=== PATIENT | male | born 1975 | race Caucasian/White ===

== ENCOUNTER 2016-04-29 07:44 | Outpatient (CLI) | payer MEDICAID | END 2016-04-29 07:45 | disposition home or self-care (01) | DX: E78.5 Hyperlipidemia, unspecified (principal); R63.5 Abnormal weight gain; R73.9 Hyperglycemia, unspecified ==

== ENCOUNTER 2018-01-05 21:04 | Inpatient (IN) | payer SELFPAY ==
--- NOTE | 2018-01-05 21:16 | ED Physician Documentation ---
PD HPI ABD PAIN - Stated complaint Stated Complaint: ABD PX/VOMITING/MALE - Chief complaint Chief Complaint: Abd Pain - History obtained from History obtained from: Patient - History of Present Illness Timing - onset: How many days ago (2-3) Timing - duration: Days (2-3 days of initially lower abd pain midline then to both sides. Today has had increased pain with generalized area to now whole abd, radiating to back and down to testicles area. Nausea with vomiting. Had some loose stools/diarrhea twice yesterday and today. No noted blood in stool.) Timing - details: Gradual onset, Still present Quality: Cramping, Aching, Pain (severe) Location: All over / everywhere (today), Suprapubic (initially lower abd) Radiation: Lower back, Other (testicles) Improved by: Eating. No: Vomiting Worsened by: Moving, Position, Palpation. No: Breathing Associated symptoms: Nausea, Vomiting, Diarrhea, Loss of appetite. No: Fever, Hematemesis, Hematochezia, Dysuria, Hematuria Similar symptoms before: Has not had sx before Recently seen: Not recently seen Review of Systems Constitutional: reports: Chills, Myalgias. denies: Fever Nose: denies: Rhinorrhea / runny nose, Congestion Throat: denies: Sore throat Respiratory: denies: Cough GI: reports: Abdominal Pain, Abdominal Swelling (moderately today), Nausea, Vomiting, Diarrhea. denies: Constipation, Hematemesis, Bloody / black stool : denies: Dysuria, Frequency Skin: denies: Rash Musculoskeletal: denies: Neck pain, Back pain Neurologic: reports: Generalized weakness. denies: Focal weakness, Numbness, Near syncope, Altered mental status, Headache PD PAST MEDICAL HISTORY - Past Medical History Cardiovascular: None Respiratory: Asthma GI: None : None, Kidney stones HEENT: None Psych: ADD/ADHD Musculoskeletal: None - Past Surgical History Past Surgical History: No - Present Medications Home Medications: Ambulatory Orders Medication Instructions Recorded Confirmed traMADol [Ultram] 50 mg PO Q4-6H PRN #30 tablet 04/02/14 Dextroamphetamine/Amphetamine 30 mg PO BID 07/29/15 07/29/15 [Adderall 30 mg Tablet] Lamotrigine [Lamotrigine ER] 100 mg PO BID 06/04/16 06/04/16 - Allergies Allergies/Adverse Reactions: Allergies Allergy/AdvReac Type Severity Reaction Status Date / Time hydrocodone bitartrate * Allergy Intermediate Hallucinati Verified 10/02/14 16:07 [From Vicodin] ons - Social History Does the pt smoke?: No Smoking Status: Former smoker Does the pt drink ETOH?: No Does the pt have substance abuse?: No - Immunizations Immunizations are current?: Yes - POLST Patient has POLST: No PD ED PE NORMAL - Vitals Vital signs reviewed: Yes - General General: Alert and oriented X 3, Well developed/nourished, Other (appears in significant pain. Pain with movements, and is hunched over. ) - Cardiac Cardiac: RRR, No murmur - Respiratory Respiratory: Clear bilaterally - Abdomen Abdomen: No organomegaly, Other (diffuse tender, most in lower abd, with guarding to light touch, involuntary guarding, percussion and rebound tenderness. No inguinal hernias. No swelling nor tenderness of scrotum. ). No: Normal bowel sounds (decreased), Soft - Male Male : Other (normal exam without swelling. ) - Rectal Rectal: Deferred - Back Back: No CVA TTP - Derm Derm: Normal color, Warm and dry - Extremities Extremities: No deformity - Neuro Neuro: Alert and oriented X 3, No motor deficit, Normal speech Results - Vitals Vitals: Vital Signs - 24 hr 01/05/18 21:10 Temperature 37.5 C Heart Rate 103 H Respiratory 17 Rate Blood Pressure 140/73 H O2 Saturation 96 Oxygen O2 Source Room air - Labs Labs: Laboratory Tests 01/05/18 01/05/18 01/05/18 21:46 21:46 21:46 WBC 8.7 RBC 5.23 Hgb 14.3 Hct 42.3 MCV 80.9 MCH 27.4 MCHC 33.9 RDW 15.1 H Plt Count 171 MPV 8.1 Neut # (Auto) 7.1 H Lymph # (Auto) 1.0 L Woodruff # (Auto) 0.5 Eos # (Auto) 0.0 Baso # (Auto) 0.1 Absolute Nucleated RBC 0.00 Nucleated RBC % 0.0 Sodium 133 L Potassium 4.0 Chloride 98 L Carbon Dioxide 27 Anion Gap 8.0 BUN 12 Creatinine 1.1 Estimated GFR (MDRD) 73 L Glucose 121 H Lactic Acid 1.4 Calcium 8.8 Total Bilirubin 0.7 AST 29 ALT 27 Alkaline Phosphatase 68 Total Protein 7.5 Albumin 3.8 Globulin 3.7 Albumin/Globulin Ratio 1.0 Lipase 26 - Rads (name of study) abd/pelvic CT Radiology: Prelim report reviewed, Discussed with rads (sigmoid diverticulitis with small dots of free air, no abscess nor drainable fluid collection, no significant free fluid.), EMP read contemporaneously (area of inflammation around sigmoid colon and spots of free air throughout abd cavity c/w small perforation, likely diverticular. ) PD MEDICAL DECISION MAKING - ED course Complexity details: reviewed results, re-evaluated patient (Lessened pain and no vomiting. Abd still diffusely tender with peritoneal signs. Still no fever. Will give repeat pain meds. ), considered differential (exam concerning for acute peritonitis. No history of diverticulitis. Will get CT. Give IV fluids and meds. Keep NPO. ), d/w patient, d/w home energy consultant supervisor (Dr. Ordonez, Surgery, who said it would not be surgical at this point. Defers to Hospitalist. S/W Hospitalist who will see and admit the patient. ) Departure - Departure Disposition: 66 [facility] DC/Xfer Clinical Impression: Acute diverticulitis, Perforated diverticulum of large intestine Abdominal pain Qualifiers: Abdominal location: generalized Qualified Code(s): R10.84 - Generalized abdominal pain Condition: Stable Record reviewed to determine appropriate education?: Yes
[2018-01-05] MEDS ORDERED: SODIUM CHLORIDE 0.9% 1,000 ML IV ONE ×2 (21:28→23:01)
[2018-01-05] MEDS ORDERED: HYDROmorphone 1 MG/ML CARPUJECT IVP STA ×2 (21:28→22:39)
[2018-01-05] MEDS ORDERED: ONDANSETRON 4 MG/2 ML VIAL IVP STA (21:28)
[2018-01-05 21:55] LABS: BASOPHILS # (AUTO) 0.1 10^3/uL (0.0-0.1); BASOPHILS % (AUTO) 1.2 %; EOSINOPHILS % (AUTO) 0.1 %; HGB - HEMOGLOBIN 14.3 g/dL (14.0-18.0); LYMPHOCYTES % (AUTO) 11.5 %; MEAN CORPUSCULAR HEMOGLOBIN 27.4 pg (27.0-31.0); MEAN CORPUSCULAR HGB CONC 33.9 g/dL (32.0-36.0); MEAN CORPUSCULAR VOLUME 80.9 fL (80.0-94.0); MEAN PLATELET VOLUME 8.1 fL (7.4-11.4); MONOCYTES # (AUTO) 0.5 10^3/uL (0.0-1.0); MONOCYTES % (AUTO) 5.9 %; NEUTROPHILS # (AUTO) 7.1 10^3/uL (1.5-6.6); NEUTROPHILS % (AUTO) 81.3 %; PLT - PLATELET COUNT 171 10^3/uL (130-450); RED BLOOD COUNT 5.23 10^6/uL (4.70-6.10); RED CELL DISTRIBUTION WIDTH 15.1 % (12.0-15.0); WHITE BLOOD COUNT 8.7 x10^3/uL (4.8-10.8)
[2018-01-05] MEDS ORDERED: IOPAMIDOL-300 100 ML VIAL ONE (21:59)
[2018-01-05 22:08] LABS: ALBUMIN 3.8 g/dL (3.2-5.5); BILIRUBIN,TOTAL 0.7 mg/dL (0.2-1.0); CALCIUM 8.8 mg/dL (8.5-10.3); CREATININE 1.1 mg/dL (0.6-1.2); TOTAL PROTEIN 7.5 g/dL (6.7-8.2)
[2018-01-05] MEDS ORDERED: metroNIDAZOLE 500 MG/100 ML 500 MG/100 ML BAG IV ONE (22:27)
[2018-01-05] MEDS ORDERED: AMPICILLIN/SULBACTAM 3 GM in SODIUM CHLORIDE 0.9% MINIBAG 100 ML IV STA (22:27)
[2018-01-05] MEDS ORDERED: IOPAMIDOL-300 100 ML VIAL IVP ONE (22:33)
--- NOTE | 2018-01-05 22:50 | CT Report ---
Reason: lower abd pain, now diffuse pain 2 days Procedure Date: 01/05/2018 Accession Number: [id number] / [id number] Procedure: CT - Abdomen/Pelvis W/ CPT Code: FULL RESULT: EXAM: CT ABDOMEN AND PELVIS EXAM DATE: 01/05/2018 10:16 PM. CLINICAL HISTORY: Lower abd pain, now diffuse pain 2 days. COMPARISONS: 07/20/2013. TECHNIQUE: Routine helical CT imaging was performed through the abdomen and pelvis. IV contrast: 100 ML ISOVUE 300. Enteric contrast: No. Reconstructions: Coronal and sagittal. In accordance with CT protocol optimization, one or more of the following dose reduction techniques were utilized for this exam: automated exposure control, adjustment of mA and/or KV based on patient size, or use of iterative reconstructive technique. FINDINGS: Lung Bases: Unremarkable. Liver: Normal. No masses. Gallbladder/Bile Ducts: Unremarkable. Spleen: Normal. Pancreas: Normal. Adrenal Glands: Normal. Kidneys: Small left renal cyst. Otherwise unremarkable. No hydronephrosis. Peritoneal Cavity/Bowel: Mild colonic diverticulosis with prominent wall thickening in the sigmoid colon and infiltration of adjacent fat. Trace amounts of free air can be seen tracking into the mesentery and anteriorly in the mid abdomen. No drainable fluid collection, significant free fluid, bowel dilation, or lymphadenopathy. The appendix is well visualized and normal. Pelvic Organs: Normal. The bladder and visualized pelvic organs are within normal limits. Vasculature: No aneurysms or other significant abnormality. Bones: No significant abnormality. Other: None. IMPRESSION: Mild diverticulosis with marked acute sigmoid diverticulitis and trace amounts of free air compatible with perforation. RADIA The above findings were discussed with Ricco Pinon by Dr. Donny Bean at 22:48 hrs on 01/05/18.
[2018-01-05] MEDS ORDERED: SODIUM CHLORIDE FLUSH 0.9% 10 ML SYRINGE IVP PRN (23:04)
[2018-01-05] MEDS ORDERED: ZOLPIDEM 5 MG TABLET PO PRN (23:04)
[2018-01-05 23:06] LABS: BILIRUBIN,URINE NEGATIVE (NEGATIVE); GLUCOSE, URINE (UA) NEGATIVE (NEGATIVE); KETONES,URINE (UA) TRACE mg/dL (NEGATIVE); LEUKOCYTE ESTERASE, URINE NEGATIVE (NEGATIVE); NITRITE,URINE NEGATIVE (NEGATIVE); OCCULT BLOOD,URINE NEGATIVE (NEGATIVE); PROTEIN,URINE NEGATIVE (NEGATIVE); UROBILINOGEN,URINE 0.2 (NORMAL) E.U./dL (NORMAL)
[2018-01-05 23:07] LABS: CLARITY,URINE CLEAR (CLEAR)
[2018-01-05] MEDS ORDERED: ONDANSETRON 4 MG/2 ML VIAL IVP PRN (23:09)
[2018-01-05] MEDS ORDERED: METOPROLOL 5 MG/5 ML VIAL IVP PRN (23:15)
[2018-01-05] MEDS ORDERED: LORazepam 2 MG/ML VIAL IVP PRN (23:51)
--- NOTE | 2018-01-05 23:56 | HISTORY & PHYSICAL EXAMINATION ---
History of Present Illness - Admitted From Admitted From:: ED - History Obtained From Records Reviewed: ED Notes History obtained from: Patient and Dr Pinon (ED physician) Exam Limitations: None - History of Present Illness HPI Comment/Other: Patient is a 42-year-old obese male who has a past medical history of untreated hypertension, anxiety, PTSD, depression, who presents with a 2-day history of progressively worsening generalized abdominal pain associated with nausea, vomiting, and subjective fevers and chills that developed last night. Patient also notes that he had 2 episodes of diarrhea last night and noted some dark red coloring to the stool. He presented to the emergency room for further evaluation at the suggestion of his significant other, whereupon in the ER a CT scan of the abdomen was performed and this showed acute diverticulitis with microperforations demonstrated by free air without any abscess, or large perforations. Lab work did not demonstrate any evidence of lactic acidosis or sepsis. His blood work was relatively unremarkable and he has generally no other significant comorbidities. Dr. Mcdermott, general surgery was consulted, and he felt that he did not need any surgical intervention at this time and was unlikely to require any as long as appropriate IV antibiotics were initiated.Due to his pain he did require 2 doses of IV Dilaudid.He was given a single dose of Unasyn and Flagyl and I was called to admit the patient to the medical service. History - Past Medical History Cardiovascular: reports: None, Hypertension (Patient has been told he should take blood pressure medications but has not) GI: reports: None : reports: None, Kidney stones HEENT: reports: None Psych: reports: Depression, Anxiety, ADD/ADHD, Post traumatic stress disorder Musculoskeletal: reports: Chronic back pain MRSA Hx?: No - Past Surgical History Other past surgical history: Orchiectomy as a child - Family & Social History Family History: Mother: , CAD, Diabetes, Type 2, Mental Illness Living arrangement: At home Social History Notes: Patient lives in [place], works in [employer] - Substance History Use: Uses substance without health or social issues: NONE (Patient is a previous smoker quit 4 years ago with a greater than [id number] history) Abuse: Recurrent use of substance despite neg consequences: NONE - POLST Patient has POLST: No Meds/Allgy - Home Medications Home Medications: Ambulatory Orders Medication Instructions Recorded Confirmed traMADol [Ultram] 50 mg PO Q4-6H PRN #30 tablet 04/02/14 Lamotrigine [Lamotrigine ER] 100 mg PO BID 07/29/15 07/29/15 - Allergies Allergies/Adverse Reactions: Allergies Allergy/AdvReac Type Severity Reaction Status Date / Time hydrocodone bitartrate * Allergy Intermediate Hallucinati Verified 10/02/14 16:07 [From Vicodin] ons Review of Systems - Constitutional Constitutional: reports: Fatigue, Fever, Chills, Malaise, Night sweats - Cardiovascular Cariovascular: denies: Chest pain - Respiratory Respiratory: denies: SOB at rest - Gastrointestinal Gastrointestinal: reports: Abdominal pain, Abdominal distention, Diarrhea, Change in bowel habits, Bloody stools, Vomiting, Bile emesis. denies: Rectal bleeding, Black stools, Micheal blood emesis - Genitourinary Genitourinary: denies: Frequency - Musculoskeletal Musculoskeletal: reports: Back pain - Neurological Neurological: reports: Headache - Psychiatric Psychiatric: reports: Depression, Anxiety Prior Level of Functionality: Fully independent and employed Exam - Vital Signs Reviewed Vital Signs: Yes Vital Signs: Vital Signs x48h Temp Pulse Resp BP Pulse Ox 01/05/18 21:10 37.5 C 103 H 17 140/73 H 96 - Physical Exam General Appearance: positive: No acute distress Eyes Bilateral: positive: Normal inspection ENT: positive: ENT inspection nml Neck: positive: Nml inspection Respiratory: positive: Chest non-tender, No respiratory distress, Breath sounds nml Cardiovascular: positive: Regular rate & rhythm, No murmur, No gallop Peripheral Pulses: positive: 2+ Abdomen: positive: Tenderness, Guarding, Rebound Skin: positive: Color nml, No rash, Warm Extremities: positive: Nml appearance, No pedal edema Neurologic/Psychiatric: positive: Oriented x3, CN's nml (2-12), Motor nml, Sensation nml Conclusion/Plan - Problem List (1) Acute diverticulitis Conclusion/Plan: Based on CT scan results, microperforation with acute diverticulitis, patient will be treated with medical management. We will start with IV Zosyn as monotherapy given that this is uncomplicated otherwise. Surgery is aware but at this point no need for surgical intervention. We will follow closely with serial abdominal exams and should things worsen we can reconsider surgical consult. Will repeat labs in the morning but at this point no leukocytosis or evidence of sepsis. Will provide pain control with IV morphine. (2) Perforated diverticulum of large intestine Conclusion/Plan: As discussed above, microperforation which can be treated medically. Will be monitored closely and consider surgical consult should IV Zosyn or other appropriate antibiotics failed to improve symptoms. (3) Hypertension Conclusion/Plan: Patient has apparently been told he has underlying hypertension. His blood pressure is currently elevated. I will start him on lisinopril 20 mg once daily and provide as needed metoprolol. (4) Depression Conclusion/Plan: We will resume the patient's home citalopram and lamotrigine. Qualifiers: Depression Type: major depressive disorder Major depression recurrence: sin gle episode Active/Remission status: currently active Psychotic features: without psychotic features (5) Anxiety Conclusion/Plan: Patient has underlying anxiety. We will provide as needed Ativan at night - Lab Results Lab results reviewed: Yes Fish Bones: 01/05/18 21:46 01/05/18 21:46 - Diagnostic Imaging Results Diagnostic Imaging Results: positive: Final report reviewed Core Measures - Anticipated LOS I expect patient to be DC'd or transferred within 96 hours.: Yes - DVT/VTE - Prophylaxis VTE/DVT Device ordered at admit?: Yes VTE/DVT Prophylaxis med ordered at admit?: Yes
[2018-01-06] MEDS: MORPHINE 2 MG/ML CARPUJECT IVP PRN ×3 (01:26→06:12)
[2018-01-06] MEDS: SODIUM CHLORIDE FLUSH 0.9% 10 ML SYRINGE IVP SCH ×4 (01:27→15:56)
[2018-01-06] MEDS: DEXTROSE 5%-0.9% NACL 1,000 ML IV SCH ×3 (01:28→23:49)
[2018-01-06] MEDS: PIPERACILLIN/TAZOBACTAM 3.375 GM in SODIUM CHLORIDE 0.9% MINIBAG 100 ML IV SCH ×5 (01:31→23:49)
[2018-01-06 05:46] LABS: HGB - HEMOGLOBIN 13.1 g/dL (14.0-18.0); MEAN CORPUSCULAR HEMOGLOBIN 26.9 pg (27.0-31.0); MEAN CORPUSCULAR HGB CONC 32.9 g/dL (32.0-36.0); MEAN CORPUSCULAR VOLUME 81.9 fL (80.0-94.0); MEAN PLATELET VOLUME 8.3 fL (7.4-11.4); RED BLOOD COUNT 4.88 10^6/uL (4.70-6.10); RED CELL DISTRIBUTION WIDTH 15.1 % (12.0-15.0); WHITE BLOOD COUNT 12.3 x10^3/uL (4.8-10.8)
[2018-01-06 05:53] LABS: CALCIUM 7.7 mg/dL (8.5-10.3)
[2018-01-06] MEDS: PANTOPRAZOLE 40 MG VIAL IVP SCH (06:12)
[2018-01-06] MEDS ORDERED: ACETAMINOPHEN 325 MG TABLET PO PRN (06:59)
[2018-01-06] MEDS: HYDROmorphone 2 MG/ML VIAL IVP PRN ×5 (07:42→23:47)
--- NOTE | 2018-01-06 08:07 | CONSULTATION NOTE ---
Referring Provider Consult Date: 01/06/18 Chief Complaint - Chief Complaint Chief Complaint: abdominal pain History of Present Illness - History of Present Illness HPI Comment/Other: 42 yo man who presented to the ER c/o lower abdominal pain since Friday. A CT showed sigmoid inflammation with a few tiny bubbles of free air around the sigmoid. He otherwise had unremarkable labs and normal vitals. He was admitted on antibiotics and close monitoring for non-surgical resolution. This morning, his pain is unchanged. His WBC is slightly elevated and he has had a fever, although he is afebrile now. History - Past Medical History Cardiovascular: reports: None, Hypertension Respiratory: reports: Asthma Endocrine/Autoimmune: reports: None GI: reports: None : reports: Kidney stones HEENT: reports: None Psych: reports: Depression, Anxiety, ADD/ADHD, Post traumatic stress disorder Musculoskeletal: reports: Chronic back pain Derm: reports: None MRSA Hx?: No - Past Surgical History Other past surgical history: Orchiectomy as a child - Family & Social History Family History: Mother: , CAD, Diabetes, Type 2, Mental Illness Living arrangement: At home Social History Notes: Patient lives in [place], works in [employer] - Substance History Use: Uses substance without health or social issues: NONE (Patient is a previous smoker quit 4 years ago with a greater than [id number] history) Abuse: Recurrent use of substance despite neg consequences: NONE - POLST Patient has POLST: No Meds/Allgy - Home Medications Home Medications: Ambulatory Orders Medication Instructions Recorded Confirmed traMADol [Ultram] 50 mg PO Q4-6H PRN #30 tablet 04/02/14 Lamotrigine [Lamotrigine ER] 100 mg PO BID 07/29/15 07/29/15 - Allergies Allergies/Adverse Reactions: Allergies Allergy/AdvReac Type Severity Reaction Status Date / Time hydrocodone bitartrate * Allergy Intermediate Hallucinati Verified 10/02/14 16:07 [From Vicodin] ons Review of Systems - Ears, Nose & Throat Ears, Nose & Throat: reports: Hearing loss - Gastrointestinal Gastrointestinal: reports: Abdominal pain Exam - Vital Signs Vital Signs: Vital Signs x48h Temp Pulse Resp BP Pulse Ox 01/06/18 07:52 36.7 C 94 18 125/71 01/06/18 06:42 93 01/06/18 02:49 37.7 C H 01/06/18 00:50 38.8 C H 108 H 20 137/82 H 93 - Physical Exam General Appearance: positive: Mild distress Eyes Bilateral: positive: Normal inspection ENT: positive: ENT inspection nml Neck: positive: Nml inspection Respiratory: positive: Chest non-tender Abdomen: positive: Tenderness, Guarding Back: positive: Nml inspection Skin: positive: Color nml Extremities: positive: Non-tender Neurologic/Psychiatric: positive: Oriented x3 Conclusion/Plan - Diagnosis Diagnosis: Diverticulitis - Plan Plan: His presentation is most consistent with a microperforated diverticulitis. He is complaining of severe pain in the lower abdomen, but otherwise his presentation is c/w an episode that should respond to medical management. Surgical options were discussed and the pt expressed his desire to avoid surgery. He does not need surgery at this time. - Lab Results Lab results reviewed: Yes Fish Bones: 01/06/18 05:21 01/06/18 05:21
[2018-01-06] MEDS ORDERED: lamoTRIgine 100 MG TABLET PO SCH ×2 (09:00→19:54)
[2018-01-06] MEDS: CITALOPRAM 10 MG TABLET PO SCH (09:06)
[2018-01-06] MEDS: POLYETHYLENE GLYCOL 3350 17 GM PACKET PO SCH (09:06)
[2018-01-06] MEDS: LISINOPRIL 20 MG TABLET PO SCH (09:07)
[2018-01-06] MEDS: HEPARIN 5,000 UNIT/ML VIAL SUBQ SCH ×2 (09:07→20:27)
--- NOTE | 2018-01-06 15:01 | PROVIDER PROGRESS NOTE ---
Assessment/Plan - Problem List (1) Acute diverticulitis Assessment/Plan: Based on CT scan results, microperforation with acute diverticulitis, patient will be treated with medical management. Patient started on IV Zosyn as monotherapy given that this is uncomplicated otherwise. Surgery is aware but at this point no need for surgical intervention. This morning the patient has a worsening WBC which is up to 12,000 from normal. He had a fever overnight 38.8 and continues to have worsening abdominal pain. Patient's pain medication dose was changed to Dilaudid 3 mg with which patient finally has some relief of his pain. Surgery has been consulted and will monitor the patient closely. For now surg delores recommends continuing IV antibiotics and will consider colectomy if patient becomes septic or symptoms are not resolving. Surgery does not recommend follow-up CT scan at this time. (2) Perforated diverticulum of large intestine Conclusion/Plan: As discussed above, microperforation which can be treated medically. Surgery has been consulted and we will continue IV Zosyn. (3) Hypertension Conclusion/Plan: Patient has apparently been told he has underlying hypertension. Patient's blood pressure was elevated on presentation and therefore patient was started on 20 mg of lisinopril. Patient's blood pressure is now well controlled we will continue to monitor his blood pressure and titrate medication as needed. (4) Depression Conclusion/Plan: We will resume the patient's home citalopram and lamotrigine. Stable Qualifiers: Depression Type: major depressive disorder Major depression recurrence: single episode Active/Remission status: currently active Psychotic features: without psychotic features (5) Anxiety Conclusion/Plan: Patient has underlying anxiety. We will provide as needed Ativan at night Patient does display anxiety when talking about possible surgery. - Current Meds Current Meds: Current Medications Generic Name Dose Route Start Last Admin Trade Name Freq PRN Reason Stop Dose Admin Citalopram Hydrobromide 20 mg 01/06/18 09:00 01/06/18 09:06 Celexa PO 20 mg DAILY JENNIFER Administration Heparin Sodium (Porcine) 5,000 unit 01/06/18 09:00 01/06/18 09:07 SUBQ 5,000 unit BID JENNIFER Administration Hydromorphone HCl 3 mg 01/06/18 06:57 01/06/18 11:28 Dilaudid (Vial) IVP 3 mg Q3H PRN Administration PAIN Dextrose/Sodium Chloride 1,000 mls @ 100 mls/hr 01/05/18 23:45 01/06/18 12:21 D5ns IV 100 mls/hr .Q10H JENNIFER Administration Piperacillin Sod/Tazobactam 100 mls @ 200 mls/hr 01/06/18 00:00 01/06/18 13:40 Sod 3.375 gm/ Sodium Chloride IV 01/11/18 00:00 Infused Q6HR JENNIFER Infusion Lisinopril 20 mg 01/06/18 09:00 01/06/18 09:07 Zestril PO 20 mg DAILY JENNIFER Administration Pantoprazole Sodium 40 mg 01/06/18 07:00 01/06/18 06:12 Protonix IVP 40 mg QDAC JENNIFER Administration Polyethylene Glycol 17 gm 01/06/18 09:00 01/06/18 09:06 Miralax PO 17 gm DAILY JENNIFER Administration Sodium Chloride 10 ml 01/05/18 23:04 01/06/18 06:12 Normal Saline Flush 0.9% IVP 10 ml PRN PRN Administration NEEDED PER PROVIDER ORDERS Sodium Chloride 10 ml 01/06/18 01:00 01/06/18 12:21 Normal Saline Flush 0.9% IVP 10 ml 0100,0900,1700 JENNIFER Administration - Lab Result Lab results reviewed: Yes Fish Bone Diagrams: 01/06/18 05:21 01/06/18 05:21 Other Lab Results: Laboratory Results WBC 12.3 x10^3/uL (4.8-10.8) H 01/06/18 05:21 RBC 4.88 10^6/uL (4.70-6.10) 01/06/18 05:21 Hgb 13.1 g/dL (14.0-18.0) L 01/06/18 05:21 Hct 40.0 % (42.0-52.0) L 01/06/18 05:21 MCV 81.9 fL (80.0-94.0) 01/06/18 05:21 MCH 26.9 pg (27.0-31.0) L 01/06/18 05:21 MCHC 32.9 g/dL (32.0-36.0) 01/06/18 05:21 RDW 15.1 % (12.0-15.0) H 01/06/18 05:21 Plt Count 158 10^3/uL (130-450) 01/06/18 05:21 MPV 8.3 fL (7.4-11.4) 01/06/18 05:21 Neut # (Auto) 7.1 10^3/uL (1.5-6.6) H 01/05/18 21:46 Lymph # (Auto) 1.0 10^3/uL (1.5-3.5) L 01/05/18 21:46 [place] # (Auto) 0.5 10^3/uL (0.0-1.0) 01/05/18 21:46 Eos # (Auto) 0.0 10^3/uL (0.0-0.7) 01/05/18 21:46 Baso # (Auto) 0.1 10^3/uL (0.0-0.1) 01/05/18 21:46 Absolute Nucleated RBC 0.00 x10^3/uL 01/05/18 21:46 Nucleated RBC % 0.0 /100WBC 01/05/18 21:46 Sodium 130 mmol/L (135-145) L 01/06/18 05:21 Potassium 3.6 mmol/L (3.5-5.0) 01/06/18 05:21 Chloride 100 mmol/L (101-111) L 01/06/18 05:21 Carbon Dioxide 25 mmol/L (21-32) 01/06/18 05:21 Anion Gap 5.0 (6-13) L 01/06/18 05:21 BUN 11 mg/dL (6-20) 01/06/18 05:21 Creatinine 1.0 mg/dL (0.6-1.2) 01/06/18 05:21 Estimated GFR (MDRD) 81 (>89) L 01/06/18 05:21 Glucose 135 mg/dL (70-100) H 01/06/18 05:21 Lactic Acid 0.7 mmol/L (0.5-2.2) 01/06/18 08:16 Calcium 7.7 mg/dL (8.5-10.3) L 01/06/18 05:21 Total Bilirubin 0.7 mg/dL (0.2-1.0) 01/05/18 21:46 AST 29 IU/L (10-42) 01/05/18 21:46 ALT 27 IU/L (10-60) 01/05/18 21:46 Alkaline Phosphatase 68 IU/L (42-121) 01/05/18 21:46 Total Protein 7.5 g/dL (6.7-8.2) 01/05/18 21:46 Albumin 3.8 g/dL (3.2-5.5) 01/05/18 21:46 Globulin 3.7 g/dL (2.1-4.2) 01/05/18 21:46 Albumin/Globulin Ratio 1.0 (1.0-2.2) 01/05/18 21:46 Lipase 26 U/L (22-51) 01/05/18 21:46 Urine Color YELLOW 01/05/18 23:00 Urine Clarity CLEAR (CLEAR) 01/05/18 23:00 Urine pH 7.0 PH (5.0-7.5) 01/05/18 23:00 Ur Specific [place] 1.015 (1.002-1.030) 01/05/18 23:00 Urine Protein NEGATIVE mg/dL (NEGATIVE) 01/05/18 23:00 Urine Glucose (UA) NEGATIVE mg/dL (NEGATIVE) 01/05/18 23:00 Urine Ketones TRACE mg/dL (NEGATIVE) 01/05/18 23:00 Urine Occult Blood NEGATIVE (NEGATIVE) 01/05/18 23:00 Urine Nitrite NEGATIVE (NEGATIVE) 01/05/18 23:00 Urine Bilirubin NEGATIVE (NEGATIVE) 01/05/18 23:00 Urine Urobilinogen 0.2 (NORMAL) E.U./dL (NORMAL) 01/05/18 23:00 Ur Leukocyte Esterase NEGATIVE (NEGATIVE) 01/05/18 23:00 Ur Microscopic Review NOT INDICATED 01/05/18 23:00 Urine Culture Comments NOT INDICATED 01/05/18 23:00 - Diagnostic Imaging Results Diagnostic Imaging Results: Final report reviewed Diagnostic Imaging Results Comments: CT abdomen/pelvis Impression: Mild diverticulosis with marked acute sigmoid diverticulitis and trace amount of free air compatible with perforation. - Additional Planning Condition/Complexity: Guarded My Orders: My Active Orders 01/06/18 Financial Assistance [[email or web address]] Routine Consult/Specialty: Surgery Plan Discussed with:: Patient Time Spent: 31-60 minutes Subjective - Subjective Patient Reports: Abdominal Pain (Patient continues to have diffuse abdominal pain which is better controlled with 3 mg of IV Dilaudid this morning), Fever, Nausea Nursing Reports: Pain Objective Vital Signs: Vital Signs - 24 hr 01/05/18 01/06/18 01/06/18 21:10 00:04 00:50 Temperature 37.5 C 37.8 C H 38.8 C H Heart Rate 103 H 112 H Heart Rate [ 108 H Brachial] Respiratory 17 17 20 Rate Blood Pressure 140/73 H 127/79 Blood Pressure 137/82 H [Right Brachial artery] O2 Saturation 96 93 93 01/06/18 01/06/18 01/06/18 02:49 06:42 07:52 Temperature 37.7 C H 36.7 C Heart Rate Heart Rate [ 94 Brachial] Respiratory 18 Rate Blood Pressure Blood Pressure 125/71 [Right Brachial artery] O2 Saturation 93 Oxygen O2 Source Room air I&O (Last 24 Hrs): Intake and Output Totals x24h 01/04/18 01/05/18 01/06/18 23:59 23:59 23:59 Intake Total 1100 2760 Balance 1100 2760 General: Alert, Oriented x3, Moderate distress (Pain and anxiety), Other (Diaphoretic) HEENT: Atraumatic, PERRLA, EOMI, Other (Dry mucous membranes.) Neck: Supple, No JVD, No thyromegaly, +2 carotid pulse wo bruit, No LAD Lymphatic: no adenopathy Neuro: Alert, Non Focal, CN 2-12 Grossly Intact, Oriented Times 3 Cardiovascular: Regular rate, Normal S1, Normal S2, No murmurs Respiratory: Chest non-tender, No respiratory distress, Breath sounds nml Abdomen: Normal bowel sounds, Other (Diffuse tenderness. Guarding. Soft abdomen.) Extremities: No clubbing, No cyanosis, No edema, Normal pulses Skin: No rashes, No breakdown - Results Results: Laboratory Results WBC 12.3 x10^3/uL (4.8-10.8) H 01/06/18 05:21 RBC 4.88 10^6/uL (4.70-6.10) 01/06/18 05:21 Hgb 13.1 g/dL (14.0-18.0) L 01/06/18 05:21 Hct 40.0 % (42.0-52.0) L 01/06/18 05:21 MCV 81.9 fL (80.0-94.0) 01/06/18 05:21 MCH 26.9 pg (27.0-31.0) L 01/06/18 05:21 MCHC 32.9 g/dL (32.0-36.0) 01/06/18 05:21 RDW 15.1 % (12.0-15.0) H 01/06/18 05:21 Plt Count 158 10^3/uL (130-450) 01/06/18 05:21 MPV 8.3 fL (7.4-11.4) 01/06/18 05:21 Neut # (Auto) 7.1 10^3/uL (1.5-6.6) H 01/05/18 21:46 Lymph # (Auto) 1.0 10^3/uL (1.5-3.5) L 01/05/18 21:46 [place] # (Auto) 0.5 10^3/uL (0.0-1.0) 01/05/18 21:46 Eos # (Auto) 0.0 10^3/uL (0.0-0.7) 01/05/18 21:46 Baso # (Auto) 0.1 10^3/uL (0.0-0.1) 01/05/18 21:46 Absolute Nucleated RBC 0.00 x10^3/uL 01/05/18 21:46 Nucleated RBC % 0.0 /100WBC 01/05/18 21:46 Sodium 130 mmol/L (135-145) L 01/06/18 05:21 Potassium 3.6 mmol/L (3.5-5.0) 01/06/18 05:21 Chloride 100 mmol/L (101-111) L 01/06/18 05:21 Carbon Dioxide 25 mmol/L (21-32) 01/06/18 05:21 Anion Gap 5.0 (6-13) L 01/06/18 05:21 BUN 11 mg/dL (6-20) 01/06/18 05:21 Creatinine 1.0 mg/dL (0.6-1.2) 01/06/18 05:21 Estimated GFR (MDRD) 81 (>89) L 01/06/18 05:21 Glucose 135 mg/dL (70-100) H 01/06/18 05:21 Lactic Acid 0.7 mmol/L (0.5-2.2) 01/06/18 08:16 Calcium 7.7 mg/dL (8.5-10.3) L 01/06/18 05:21 Total Bilirubin 0.7 mg/dL (0.2-1.0) 01/05/18 21:46 AST 29 IU/L (10-42) 01/05/18 21:46 ALT 27 IU/L (10-60) 01/05/18 21:46 Alkaline Phosphatase 68 IU/L (42-121) 01/05/18 21:46 Total Protein 7.5 g/dL (6.7-8.2) 01/05/18 21:46 Albumin 3.8 g/dL (3.2-5.5) 01/05/18 21:46 Globulin 3.7 g/dL (2.1-4.2) 01/05/18 21:46 Albumin/Globulin Ratio 1.0 (1.0-2.2) 01/05/18 21:46 Lipase 26 U/L (22-51) 01/05/18 21:46 Urine Color YELLOW 01/05/18 23:00 Urine Clarity CLEAR (CLEAR) 01/05/18 23:00 Urine pH 7.0 PH (5.0-7.5) 01/05/18 23:00 Ur Specific [place] 1.015 (1.002-1.030) 01/05/18 23:00 Urine Protein NEGATIVE mg/dL (NEGATIVE) 01/05/18 23:00 Urine Glucose (UA) NEGATIVE mg/dL (NEGATIVE) 01/05/18 23:00 Urine Ketones TRACE mg/dL (NEGATIVE) 01/05/18 23:00 Urine Occult Blood NEGATIVE (NEGATIVE) 01/05/18 23:00 Urine Nitrite NEGATIVE (NEGATIVE) 01/05/18 23:00 Urine Bilirubin NEGATIVE (NEGATIVE) 01/05/18 23:00 Urine Urobilinogen 0.2 (NORMAL) E.U./dL (NORMAL) 01/05/18 23:00 Ur Leukocyte Esterase NEGATIVE (NEGATIVE) 01/05/18 23:00 Ur Microscopic Review NOT INDICATED 01/05/18 23:00 Urine Culture Comments NOT INDICATED 01/05/18 23:00 ABX Reporting Has patient been on IV antibiotics over the past 48 hours?: No Current Medications - Current Medications Current Medications: Active Medications Generic Name Dose Route Start Last Admin Trade Name Freq PRN Reason Stop Dose Admin Acetaminophen 650 mg 01/06/18 06:59 Tylenol PO Q4HR PRN Pain or Fever > 38C (100.4F) Citalopram Hydrobromide 20 mg 01/06/18 09:00 01/06/18 09:06 Celexa PO 20 mg DAILY JENNIFER Administration Heparin Sodium (Porcine) 5,000 unit 01/06/18 09:00 01/06/18 09:07 SUBQ 5,000 unit BID JENNIFER Administration Hydromorphone HCl 3 mg 01/06/18 06:57 01/06/18 11:28 Dilaudid (Vial) IVP 3 mg Q3H PRN Administration PAIN Dextrose/Sodium Chloride 1,000 mls @ 100 mls/hr 01/05/18 23:45 01/06/18 12:21 D5ns IV 100 mls/hr .Q10H JENNIFER Administration Piperacillin Sod/Tazobactam 100 mls @ 200 mls/hr 01/06/18 00:00 01/06/18 13:40 Sod 3.375 gm/ Sodium Chloride IV 01/11/18 00:00 Infused Q6HR JENNIFER Infusion Lisinopril 20 mg 01/06/18 09:00 01/06/18 09:07 Zestril PO 20 mg DAILY JENNIFER Administration Lorazepam 1 mg 01/05/18 23:51 Ativan Inj (Vial) IVP QPM PRN Anxiety Metoprolol Tartrate 5 mg 01/05/18 23:15 Lopressor Inj IVP Q2HR PRN hyperten Non-Formulary Medication 30 mg 01/06/18 09:00 Dextroamphetamine/Amphetamine [Adderall 30 Mg Tablet] PO BID JENNIFER Non-Formulary Medication 100 mg 01/06/18 09:00 Lamotrigine [Lamotrigine Er] PO BID JENNIFER Ondansetron HCl 4 mg 01/05/18 23:09 Zofran Inj IVP Q4HR PRN Nausea / Vomiting Pantoprazole Sodium 40 mg 01/06/18 07:00 01/06/18 06:12 Protonix IVP 40 mg QDAC JENNIFER Administration Polyethylene Glycol 17 gm 01/06/18 09:00 01/06/18 09:06 Miralax PO 17 gm DAILY JENNIFER Administration Sodium Chloride 10 ml 01/05/18 23:04 01/06/18 06:12 Normal Saline Flush 0.9% IVP 10 ml PRN PRN Administration NEEDED PER PROVIDER ORDERS Sodium Chloride 10 ml 01/06/18 01:00 01/06/18 12:21 Normal Saline Flush 0.9% IVP 10 ml 0100,0900,1700 JENNIFER Administration Zolpidem Tartrate 5 mg 01/05/18 23:04 Ambien PO QPM PRN Insomnia Albuterol Sulf [Ventolin Hfa Inhaler] 1 - 2 puffs INH Q4HR PRN 01/06/18 Citalopram Hydrobromide [Citalopram HBr] 20 mg PO DAILY 01/06/18 lamoTRIgine [LaMICtal] 100 mg PO BID 01/06/18
[2018-01-06] MEDS ORDERED: lamoTRIgine 100 MG TABLET PO ONE (19:29)
[2018-01-06] MEDS: LAMOTRIGINE 100 MG PO SCH (20:35)
[2018-01-06] MEDS ORDERED: ALBUTEROL NEB 2.5 MG/3 ML INH PRN (22:59)
[2018-01-07] MEDS: SODIUM CHLORIDE FLUSH 0.9% 10 ML SYRINGE IVP SCH ×4 (03:02→20:01)
[2018-01-07 05:54] LABS: HGB - HEMOGLOBIN 13.1 g/dL (14.0-18.0); MEAN CORPUSCULAR VOLUME 87.3 fL (80.0-94.0); MEAN PLATELET VOLUME 7.9 fL (7.4-11.4); RED BLOOD COUNT 4.85 10^6/uL (4.70-6.10); RED CELL DISTRIBUTION WIDTH 15.8 % (12.0-15.0); WHITE BLOOD COUNT 20.5 x10^3/uL (4.8-10.8)
[2018-01-07 05:59] LABS: CALCIUM 7.5 mg/dL (8.5-10.3); CREATININE 1.9 mg/dL (0.6-1.2)
[2018-01-07] MEDS ORDERED: NALOXONE 0.4 MG/ML VIAL IVP ONE ×2 (06:04→07:25)
--- NOTE | 2018-01-07 06:09 | PROVIDER PROGRESS NOTE ---
Tax Commissioner Note - Tax Commissioner Note Tax Commissioner Note: January 07, 2018 Called to see patient at 05:38 because he was found unresponsive. He is day 3 of being in the hospital. He was admitted on January 05 for diverticulitis with free air, elevated white cell count seen on CAT. Yesterday he had increased pain, increased white cell count, fever. He received 6 mg of morphine and 9 mg of Dilaudid over 24 hours in the patient who is opiate naive. Last dose was 23:00. He did have >700 on bladder scan last night and had an in an out Ivan inserted and removed. He does not take any pain medicine in the outpatient setting. General surgery has been consulted and feels the patient is nonoperative candidate at this time. His /significant other is in the room with him. She states that he has probable obstructive sleep apnea that has been undiagnosed and untreated. He has hypertension, kidney stones, PTSD with anxiety. His chronic back pain is treated with tramadol and lamotrigine. Nursing does report that he has been snoring all night long, and he last received Dilaudid at around 2300. says he sounds like this when he sleeps and she doesn't describe anything different other than snoring was louder overnight (she has been in room in guest bed) Active Medications Acetaminophen (Tylenol) 650 mg PO Q4HR PRN PRN Reason: Pain or Fever > 38C (100.4F) Albuterol () 2.5 mg INH RTQ4H PRN PRN Reason: Wheezing Citalopram Hydrobromide (Celexa) 20 mg PO DAILY [facility] Last Admin: 01/06/18 09:06 Dose: 20 mg Heparin Sodium (Porcine) () 5,000 unit SUBQ BID [facility] Last Admin: 01/06/18 20:27 Dose: 5,000 unit Hydromorphone HCl (Dilaudid (Vial)) 3 mg IVP Q3H PRN PRN Reason: PAIN Last Admin: 01/06/18 23:47 Dose: 3 mg Dextrose/Sodium Chloride (D5ns) 1,000 mls @ 100 mls/hr IV .Q10H [facility] Last Admin: 01/07/18 06:21 Dose: Not Given Piperacillin Sod/Tazobactam (Sod 3.375 gm/ Sodium Chloride) 100 mls @ 200 mls/hr IV Q6HR [facility] Stop: 01/11/18 00:00 Last Admin: 01/07/18 06:21 Dose: 200 mls/hr Sodium Chloride (Normal Saline 0.9%) 1,000 mls @ 100 mls/hr IV .Q10H [facility] Lisinopril (Zestril) 20 mg PO DAILY [facility] Last Admin: 01/06/18 09:07 Dose: 20 mg Lorazepam (Ativan Inj (Vial)) 1 mg IVP QPM PRN PRN Reason: Anxiety Metoprolol Tartrate (Lopressor Inj) 5 mg IVP Q2HR PRN PRN Reason: hyperten Non-Formulary Medication (Dextroamphetamine/Amphetamine [Adderall 30 Mg Tablet]) 30 mg PO BID [facility] Ondansetron HCl (Zofran Inj) 4 mg IVP Q4HR PRN PRN Reason: Nausea / Vomiting Pantoprazole Sodium (Protonix) 40 mg IVP QDAC [facility] Last Admin: 01/06/18 06:12 Dose: 40 mg Patient Own Med [ Lamotrigine 100mg Tab] 1 each PO BID [facility] Last Admin: 01/06/18 20:35 Dose: Not Given Polyethylene Glycol (Miralax) 17 gm PO DAILY [facility] Last Admin: 01/06/18 09:06 Dose: 17 gm Sodium Chloride (Normal Saline Flush 0.9%) 10 ml IVP PRN PRN PRN Reason: NEEDED PER PROVIDER ORDERS Last Admin: 01/06/18 06:12 Dose: 10 ml Sodium Chloride (Normal Saline Flush 0.9%) 10 ml IVP 0100,0900,1700 [facility] Last Admin: 01/07/18 03:02 Dose: Not Given Sodium Chloride (Normal Saline Flush 0.9%) 10 ml IVP 0100,0900,1700 [facility] Sodium Chloride (Normal Saline Flush 0.9%) 10 ml IVP PRN PRN PRN Reason: NEEDED PER PROVIDER ORDERS Zolpidem Tartrate (Ambien) 5 mg PO QPM PRN PRN Reason: Insomnia Albuterol Sulf [Ventolin Hfa Inhaler] 1 - 2 puffs INH Q4HR PRN 01/06/18 Citalopram Hydrobromide [Citalopram HBr] 20 mg PO DAILY 01/06/18 Naproxen Sodium [Aleve] 220 mg PO DAILY PRN 01/06/18 lamoTRIgine [LaMICtal] 100 mg PO BID 01/06/18 No vital signs have been recorded in the EMR yet for this event, but on my presentation to the bed side he is 108/81 O2 sat was 60% on RA, pulse 124 and now with oxygen he went to 87% and then facemask is over 90% sat Pulse 90-110 He is a morbidly obese, unresponsive white male even to sternal rub, spontaneous respirations at 20, snoring thick neck, short statured at 5'3", 117 kg snoring, unlabored respirations clear lungs but he does guppy breath at times Tachy at 114 with RRR large protuberant obese belly panus soft abd wall, hypoactive bowel sounds, bc unresponsive difficult to say if has pain legs with firm musculature of thighs, calves, no edema, no redness, and no indication of DVT (on heparin 5000 units SQ bid) put on BiPAP and O2 sats stabilized 1 amp of narcan and no response Laboratory Last Values WBC 20.5 x10^3/uL (4.8-10.8) H 01/07/18 05:45 RBC 4.85 10^6/uL (4.70-6.10) 01/07/18 05:45 Hgb 13.1 g/dL (14.0-18.0) L 01/07/18 05:45 Hct 42.4 % (42.0-52.0) 01/07/18 05:45 MCV 87.3 fL (80.0-94.0) 01/07/18 05:45 MCH 27.0 pg (27.0-31.0) 01/07/18 05:45 MCHC 31.0 g/dL (32.0-36.0) L 01/07/18 05:45 RDW 15.8 % (12.0-15.0) H 01/07/18 05:45 Plt Count 297 10^3/uL (130-450) 01/07/18 05:45 MPV 7.9 fL (7.4-11.4) 01/07/18 05:45 Neut # (Auto) 7.1 10^3/uL (1.5-6.6) H 01/05/18 21:46 Lymph # (Auto) 1.0 10^3/uL (1.5-3.5) L 01/05/18 21:46 [place] # (Auto) 0.5 10^3/uL (0.0-1.0) 01/05/18 21:46 Eos # (Auto) 0.0 10^3/uL (0.0-0.7) 01/05/18 21:46 Baso # (Auto) 0.1 10^3/uL (0.0-0.1) 01/05/18 21:46 Absolute Nucleated RBC 0.00 x10^3/uL 01/05/18 21:46 Nucleated RBC % 0.0 /100WBC 01/05/18 21:46 Bld Gas Analysis Time 0605 01/07/18 06:05 Sample Site RIGHT RADIAL 01/07/18 06:05 ABG pH 6.86 (7.35-7.45) L* 01/07/18 06:05 ABG pCO2 178 mmHg (34-45) H* 01/07/18 06:05 ABG pO2 55 mmHg (80-100) L* 01/07/18 06:05 ABG HCO3 31.2 mmol/L (22.0-26.0) H 01/07/18 06:05 ABG Total CO2 36.7 MMOL/L (21.0-29.0) H 01/07/18 06:05 ABG O2 Saturation 80 % (94-98) L* 01/07/18 06:05 ABG Base Excess -6.8 mmol/L (-2.0-3.0) L 01/07/18 06:05 Yao Test POSITIVE 01/07/18 06:05 O2 Delivery Device BiPAP 01/07/18 06:05 Vent Mode SYNCHRONOUS/TIMES 01/07/18 06:05 FiO2 50.00 01/07/18 06:05 EPAP 5 cmH2O 01/07/18 06:05 IPAP 10 cmH2O 01/07/18 06:05 Sodium 134 mmol/L (135-145) L 01/07/18 05:45 Potassium 5.3 mmol/L (3.5-5.0) H 01/07/18 05:45 Chloride 96 mmol/L (101-111) L 01/07/18 05:45 Carbon Dioxide 31 mmol/L (21-32) 01/07/18 05:45 Anion Gap 7.0 (6-13) 01/07/18 05:45 BUN 18 mg/dL (6-20) 01/07/18 05:45 Creatinine 1.9 mg/dL (0.6-1.2) H 01/07/18 05:45 Estimated GFR (MDRD) 39 (>89) L 01/07/18 05:45 Glucose 407 mg/dL (70-100) H 01/07/18 05:45 Lactic Acid 3.0 mmol/L (0.5-2.2) H* 01/07/18 05:45 Calcium 7.5 mg/dL (8.5-10.3) L 01/07/18 05:45 Total Bilirubin 0.7 mg/dL (0.2-1.0) 01/05/18 21:46 AST 29 IU/L (10-42) 01/05/18 21:46 ALT 27 IU/L (10-60) 01/05/18 21:46 Alkaline Phosphatase 68 IU/L (42-121) 01/05/18 21:46 Ammonia 96.5 umol/L (7-35) H* 01/07/18 05:45 Total Protein 7.5 g/dL (6.7-8.2) 01/05/18 21:46 Albumin 3.8 g/dL (3.2-5.5) 01/05/18 21:46 Globulin 3.7 g/dL (2.1-4.2) 01/05/18 21:46 Albumin/Globulin Ratio 1.0 (1.0-2.2) 01/05/18 21:46 Lipase 26 U/L (22-51) 01/05/18 21:46 Urine Color YELLOW 01/05/18 23:00 Urine Clarity CLEAR (CLEAR) 01/05/18 23:00 Urine pH 7.0 PH (5.0-7.5) 01/05/18 23:00 Ur Specific [place] 1.015 (1.002-1.030) 01/05/18 23:00 Urine Protein NEGATIVE mg/dL (NEGATIVE) 01/05/18 23:00 Urine Glucose (UA) NEGATIVE mg/dL (NEGATIVE) 01/05/18 23:00 Urine Ketones TRACE mg/dL (NEGATIVE) 01/05/18 23:00 Urine Occult Blood NEGATIVE (NEGATIVE) 01/05/18 23: Urine Nitrite NEGATIVE (NEGATIVE) 01/05/18 23: Urine Bilirubin NEGATIVE (NEGATIVE) 01/05/18: Urine Urobilinogen 0.2 (NORMAL) E.U./dL (NORMAL) 01/05/18 23: Ur Leukocyte Esterase NEGATIVE (NEGATIVE) 01/05/18 23: Ur Microscopic Review NOT INDICATED 01/05/18: Urine Culture Comments NOT INDICATED 01/05/18: Assessment/plan Differential diagnosis in the gentleman includes: 1. obstructive sleep apnea with now acute respiratory failure and hypercapnia and hypoxia, #2 pulmonary embolus, #3 sepsis in a patient with diverticulitis 4. Unexpected hepatic encephalopathy 5. Cardiac event but no evidence of bradycardia 6. Cerebrovascular event but no focal lateralizing signs, has spontaneous respiration Workup will include the already done ABGs, stat labs, lactic acid, chest x-ray. 06:10 Lab workup shows acute respiratory failure with hypercapnia and hypoxia and blood gas as well as a metabolic acidosis. His ammonia level is elevated at 96.5. His states that he does not drink. Lactic acid ordered. Review of the CT of the abdomen shows a normal liver without masses. Anesthesia has been called for semi-urgent intubation. Chest x-ray will be delayed until after intubation. 07: 10 Anesthesia is now here to assess the patient. He was initially hypotensive at 60 systolic and I was giving him a fluid bolus. Anesthesia was assessing the patient for intubation and possible central line at my request. The patient suddenly woke up. He is startled. He is still confused and blood pressure is now climbing to 130s systolic. Pulse was initially 115 and is now 90. He is requiring 3 people at the bedside to reassure him and calm him down including his . As such I will cancel central line request and intubation request continue to treat the patient with another amp of Narcan, and continue to reassess.
[2018-01-07] MEDS ORDERED: SODIUM CHLORIDE FLUSH 0.9% 10 ML SYRINGE IVP PRN ×2 (06:14→20:06)
[2018-01-07] MEDS: PIPERACILLIN/TAZOBACTAM 3.375 GM in SODIUM CHLORIDE 0.9% MINIBAG 100 ML IV SCH ×3 (06:21→19:15)
[2018-01-07] MEDS: DEXTROSE 5%-0.9% NACL 1,000 ML IV SCH (06:21)
[2018-01-07 06:22] LABS: ABG BASE EXCESS -6.8 mmol/L (-2.0-3.0); ABG HCO3 31.2 mmol/L (22.0-26.0); ABG TCO2 36.7 MMOL/L (21.0-29.0); ALLEN TEST POSITIVE
[2018-01-07 06:26] LABS: ABG OXYGEN SATURATION 80 % (94-98); ABG PCO2 178 mmHg (34-45); ABG PH 6.86 (7.35-7.45); ABG PO2 55 mmHg (80-100)
[2018-01-07 06:44] LABS: MAGNESIUM 2.6 mg/dL (1.7-2.8); PHOSPHORUS 8.4 mg/dL (2.5-4.6)
[2018-01-07] MEDS ORDERED: SODIUM CHLORIDE 0.9% 500 ML IV ONE (06:46)
[2018-01-07] MEDS: PANTOPRAZOLE 40 MG VIAL IVP SCH (06:54)
[2018-01-07] MEDS: SODIUM CHLORIDE 0.9% 1,000 ML IV SCH ×3 (07:00→20:05)
[2018-01-07] MEDS ORDERED: NALOXONE 0.4 MG/ML VIAL IVP SCH (07:34)
[2018-01-07 08:11] LABS: ABG HCO3 20.8 mmol/L (22.0-26.0); ABG PCO2 47 mmHg (34-45); ABG PH 7.27 (7.35-7.45); ABG PO2 66 mmHg (80-100); ABG TCO2 22.3 MMOL/L (21.0-29.0)
[2018-01-07 08:12] LABS: ABG BASE EXCESS -6.1 mmol/L (-2.0-3.0); ABG OXYGEN SATURATION 94 % (94-98); ALLEN TEST POSITIVE
--- NOTE | 2018-01-07 09:34 | PROVIDER PROGRESS NOTE ---
Subjective - Prog Note Date Prog Note Date: 01/07/18 Prog Note Time: 09:31 - Subjective Pt reports feeling: Worse (42 yo man admitted yesterday for diverticulitis with a microperforation. Initially completely stable, he decompensated early this morning and is now minimally communicative on Bipap.) Objective - Vital Signs/Intake & Output Vital Signs: Vital Signs x48h Temp Pulse Pulse Resp BP BP Pulse Ox 01/07/18 09:00 104 H 19 90/72 100 01/07/18 08:00 36.9 C 103 H 24 87/51 L 01/07/18 07:41 112 H 25 H 108/74 100 01/07/18 07:31 109 H 01/07/18 07:25 105 H 19 124/103 H 96 01/07/18 07:08 109 H 22 158/139 H 99 01/07/18 06:15 36.9 C 120 H 19 139/80 H 100 01/07/18 06:00 36.9 C 104 H 17 139/88 H 96 01/07/18 05:55 104 H 01/07/18 05:35 124 H 108/81 H 60 L Intake & Output: Intake & Output 01/04/18 01/05/18 01/06/18 01/07/18 23:59 23:59 23:59 23:59 Intake Total 1100 5630 1520.000 Output Total 0 Balance 1100 5630 1520.000 - Objective General Appearance: positive: Moderate distress Eyes Bilateral: positive: Normal inspection ENT: positive: ENT inspection nml Neck: positive: Nml inspection Respiratory: positive: Other (Bipap) Abdomen: positive: Guarding Back: positive: Nml inspection Skin: positive: Color nml Extremities: positive: Non-tender Neurologic/Psychiatric: positive: Oriented x3 - Lab Results Fish Bones: 01/07/18 05:45 01/07/18 05:45 Other Labs: Lab Results x24hrs 01/07/18 01/07/18 01/07/18 Range/Units 08:02 06:47 06:05 WBC (4.8-10.8) x10^3/uL RBC (4.70-6.10) 10^6/uL Hgb (14.0-18.0) g/dL Hct (42.0-52.0) % MCV (80.0-94.0) fL MCH (27.0-31.0) pg MCHC (32.0-36.0) g/dL RDW (12.0-15.0) % Plt Count (130-450) 10^3/uL MPV (7.4-11.4) fL Bld Gas Analysis Time 0802 0605 Sample Site RIGHT RADIAL RIGHT RADIAL ABG pH 7.27 L 6.86 L* (7.35-7.45) ABG pCO2 47 H 178 H* (34-45) mmHg ABG pO2 66 L 55 L* (80-100) mmHg ABG HCO3 20.8 L 31.2 H (22.0-26.0) mmol/L ABG Total CO2 22.3 36.7 H (21.0-29.0) MMOL/L ABG O2 Saturation 94 80 L* (94-98) % ABG Base Excess -6.1 L -6.8 L (-2.0-3.0) mmol/L Yao Test POSITIVE POSITIVE O2 Delivery Device BiPAP BiPAP Vent Mode SYNCHRONOUS/TIMES FiO2 80.00 50.00 EPAP 5 5 cmH2O IPAP 12 10 cmH2O Sodium (135-145) mmol/L Potassium (3.5-5.0) mmol/L Chloride (101-111) mmol/L Carbon Dioxide (21-32) mmol/L Anion Gap (6-13) BUN (6-20) mg/dL Creatinine (0.6-1.2) mg/dL Estimated GFR (MDRD) (>89) Glucose (70-100) mg/dL POC Whole Bld Glucose 354 H (70 - 100) mg/dL Lactic Acid (0.5-2.2) mmol/L Calcium (8.5-10.3) mg/dL Phosphorus (2.5-4.6) mg/dL Magnesium (1.7-2.8) mg/dL Ammonia (7-35) umol/L 01/07/18 01/07/18 01/07/18 Range/Units 05:45 05:45 05:45 WBC (4.8-10.8) x10^3/uL RBC (4.70-6.10) 10^6/uL Hgb (14.0-18.0) g/dL Hct (42.0-52.0) % MCV (80.0-94.0) fL MCH (27.0-31.0) pg MCHC (32.0-36.0) g/dL RDW (12.0-15.0) % Plt Count (130-450) 10^3/uL MPV (7.4-11.4) fL Bld Gas Analysis Time Sample Site ABG pH (7.35-7.45) ABG pCO2 (34-45) mmHg ABG pO2 (80-100) mmHg ABG HCO3 (22.0-26.0) mmol/L ABG Total CO2 (21.0-29.0) MMOL/L ABG O2 Saturation (94-98) % ABG Base Excess (-2.0-3.0) mmol/L Yao Test O2 Delivery Device Vent Mode FiO2 EPAP cmH2O IPAP cmH2O Sodium (135-145) mmol/L Potassium (3.5-5.0) mmol/L Chloride (101-111) mmol/L Carbon Dioxide (21-32) mmol/L Anion Gap (6-13) BUN (6-20) mg/dL Creatinine (0.6-1.2) mg/dL Estimated GFR (MDRD) (>89) Glucose (70-100) mg/dL POC Whole Bld Glucose (70 - 100) mg/dL Lactic Acid 3.0 H* (0.5-2.2) mmol/L Calcium (8.5-10.3) mg/dL Phosphorus 8.4 H (2.5-4.6) mg/dL Magnesium 2.6 (1.7-2.8) mg/dL Ammonia 96.5 H* (7-35) umol/L 01/07/18 01/07/18 Range/Units 05:45 05:45 WBC 20.5 H (4.8-10.8) x10^3/uL RBC 4.85 (4.70-6.10) 10^6/uL Hgb 13.1 L (14.0-18.0) g/dL Hct 42.4 (42.0-52.0) % MCV 87.3 (80.0-94.0) fL MCH 27.0 (27.0-31.0) pg MCHC 31.0 L (32.0-36.0) g/dL RDW 15.8 H (12.0-15.0) % Plt Count 297 (130-450) 10^3/uL MPV 7.9 (7.4-11.4) fL Bld Gas Analysis Time Sample Site ABG pH (7.35-7.45) ABG pCO2 (34-45) mmHg ABG pO2 (80-100) mmHg ABG HCO3 (22.0-26.0) mmol/L ABG Total CO2 (21.0-29.0) MMOL/L ABG O2 Saturation (94-98) % ABG Base Excess (-2.0-3.0) mmol/L Yao Test O2 Delivery Device Vent Mode FiO2 EPAP cmH2O IPAP cmH2O Sodium 134 L (135-145) mmol/L Potassium 5.3 H (3.5-5.0) mmol/L Chloride 96 L (101-111) mmol/L Carbon Dioxide 31 (21-32) mmol/L Anion Gap 7.0 (6-13) BUN 18 (6-20) mg/dL Creatinine 1.9 H (0.6-1.2) mg/dL Estimated GFR (MDRD) 39 L (>89) Glucose 407 H (70-100) mg/dL POC Whole Bld Glucose (70 - 100) mg/dL Lactic Acid (0.5-2.2) mmol/L Calcium 7.5 L (8.5-10.3) mg/dL Phosphorus (2.5-4.6) mg/dL Magnesium (1.7-2.8) mg/dL Ammonia (7-35) umol/L Assessment/Plan - Problem List (1) Abdominal pain Impression: Pt showing signs of sepsis with an increasing WBC, hypotension and rising Cr. Some of this may be explained by a sedative overdose, but not all of it and he is very TTP with guarding in the LLQ. He is becoming very ill. I explained all of this to the pt's and although the pt expressed a strong desire to avoid surgery yesterday, she agrees there is no choice now. It must be assumed that his disease has worsened with possibly a larger perforation. We will take him to surgery [id number] with a planned sigmoidectomy and colostomy. She understands and agrees. Qualifiers: Abdominal location: generalized
--- NOTE | 2018-01-07 09:42 | ANESTHESIA ---
Pre-Anesthesia VS, & Labs - Diagnosis Diagnosis Diverticulitis - Procedure Colectomy possible colostomy Vital Signs: Temp Pulse Resp BP Pulse Ox 36.9 C 104 H 19 90/72 100 01/07/18 08:00 01/07/18 09:00 01/07/18 09:00 01/07/18 09:00 01/07/18 09:00 Height 5 ft 3 in Weight (kg) 117 kg Body Mass Index 45.6 - NPO >8 hours - Lab Results Current Lab Results: Laboratory Tests 01/07/18 08:02: Bld Gas Analysis Time 0802, Sample Site RIGHT RADIAL, ABG pH 7.27 L, ABG pCO2 47 H, ABG pO2 66 L, ABG HCO3 20.8 L, ABG Total CO2 22.3, ABG O2 Saturation 94, ABG Base Excess -6.1 L, Yoa Test POSITIVE, O2 Delivery Device BiPAP, FiO2 80.00, EPAP 5, IPAP 12 01/07/18 06:47: POC Whole Bld Glucose 354 H 01/07/18 06:05: Bld Gas Analysis Time 0605, Sample Site RIGHT RADIAL, ABG pH 6.86 L*, ABG pCO2 178 H*, ABG pO2 55 L*, ABG HCO3 31.2 H, ABG Total CO2 36.7 H, ABG O2 Saturation 80 L*, ABG Base Excess -6.8 L, Yao Test POSITIVE, O2 Delivery Device BiPAP, Vent Mode SYNCHRONOUS/TIMES, FiO2 50.00, EPAP 5, IPAP 10 01/07/18 05:45: Phosphorus 8.4 H, Magnesium 2.6 01/07/18 05:45: Ammonia 96.5 H* 01/07/18 05:45: Lactic Acid 3.0 H* 01/07/18 05:45: Sodium 134 L, Potassium 5.3 H, Chloride 96 L, Carbon Dioxide 31, Anion Gap 7.0, BUN 18, Creatinine 1.9 H, Estimated GFR (MDRD) 39 L, Glucose 407 H, Calcium 7.5 L 01/07/18 05:45: WBC 20.5 H, RBC 4.85, Hgb 13.1 L, Hct 42.4, MCV 87.3, MCH 27.0, MCHC 31.0 L, RDW 15.8 H, Plt Count 297, MPV 7.9 01/06/18 08:16: Lactic Acid 0.7 01/06/18 05:21: Sodium 130 L, Potassium 3.6, Chloride 100 L, Carbon Dioxide 25, Anion Gap 5.0 L, BUN 11, Creatinine 1.0, Estimated GFR (MDRD) 81 L, Glucose 135 H, Calcium 7.7 L 01/06/18 05:21: WBC 12.3 H, RBC 4.88, Hgb 13.1 L, Hct 40.0 L, MCV 81.9, MCH 26.9 L, MCHC 32.9, RDW 15.1 H, Plt Count 158, MPV 8.3 01/05/18 21:46: Lactic Acid 1.4 01/05/18 21:46: Sodium 133 L, Potassium 4.0, Chloride 98 L, Carbon Dioxide 27, Anion Gap 8.0, BUN 12, Creatinine 1.1, Estimated GFR (MDRD) 73 L, Glucose 121 H, Calcium 8.8, Total Bilirubin 0.7, AST 29, ALT 27, Alkaline Phosphatase 68, Total Protein 7.5, Albumin 3.8, Globulin 3.7, Albumin/Globulin Ratio 1.0, Lipase 26 01/05/18 21:46: WBC 8.7, RBC 5.23, Hgb 14.3, Hct 42.3, MCV 80.9, MCH 27.4, MCHC 33.9, RDW 15.1 H, Plt Count 171, MPV 8.1, Neut # (Auto) 7.1 H, Lymph # (Auto) 1.0 L, [place] # (Auto) 0.5, Eos # (Auto) 0.0, Baso # (Auto) 0.1, Absolute Nucleated RBC 0.00, Nucleated RBC % 0.0 Lab results reviewed: Yes Fish Bones: 01/07/18 05:45 01/07/18 05:45 Home Medications and Allergies Home Medications: Ambulatory Orders Albuterol Sulf [Ventolin Hfa Inhaler] 1 - 2 puffs INH Q4HR PRN 01/06/18 Citalopram Hydrobromide [Citalopram HBr] 20 mg PO DAILY 01/06/18 Naproxen Sodium [Aleve] 220 mg PO DAILY PRN 01/06/18 lamoTRIgine [LaMICtal] 100 mg PO BID 01/06/18 Active Medications Acetaminophen (Tylenol) 650 mg PO Q4HR PRN PRN Reason: Pain or Fever > 38C (100.4F) Albuterol () 2.5 mg INH RTQ4H PRN PRN Reason: Wheezing Citalopram Hydrobromide (Celexa) 20 mg PO DAILY [facility] Last Admin: 01/06/18 09:06 Dose: 20 mg Heparin Sodium (Porcine) () 5,000 unit SUBQ BID [facility] Last Admin: 01/06/18 20:27 Dose: 5,000 unit Hydromorphone HCl (Dilaudid (Vial)) 3 mg IVP Q3H PRN PRN Reason: PAIN Last Admin: 01/06/18 23:47 Dose: 3 mg Piperacillin Sod/Tazobactam (Sod 3.375 gm/ Sodium Chloride) 100 mls @ 200 mls/hr IV Q6HR [facility] Stop: 01/11/18 00:00 Last Infusion: 01/07/18 06:51 Dose: Infused Sodium Chloride (Normal Saline 0.9%) 1,000 mls @ 100 mls/hr IV .Q10H [facility] Last Infusion: 01/07/18 08:00 Dose: 100 mls/hr Insulin Human Regular (Novolin R) 1 - 5 unit SUBQ Q6HR [facility]; Protocol Lisinopril (Zestril) 20 mg PO DAILY [facility] Last Admin: 01/06/18 09:07 Dose: 20 mg Lorazepam (Ativan Inj (Vial)) 1 mg IVP QPM PRN PRN Reason: Anxiety Metoprolol Tartrate (Lopressor Inj) 5 mg IVP Q2HR PRN PRN Reason: hyperten Ondansetron HCl (Zofran Inj) 4 mg IVP Q4HR PRN PRN Reason: Nausea / Vomiting Pantoprazole Sodium (Protonix) 40 mg IVP QDAC [facility] Last Admin: 01/07/18 06:54 Dose: 40 mg (Dextroamphetamine/Amphetamine [ Adderall 30 Mg Tablet] 30 Mg) 1 each PO BID [facility] Patient Own Med [ Lamotrigine 100mg Tab] 1 each PO BID [facility] Last Admin: 01/06/18 20:35 Dose: Not Given Polyethylene Glycol (Miralax) 17 gm PO DAILY [facility] Last Admin: 01/06/18 09:06 Dose: 17 gm Sodium Chloride (Normal Saline Flush 0.9%) 10 ml IVP 0100,0900,1700 JENNIFER Sodium Chloride (Normal Saline Flush 0.9%) 10 ml IVP PRN PRN PRN Reason: NEEDED PER PROVIDER ORDERS Zolpidem Tartrate (Ambien) 5 mg PO QPM PRN PRN Reason: Insomnia Albuterol Sulf [Ventolin Hfa Inhaler] 1 - 2 puffs INH Q4HR PRN 01/06/18 Citalopram Hydrobromide [Citalopram HBr] 20 mg PO DAILY 01/06/18 Naproxen Sodium [Aleve] 220 mg PO DAILY PRN 01/06/18 lamoTRIgine [LaMICtal] 100 mg PO BID 01/06/18 Allergies/Adverse Reactions: Allergies Allergy/AdvReac Type Severity Reaction Status Date / Time hydrocodone bitartrate * Allergy Intermediate Hallucinati Verified 10/02/14 16:07 [From Vicodin] ons Anes History & Medical History - Anesthetic History Anesthesia Complications: reports: No previous complications - Medical History Cardiovascular: reports: Hypertension Pulmonary: reports: Asthma (uses rescue inhalor), Sleep apnea (Does not use cpap) Gastrointestinal: reports: None Urinary: reports: Kidney stones Neuro: reports: None, Other (PTSD) Musculoskeletal: reports: Chronic back pain Endocrine/Autoimmune: reports: Type 2 diabetes Blood Disorders: reports: None Skin: reports: None Smoking Status: Former smoker (Quit 4 years ago) Psychosocial: reports: Other (PTSD) - Surgical History Urologic: Testicular surgery Other Past Surgical History: Orchiectomy as a child Exam General: Moderate distress (Obtunded, on BiPAP) Dental: Dentures full Upper, Dentures full Lower Respiratory: Other (Coarse, on BiPap) Cardiovascular: Regular rate, Normal S1, Normal S2, No murmurs Mental/Cognitive Status: Lethargic Cognitive Status: Other (describe below) (Obtunded, on CPAP. Full assessment defered.) Plan Anesthesia Type: General, Transverse Abdominis Plane (TAP) Block (Possible TAP block for post op pain), Other (Possible post op vent, A-line, central line) Consent for Procedure(s) Verified and Reviewed: Yes Code Status: Attempt Resuscitation ASA classification: 4-Incapacitating disease Is this case an emergency?: Yes
--- NOTE | 2018-01-07 09:44 | XRAY Report ---
Reason: ox sat 40%, obtundation Procedure Date: 01/07/2018 Accession Number: [id number] / [id number] Procedure: XR - Abdomen 1 View X-Ray CPT Code: 57589 FULL RESULT: EXAM: ABDOMEN RADIOGRAPHY EXAM DATE: 01/07/2018 09:24 AM. CLINICAL HISTORY: Ox sat 40%, obtundation. COMPARISON: CT 11 1218 TECHNIQUE: 1 view. FINDINGS: Bowel Gas Pattern: Within normal limits. No dilated loops. Other: Negative bony structures. IMPRESSION: Nonspecific 1-view abdomen x-ray. [facility]
[2018-01-07 09:50] LABS: HB2 TOTAL 14.5 g/dL; HEMOGLOBIN A1C 0.58 g/dL; HEMOGLOBIN A1C % 5.8 % (4.6-6.2)
[2018-01-07] MEDS: LISINOPRIL 20 MG TABLET PO SCH (11:00)
[2018-01-07] MEDS: HEPARIN 5,000 UNIT/ML VIAL SUBQ SCH (11:00)
[2018-01-07] MEDS: CITALOPRAM 10 MG TABLET PO SCH (11:00)
[2018-01-07] MEDS: DEXTROAMPHETAMINE PO SCH ×2 (11:01→21:02)
[2018-01-07] MEDS: LAMOTRIGINE 100 MG PO SCH ×2 (11:01→21:02)
[2018-01-07] MEDS: POLYETHYLENE GLYCOL 3350 17 GM PACKET PO SCH (11:01)
[2018-01-07] MEDS: AMPHETAMINE PO SCH ×2 (11:01→21:02)
[2018-01-07] MEDS ORDERED: LACTATED RINGERS 1,000 ML IV ONE ×4 (11:21→13:45)
--- NOTE | 2018-01-07 11:27 | PROVIDER PROGRESS NOTE ---
Assessment/Plan - Problem List (1) Acute respiratory failure with hypercapnia Assessment/Plan: Patient became unresponsive this morning. ABG showed pH of 6.86 with pCO2 of 178 This was likely combination of DOMENICA, OHS in setting of over medications with opiates causing respiratory depression Patient placed on BiPAP and given narcan x2 doses This am patients ABG shows pH of 7.27 and PCO2 of 47 much improved Patient still very lethargic Continue BiPAP (2) Severe Sepsis Assessment/Plan: Fever 38.8 yesterday. This am WBC increased to 20.5 with elevated lactic acid of 3.0, tachycardia, hypotension, decreased mentation and acute renal failure. Sepsis appears to be secondary to acute diverticulitis with perforation IVFs Continue IV zosyn Consider pressors if patient continues to be hypotensive Surgery called and will take patient to OR this afternoon (3) Acute diverticulitis Assessment/Plan: Patient now has severe sepsis Worsening pain, clinically worse with increased WBC and elevated lactic acid Patient continued on IV zosyn but not responding will go to the OR today (4) Perforated diverticulum of large intestine Conclusion/Plan: As discussed above, microperforation which can be treated medically. Surgery has been consulted and will take patient to OR this afternoon. We will continue IV Zosyn. (5) Acute Kidney Injury Conclusion/Plan: Patients pharmacy delivery driver increased from 1.0 to 1.9 this am Likely secondary to sepsis could be ATN vs pre renal Give IVFs Treat sepsis with IV abx Avoid nephrotoxic agents If not improving consider changing zosyn to other abx Monitor pharmacy delivery driver (6) Hypertension Conclusion/Plan: Patient hypotensive this am possibly secondary to over medication with opiates or secondary to sepsis Hold antihypertensives Monitor BP closely Give IVFs and consider pressors (7) Hyperglycemia Conclusion/Plan: BG elevated to 400 this am Likely stress response secondary to sepsis and infection A1C is 5.[address] on NPO SS insulin for now Monitor BG (8) Depression Conclusion/Plan: We will resume the patient's home citalopram and lamotrigine once patient is more alert and awake Stable Qualifiers: Depression Type: major depressive disorder Major depression recurrence: single episode Active/Remission status: currently active Psychotic features: without psychotic features (9) Anxiety Conclusion/Plan: We will provide as needed Ativan at night. - Current Meds Current Meds: Current Medications Generic Name Dose Route Start Last Admin Trade Name Freq PRN Reason Stop Dose Admin Citalopram Hydrobromide 20 mg 01/06/18 09:00 01/07/18 11:00 Celexa PO Not Given DAILY JENNIFER Heparin Sodium (Porcine) 5,000 unit 01/06/18 09:00 01/07/18 11:00 SUBQ Not Given BID JENNIFER Hydromorphone HCl 3 mg 01/06/18 06:57 01/06/18 23:47 Dilaudid (Vial) IVP 3 mg Q3H PRN Administration PAIN Piperacillin Sod/Tazobactam 100 mls @ 200 mls/hr 01/06/18 00:00 01/07/18 06:51 Sod 3.375 gm/ Sodium Chloride IV 01/11/18 00:00 Infused Q6HR JENNIFER Infusion Sodium Chloride 1,000 mls @ 100 mls/hr 01/07/18 07:00 01/07/18 10:25 Normal Saline 0.9% IV 0 mls/hr .Q10H JENNIFER Infusion Lisinopril 20 mg 01/06/18 09:00 01/07/18 11:00 Zestril PO Not Given DAILY JENNIFER Pantoprazole Sodium 40 mg 01/06/18 07:00 01/07/18 06:54 Protonix IVP 40 mg QDAC JENNIFER Administration (Dextroamphetamine/ 1 each 01/07/18 09:00 01/07/18 11:01 Amphetamine [ PO Not Given Adderall 30 Mg BID JENNIFER Tablet] 30 Mg) Patient Own Med [ 1 each 01/06/18 21:00 01/07/18 11:01 Lamotrigine 100mg PO Not Given Tab] BID JENNIFER Polyethylene Glycol 17 gm 01/06/18 09:00 01/07/18 11:01 Miralax PO Not Given DAILY JENNIFER Sodium Chloride 10 ml 01/07/18 09:00 01/07/18 09:00 Normal Saline Flush 0.9% IVP 10 ml 0100,0900,1700 JENNIFER Administration - Lab Result Fish Bone Diagrams: 01/07/18 05:45 01/07/18 05:45 - Diagnostic Imaging Results Diagnostic Imaging Results: Final report reviewed - Additional Planning Condition/Complexity: Critical My Orders: My Active Orders 01/07/18 09:00 Blood Glucose POC [RC] 0800,1200,1700,2100 Initiate Hypoglycemia Protocol [RC] .protocol 01/07/18 11:12 Restraints Safety Checks [RC] Q5MIN Restraints [RC] Q24H 01/07/18 12:00 Insulin Regular Human [NovoLIN R] 1 - 5 unit SUBQ Q6HR Consult/Specialty: Surgery Plan Discussed with:: Patient, Spouse Time Spent: Greater than 60 minutes Subjective - Subjective Patient Reports: Other (Very lethargic, barely arousable. On BiPAP. Not following commands. Has left arm guarding left lower quadrant.) Nursing Reports: No Complaints Objective Vital Signs: Vital Signs - 24 hr 01/06/18 01/06/18 01/06/18 15:32 16:00 16:35 Temperature 37.5 C Heart Rate Heart Rate [ 108 H Brachial] Respiratory 18 Rate Blood Pressure [Left Brachial artery] Blood Pressure 144/73 H [Right Brachial artery] O2 Saturation 90 L 80 L 79 L 01/06/18 01/06/18 01/06/18 17:57 22:22 23:40 Temperature 37.5 C 36.8 C Heart Rate 108 H Heart Rate [ 116 H Brachial] Respiratory 18 20 Rate Blood Pressure [Left Brachial artery] Blood Pressure 146/65 H [Right Brachial artery] O2 Saturation 92 92 92 01/07/18 01/07/18 01/07/18 05:35 05:55 06:00 Temperature 36.9 C Heart Rate 104 H Heart Rate [ 124 H 104 H Brachial] Respiratory 17 Rate Blood Pressure 139/88 H [Left Brachial artery] Blood Pressure 108/81 H [Right Brachial artery] O2 Saturation 60 L 96 01/07/18 01/07/18 01/07/18 06:15 07:08 07:25 Temperature 36.9 C Heart Rate Heart Rate [ 120 H 109 H 105 H Brachial] Respiratory 19 22 19 Rate Blood Pressure 139/80 H 158/139 H 124/103 H [Left Brachial artery] Blood Pressure [Right Brachial artery] O2 Saturation 100 99 96 01/07/18 01/07/18 01/07/18 07:31 07:41 08:00 Temperature 36.9 C Heart Rate 109 H Heart Rate [ 112 H 103 H Brachial] Respiratory 25 H 24 Rate Blood Pressure 108/74 87/51 L [Left Brachial artery] Blood Pressure [Right Brachial artery] O2 Saturation 100 01/07/18 01/07/18 01/07/18 09:00 09:39 10:00 Temperature Heart Rate 103 H Heart Rate [ 104 H 105 H Brachial] Respiratory 19 21 Rate Blood Pressure 90/72 88/62 L [Left Brachial artery] Blood Pressure [Right Brachial artery] O2 Saturation 100 100 Oxygen O2 Source BIPAP I&O (Last 24 Hrs): Intake and Output Totals x24h 01/05/18 01/06/18 01/07/18 23:59 23:59 23:59 Intake Total 1100 5630 1761.667 Output Total 0 Balance 1100 5630 1761.667 General: Moderate distress (on BipAP), Other (Lethargic, difficult to arouse. S edated. On BiPAP) HEENT: Atraumatic, PERRLA, EOMI, Other (Dry mucus membranes) Neck: Supple, No JVD, No thyromegaly, +2 carotid pulse wo bruit, No LAD Lymphatic: no adenopathy Neuro: Non Focal, CN 2-12 Grossly Intact, Other (Lethargic) Cardiovascular: No murmurs, Other (Tachycardic) Respiratory: Chest non-tender, No respiratory distress, Other (Diminished breath sounds bilaterally) Abdomen: Normal bowel sounds, Soft, Other (Very tender in the left lower quadrant) Extremities: No clubbing, No cyanosis, No edema, Normal pulses, No tenderness/swelling Skin: No rashes, No breakdown - Results Results: Laboratory Results WBC 20.5 x10^3/uL (4.8-10.8) H 01/07/18 05:45 RBC 4.85 10^6/uL (4.70-6.10) 01/07/18 05:45 Hgb 13.1 g/dL (14.0-18.0) L 01/07/18 05:45 Hct 42.4 % (42.0-52.0) 01/07/18 05:45 MCV 87.3 fL (80.0-94.0) 01/07/18 05:45 MCH 27.0 pg (27.0-31.0) 01/07/18 05:45 MCHC 31.0 g/dL (32.0-36.0) L 01/07/18 05:45 RDW 15.8 % (12.0-15.0) H 01/07/18 05:45 Plt Count 297 10^3/uL (130-450) 01/07/18 05:45 MPV 7.9 fL (7.4-11.4) 01/07/18 05:45 Neut # (Auto) 7.1 10^3/uL (1.5-6.6) H 01/05/18 21:46 Lymph # (Auto) 1.0 10^3/uL (1.5-3.5) L 01/05/18 21:46 [place] # (Auto) 0.5 10^3/uL (0.0-1.0) 01/05/18 21:46 Eos # (Auto) 0.0 10^3/uL (0.0-0.7) 01/05/18 21:46 Baso # (Auto) 0.1 10^3/uL (0.0-0.1) 01/05/18 21:46 Absolute Nucleated RBC 0.00 x10^3/uL 01/05/18 21:46 Nucleated RBC % 0.0 /100WBC 01/05/18 21:46 Bld Gas Analysis Time 0802 01/07/18 08:02 Sample Site RIGHT RADIAL 01/07/18 08:02 ABG pH 7.27 (7.35-7.45) L 01/07/18 08:02 ABG pCO2 47 mmHg (34-45) H 01/07/18 08:02 ABG pO2 66 mmHg (80-100) L 01/07/18 08:02 ABG HCO3 20.8 mmol/L (22.0-26.0) L 01/07/18 08:02 ABG Total CO2 22.3 MMOL/L (21.0-29.0) 01/07/18 08:02 ABG O2 Saturation 94 % (94-98) 01/07/18 08:02 ABG Base Excess -6.1 mmol/L (-2.0-3.0) L 01/07/18 08:02 Yao Test POSITIVE 01/07/18 08:02 O2 Delivery Device BiPAP 01/07/18 08:02 Vent Mode SYNCHRONOUS/TIMES 01/07/18 06:05 FiO2 80.00 01/07/18 08:02 EPAP 5 cmH2O 01/07/18 08:02 IPAP 12 cmH2O 01/07/18 08:02 Sodium 134 mmol/L (135-145) L 01/07/18 05:45 Potassium 5.3 mmol/L (3.5-5.0) H 01/07/18 05:45 Chloride 96 mmol/L (101-111) L 01/07/18 05:45 Carbon Dioxide 31 mmol/L (21-32) 01/07/18 05:45 Anion Gap 7.0 (6-13) 01/07/18 05:45 BUN 18 mg/dL (6-20) 01/07/18 05:45 Creatinine 1.9 mg/dL (0.6-1.2) H 01/07/18 05:45 Estimated GFR (MDRD) 39 (>89) L 01/07/18 05:45 Glucose 407 mg/dL (70-100) H 01/07/18 05:45 POC Whole Bld Glucose 354 mg/dL (70 - 100) H 01/07/18 06:47 Glycated Hemoglobin 5.8 % (4.6-6.2) 01/07/18 05:45 Estim Average Glucose 120 (70-100) H 01/07/18 05:45 Lactic Acid 3.0 mmol/L (0.5-2.2) H* 01/07/18 05:45 Calcium 7.5 mg/dL (8.5-10.3) L 01/07/18 05:45 Phosphorus 8.4 mg/dL (2.5-4.6) H 01/07/18 05:45 Magnesium 2.6 mg/dL (1.7-2.8) 01/07/18 05:45 Total Bilirubin 0.7 mg/dL (0.2-1.0) 01/05/18 21:46 AST 29 IU/L (10-42) 01/05/18 21:46 ALT 27 IU/L (10-60) 01/05/18 21:46 Alkaline Phosphatase 68 IU/L (42-121) 01/05/18 21:46 Ammonia 96.5 umol/L (7-35) H* 01/07/18 05:45 Total Protein 7.5 g/dL (6.7-8.2) 01/05/18 21:46 Albumin 3.8 g/dL (3.2-5.5) 01/05/18 21:46 Globulin 3.7 g/dL (2.1-4.2) 01/05/18 21:46 Albumin/Globulin Ratio 1.0 (1.0-2.2) 01/05/18 21:46 Lipase 26 U/L (22-51) 01/05/18 21:46 Urine Color YELLOW 01/05/18 23:00 Urine Clarity CLEAR (CLEAR) 01/05/18 23:00 Urine pH 7.0 PH (5.0-7.5) 01/05/18 23:00 Ur Specific [place] 1.015 (1.002-1.030) 01/05/18 23:00 Urine Protein NEGATIVE mg/dL (NEGATIVE) 01/05/18 23:00 Urine Glucose (UA) NEGATIVE mg/dL (NEGATIVE) 01/05/18 23:00 Urine Ketones TRACE mg/dL (NEGATIVE) 01/05/18 23:00 Urine Occult Blood NEGATIVE (NEGATIVE) 01/05/18 23:00 Urine Nitrite NEGATIVE (NEGATIVE) 01/05/18 23:00 Urine Bilirubin NEGATIVE (NEGATIVE) 01/05/18 23:00 Urine Urobilinogen 0.2 (NORMAL) E.U./dL (NORMAL) 01/05/18 23:00 Ur Leukocyte Esterase NEGATIVE (NEGATIVE) 01/05/18 23:00 Ur Microscopic Review NOT INDICATED 01/05/18 23:00 Urine Culture Comments NOT INDICATED 01/05/18 23:00 Sepsis Event Note (H) - Evaluation Current Stage of Sepsis: Severe sepsis Possible source of Sepsis: positive: GI tract/intra-abdominal - Sepsis Criteria Sepsis Criteria: Recorded Temperature greater than 38.3C or Less than 36C, Recorded Heart Rate greater than 90 bpm, Respiratory: Increasing oxygen requirements, WBC count greater than 12,000 or less than 4000, WET PAN MIXER: altered consciousness (unrelated to primary neuro pathology), SBP less than 90 mmHg, Metabolic: lactate > 2 mmol/L ABX Reporting Has patient been on IV antibiotics over the past 48 hours?: No Current Medications - Current Medications Current Medications: Active Medications Generic Name Dose Route Start Last Admin Trade Name Freq PRN Reason Stop Dose Admin Acetaminophen 650 mg 01/06/18 06:59 Tylenol PO Q4HR PRN Pain or Fever > 38C (100.4F) Albuterol 2.5 mg 01/06/18 22:59 INH RTQ4H PRN Wheezing Citalopram Hydrobromide 20 mg 01/06/18 09:00 01/07/18 11:00 Celexa PO Not Given DAILY JENNIFER Heparin Sodium (Porcine) 5,000 unit 01/06/18 09:00 01/07/18 11:00 SUBQ Not Given BID JENNIFER Hydromorphone HCl 3 mg 01/06/18 06:57 01/06/18 23:47 Dilaudid (Vial) IVP 3 mg Q3H PRN Administration PAIN Piperacillin Sod/Tazobactam 100 mls @ 200 mls/hr 01/06/18 00:00 01/07/18 06:51 Sod 3.375 gm/ Sodium Chloride IV 01/11/18 00:00 Infused Q6HR JENNIFER Infusion Sodium Chloride 1,000 mls @ 100 mls/hr 01/07/18 07:00 01/07/18 10:25 Normal Saline 0.9% IV 0 mls/hr .Q10H JENNIFER Infusion Norepinephrine Bitartrate 8 mg 250 mls @ 15 mls/hr 01/07/18 12:00 / Dextrose IV 01/08/18 04:39 .[id number] ONE Protocol 8 MCG/MIN Insulin Human Regular 1 - 5 unit 01/07/18 12:00 Novolin R SUBQ Q6HR JENNIFER Protocol Lisinopril 20 mg 01/06/18 09:00 01/07/18 11:00 Zestril PO Not Given DAILY JENNIFER Lorazepam 1 mg 01/05/18 23:51 Ativan Inj (Vial) IVP QPM PRN Anxiety Metoprolol Tartrate 5 mg 01/05/18 23:15 Lopressor Inj IVP Q2HR PRN hyperten Ondansetron HCl 4 mg 01/05/18 23:09 Zofran Inj IVP Q4HR PRN Nausea / Vomiting Pantoprazole Sodium 40 mg 01/06/18 07:00 01/07/18 06:54 Protonix IVP 40 mg QDAC JENNIFER Administration (Dextroamphetamine/ 1 each 01/07/18 09:00 01/07/18 11:01 Amphetamine [ PO Not Given Adderall 30 Mg BID JENNIFER Tablet] 30 Mg) Patient Own Med [ 1 each 01/06/18 21:00 01/07/18 11:01 Lamotrigine 100mg PO Not Given Tab] BID JENNIFER Polyethylene Glycol 17 gm 01/06/18 09:00 01/07/18 11:01 Miralax PO Not Given DAILY JENNIFER Sodium Chloride 10 ml 01/07/18 09:00 01/07/18 09:00 Normal Saline Flush 0.9% IVP 10 ml 0100,0900,1700 JENNIFER Administration Sodium Chloride 10 ml 01/07/18 06:14 Normal Saline Flush 0.9% IVP PRN PRN NEEDED PER PROVIDER ORDERS Zolpidem Tartrate 5 mg 01/05/18 23:04 Ambien PO QPM PRN Insomnia Albuterol Sulf [Ventolin Hfa Inhaler] 1 - 2 puffs INH Q4HR PRN 01/06/18 Citalopram Hydrobromide [Citalopram HBr] 20 mg PO DAILY 01/06/18 Naproxen Sodium [Aleve] 220 mg PO DAILY PRN 01/06/18 lamoTRIgine [LaMICtal] 100 mg PO BID 01/06/18
[2018-01-07] MEDS ORDERED: NORepinephrine 8 MG in DEXTROSE 5% 250ML IV ONE (12:00)
[2018-01-07 12:12] LABS: ABG PCO2 46 mmHg (34-45); ABG PH 7.25 (7.35-7.45)
[2018-01-07 12:13] LABS: ABG BASE EXCESS -7.1 mmol/L (-2.0-3.0); ABG HCO3 19.9 mmol/L (22.0-26.0); ABG OXYGEN SATURATION 97 % (94-98); ABG PO2 95 mmHg (80-100); ABG TCO2 21.3 MMOL/L (21.0-29.0)
[2018-01-07] MEDS ORDERED: VASOPRESSIN 20 UNIT/ML VIAL ONE ×2 (12:29)
--- NOTE | 2018-01-07 13:36 | IMMEDIATE POSTOPERATIVE NOTE ---
Immediate Postoperative Note - Procedure Note Procedure Date: 01/07/18 Pre-Op Diagnosis: acute abdomen Procedure: open sigmoidectomy with colostomy Post-Op Diagnosis: perforated diverticulitis Primary Surgeon: sinan Fixed Wing Pilot: dagmar Anesthesia Type: General ET tube Complications: No complications Estimated Blood Loss (in cc): 100 Specimens and Cultures: sigmoid colon Plan of Care: expectant in ICU
[2018-01-07] MEDS ORDERED: D5.45NS W/20 MEQ KCL 1,000 ML IV SCH (14:00)
[2018-01-07] MEDS ORDERED: VASOPRESSIN 20 UNIT/ML VIAL IVP ONE (14:36)
[2018-01-07] MEDS ORDERED: fentaNYL 250 MCG/5 ML VIAL IVP ONE (14:36)
[2018-01-07] MEDS ORDERED: KETAMINE 500 MG/10 ML VIAL IVP ONE (14:36)
[2018-01-07] MEDS ORDERED: MIDAZOLAM 2 MG/2 ML VIAL IVP ONE (14:36)
[2018-01-07] MEDS ORDERED: ROCURONIUM 50 MG/5 ML VIAL IVP ONE (14:36)
[2018-01-07] MEDS ORDERED: PROPOFOL 200 MG/20 ML VIAL IVP ONE (14:36)
[2018-01-07] MEDS ORDERED: PHENYLEPHRINE 50 MG/5 ML VIAL IV ONE (14:36)
[2018-01-07] MEDS ORDERED: MORPHINE 2 MG/ML CARPUJECT IVP PRN (14:40)
[2018-01-07] MEDS ORDERED: SODIUM CHLORIDE 0.9% 3,500 ML IV STA (14:40)
[2018-01-07] MEDS ORDERED: MIDAZOLAM 2 MG/2 ML VIAL IVP PRN (14:42)
[2018-01-07] MEDS ORDERED: VANCOMYCIN PER PHARMACY 2 GM in SODIUM CHLORIDE 0.9% 250 ML IV SCH (14:42)
[2018-01-07] MEDS ORDERED: IPRATROPIUM/ALBUTEROL 3 ML NEB INH PRN (14:42)
[2018-01-07 15:18] LABS: BASOPHILS % (AUTO) 0.3 %; LYMPHOCYTES # (AUTO) 0.6 10^3/uL (1.5-3.5); LYMPHOCYTES % (AUTO) 6.4 %; MEAN CORPUSCULAR HEMOGLOBIN 27.8 pg (27.0-31.0); MEAN CORPUSCULAR HGB CONC 33.5 g/dL (32.0-36.0); MEAN CORPUSCULAR VOLUME 82.9 fL (80.0-94.0); MEAN PLATELET VOLUME 7.9 fL (7.4-11.4); MONOCYTES # (AUTO) 0.4 10^3/uL (0.0-1.0); MONOCYTES % (AUTO) 5.1 %; NEUTROPHILS # (AUTO) 7.7 10^3/uL (1.5-6.6); NEUTROPHILS % (AUTO) 88.2 %; PLT - PLATELET COUNT 163 10^3/uL (130-450); RED BLOOD COUNT 4.33 10^6/uL (4.70-6.10); RED CELL DISTRIBUTION WIDTH 15.7 % (12.0-15.0); WHITE BLOOD COUNT 8.8 x10^3/uL (4.8-10.8)
[2018-01-07] MEDS ORDERED: fentaNYL 100 MCG/2 ML VIAL IVP PRN (15:27)
[2018-01-07] MEDS: INSULIN REGULAR HUMAN 100 UNIT/1 ML 10 ML MDV SUBQ SCH ×2 (15:28→17:39)
[2018-01-07 15:35] LABS: INR 1.4 (0.8-1.2); PT - PROTHROMBIN TIME 15.3 secs (9.9-12.6)
--- NOTE | 2018-01-07 15:37 | XRAY Report ---
Reason: line placement Procedure Date: 01/07/2018 Accession Number: [id number] / [id number] Procedure: XR - Chest for Line Placement CPT Code: FULL RESULT: EXAM: CHEST RADIOGRAPHY EXAM DATE: 01/07/2018 03:28 PM. CLINICAL HISTORY: Line and endotracheal placement. COMPARISON: CHEST 1 VIEW 07/29/2015 11:49 AM. TECHNIQUE: 1 view. FINDINGS: Lungs/Pleura: Moderate elevation of both hemidiaphragms. Moderate low lung volumes. Air bronchograms medial aspect left lung base. Probable small left effusion. Mild platelike atelectasis right base. No pneumothorax. Mediastinum: Mild cardiomegaly. Endotracheal tube now in place with the tip 3 cm above the mino. Left subclavian line tip mid third SVC. No tracheal shift. Other: None. IMPRESSION: 1. Moderately low lung volumes. 2. Segmental consolidation or atelectasis left lung base. 3. Possible small left pleural effusion. 4. Mild cardiomegaly. RADIA
[2018-01-07 15:39] LABS: ALBUMIN 2.4 g/dL (3.2-5.5); ALBUMIN/GLOBULIN RATIO 0.9 (1.0-2.2); BILIRUBIN,TOTAL 1.4 mg/dL (0.2-1.0); CALCIUM 6.8 mg/dL (8.5-10.3); CREATININE 2.6 mg/dL (0.6-1.2); TOTAL PROTEIN 5.2 g/dL (6.7-8.2)
[2018-01-07] MEDS ORDERED: VANCOMYCIN INJ 2 GM in SODIUM CHLORIDE 0.9% 500 ML IV SCH (16:00)
[2018-01-07 16:36] LABS: ABG PCO2 42 mmHg (34-45); ABG PH 7.33 (7.35-7.45)
[2018-01-07 16:37] LABS: ABG BASE EXCESS -3.8 mmol/L (-2.0-3.0); ABG HCO3 21.9 mmol/L (22.0-26.0); ABG OXYGEN SATURATION 98 % (94-98); ABG PO2 100 mmHg (80-100); ABG TCO2 23.2 MMOL/L (21.0-29.0)
[2018-01-07] MEDS ORDERED: DEXTROSE 50% ABBOJECT 25 GM/50 ML SYRINGE IVP ONE (17:24)
[2018-01-07] MEDS: PROPOFOL 1000 MG/100 ML 100 ML IV SCH ×2 (17:50→23:28)
[2018-01-07] MEDS ORDERED: ASPIRIN 300 MG SUPP PR STA (18:19)
[2018-01-07] MEDS ORDERED: SODIUM CHLORIDE FLUSH 0.9% 10 ML SYRINGE ONE (19:56)
[2018-01-07] MEDS ORDERED: CHLORHEXIDINE GLUCONATE 15 ML UDC PO SCH (21:00)
[2018-01-07] MEDS ORDERED: ENOXAPARIN 120 MG/0.8 ML SYRINGE SUBQ SCH (21:00)
[2018-01-07] MEDS ORDERED: ATORVASTATIN 40 MG TABLET PO SCH (21:00)
--- NOTE | 2018-01-07 21:06 | XRAY Report ---
Reason: OG tube placement Procedure Date: 01/07/2018 Accession Number: [id number] / [id number] Procedure: XR - Chest for Line Placement CPT Code: FULL RESULT: EXAM: CHEST RADIOGRAPHY EXAM DATE: 01/07/2018 08:54 PM. CLINICAL HISTORY: Esophagogastric tube placement. COMPARISON: Earlier the same day at 1510 hrs. Current exam is performed at 2038 hrs. TECHNIQUE: 1 view. FINDINGS: Lungs/Pleura: Symmetric low lung volumes. Bibasal subsegmental atelectasis, developing on the right in the interval. No evidence for pleural effusion or pneumothorax. Mediastinum: The cardiac silhouette size remains enlarged. The endotracheal tube terminates 19 mm above the mino; withdrawal 2 cm is recommended. The esophagogastric tube terminates over the fundus of the stomach. The left upper extremity PICC catheter terminates over the superior vena cava. Other: The remaining visualized bones and soft tissues are stable radiographically. IMPRESSION: 1. The esophagogastric tube placed in the interval terminates over the fundus of the stomach. 2. Withdrawal of the endotracheal tube 2 cm is recommended. 3. Bibasal atelectasis, developing on the right in the interval. 4. The remainder is stable. RADIA
--- NOTE | 2018-01-07 22:15 | OPERATIVE REPORT ---
Operative Report - General Admit Date: 01/05/18 Procedure Date: 01/07/18 Planned Procedure: Triple lumen intravenous catheter placement Pre-Op Diagnosis: Need for IV access for fluids and pressors Procedure Performed: LEFT subclavian triple-lumen catheter placement Post Op Diagnosis: Same - Procedure Note Primary Surgeon: Ricco Bhatt MD Anesthesia Provider: Ricco Dubois MD (continuation of larger surgical procedure) Anesthesia Technique: General ET tube Estimated Blood Loss (mL): 10 Complications: None. - Other Other Information/Narrative: OPERATIVE DESCRIPTION/REPORT: At the completion of the surgical surgical procedure (see separate report) Dr. Dubois asked me to place a central venous catheter for the administration of fluids and pressors. The patient was already under anesthesia and the intention was to keep the patient is intubated. The patient was prepped and draped in the usual sterile manner. A "time in" then confirmed that the patient was identified with 3 identifiers (name, date and medical record number), the history and physical was in the chart, the patient was in the correct position, we had the correct personnel and equipment to complete the procedure and that anesthesia, surgery and nursing were given an opportunity to express any concerns. With the agreement of everyone in the room, I proceeded with placement of the catheter. An Arrow kit (Lot#[id number], use by date 2018-07-24) was used. With the patient in in Trendelenberg position, a finder needle was inserted into the LEFT subclavian vein taking great care to place it just under the clavicle in order to minimize the risk of pneumothorax. When good venous blood return was obtained, the wire was placed through the needle and into the vein without difficulty. Cardiac irritability confirmed that the catheter was correctly going down towards the heart. A 11 blade knife was inserted along the wire to widen the insertion site. All three lumens were flushed with saline. The dilator was then carefully inserted over the wire taking great care that the wire was ALWAYS visible. The dilator was removed and the triple lumen catheter placed over the wire again making sure that the wire was ALWAYS visible. The cap of the brown port was removed and the wire removed. The catheter was inserted to 19 cm (measured on the skin) and sutured in place with 4 3-0 silk sutures. All three ports were checked and there was excellent blood return and then flushed with heparinized saline. The sterile dressing was applied over the needle insertion site. An X-ray was ordered to confirm placement. At this point a time out was performed that confirmed that all the counts were correct, the procedure that was performed, the blood loss, the IV fluids administered, and the patients condition. With the chest x-ray showing the placement of the triple-lumen central venous catheter in the distal third of the superior vena cava, the central line can be used immediately. [employer] disclaimer: This document was created in part using voice recognition technology. Because of the inherent limitations of the system ([employer]'s [employer] D[employer] user manual states that the licensee understands that speech recognition is a statistical process and that recognition errors are inherent in the process), occasional same sounding word substitutions and grammatical errors do occur and persist despite proofreading. Please read this document for context.
[2018-01-08] MEDS: HYDROmorphone 2 MG/ML VIAL IVP PRN ×2 (00:51→05:51)
[2018-01-08 00:54] LABS: HGB - HEMOGLOBIN 11.2 g/dL (14.0-18.0); MEAN CORPUSCULAR HEMOGLOBIN 27.4 pg (27.0-31.0); MEAN CORPUSCULAR HGB CONC 33.5 g/dL (32.0-36.0); MEAN PLATELET VOLUME 8.1 fL (7.4-11.4); RED BLOOD COUNT 4.09 10^6/uL (4.70-6.10); RED CELL DISTRIBUTION WIDTH 15.9 % (12.0-15.0); WHITE BLOOD COUNT 15.6 x10^3/uL (4.8-10.8)
[2018-01-08] MEDS: INSULIN REGULAR HUMAN 100 UNIT/1 ML 10 ML MDV SUBQ SCH (00:55)
[2018-01-08 01:13] LABS: CREATININE 3.4 mg/dL (0.6-1.2); MAGNESIUM 1.7 mg/dL (1.7-2.8); PHOSPHORUS 1.7 mg/dL (2.5-4.6)
[2018-01-08 01:14] LABS: CHOL/HDL RATIO 6.5 (<5.0); CHOLESTEROL 71 mg/dL; HDL CHOLESTEROL 11 mg/dL; LDL CHOLESTEROL,CALCULATED 30 mg/dL; LDL/HDL RATIO 2.7 (<3.6); VLDL CHOLESTEROL 30 mg/dL
[2018-01-08 01:39] LABS: VBG PH 7.299 (7.31-7.41)
[2018-01-08] MEDS ORDERED: CALCIUM GLUCONATE 1,000 MG in SODIUM CHLORIDE 0.9% 50 ML IV ONE (02:19)
[2018-01-08] MEDS ORDERED: PIPERACILLIN/TAZOBACTAM 2.25 GM in SODIUM CHLORIDE 0.9% MINIBAG 100 ML IV SCH (03:00)
[2018-01-08 03:09] LABS: CALCIUM 6.2 mg/dL (8.5-10.3)
[2018-01-08 04:21] LABS: ABG PCO2 41 mmHg (34-45); ABG PO2 104 mmHg (80-100)
[2018-01-08 04:22] LABS: ABG BASE EXCESS -6.5 mmol/L (-2.0-3.0); ABG HCO3 19.4 mmol/L (22.0-26.0); ABG OXYGEN SATURATION 97 % (94-98); ABG TCO2 20.7 MMOL/L (21.0-29.0); ALLEN TEST POSITIVE
[2018-01-08] MEDS: SODIUM CHLORIDE 0.9% 1,000 ML IV SCH (04:33)
--- NOTE | 2018-01-08 05:07 | DISCHARGE SUMMARY ---
Physician: Zaynab Garrido MD DATE OF ADMISSION: 01/05/2018 DATE OF DISCHARGE: 01/08/2018 PRIMARY CARE PHYSICIAN: Dr. Los Alcazar. DISCHARGE DIAGNOSES 1. Septic shock with hypotension, elevated LFT's and acute kidney injury. 2. Diverticulitis with large bowel perforation. 3. Acute respiratory failure with hypoxia and hypercapnia. 4. Buf-IE-nuclaxrve myocardial infarction. 5. Hypertension. 6. Hyperglycemia. 7. Depression with anxiety. 8. Morbid obesity. 9. Obstructive sleep apnea. MEDICATIONS ON TRANSFER 1. Vancomycin 1.75 grams q.24h. 2. Propofol drip. 3. Zosyn 2.25 grams every 8 hours. 4. Lamotrigine 100 mg b.i.d. 5. Protonix 40 IV daily. 6. Norepinephrine at 10 mcg. 7. Metoprolol 5 mg IV push q.2h. p.r.n. 8. Novolin insulin sliding scale as needed. 9. Dilaudid 3 mg IV push q.3h. as needed. 10. Lovenox 120 mg subcutaneous daily. 11. Citalopram 20 mg daily. 12. Peridex mouthwash for oral care. 13. Lipitor 80 mg p.o. q.p.m. 14. DuoNeb via nebulizer q.4h. p.r.n. 15. Tylenol 650 p.o. q.6h. p.r.n. PRINCIPAL PROCEDURES 1. Open sigmoidectomy with colostomy 01/07/2018. 2. Triple-lumen intravenous catheter placement. 3. Intubation. IMAGING STUDIES 1. Abdomen and pelvis CT 01/05/2018 with colonic diverticulosis with prominent wall thickening in the sigmoid colon and infiltration of adjacent fat. Trace amount of free air seen tracking into the mesentery and anteriorly in the mid abdomen. No drainable fluid collection. 2. Two chest x-rays: Bibasilar atelectasis developing from admission to discharge with central line placement appropriate. HOSPITAL COURSE: This unfortunate gentleman is a morbidly obese 42-year-old man who has anxiety, PTSD and depression. These lead him to be reluctant of seeing physicians and as such is not followed on a regular basis. He has been diagnosed with high blood pressure in the past, but does not take medication. He presents with a two-day history of progressively worsening generalized abdominal pain associated with nausea, vomiting, subjective fevers and chills that developed only the night before. He had two episodes of diarrhea the night before admission and some dark red coloring to the stool. He came to the emergency room and a CT of the abdomen was performed and showed the above findings. He was given single-dose Unasyn and Flagyl in the ER. His temperature was 37.5, heart rate was 103, blood pressure 140/73, 17 breaths a minute and 96% on room air. Pain was rated at 10/10. Weigh-in on admission was 122.47 kilograms and 5 feet 3 inches tall. The patient was started on single agent Zosyn. General surgery was consulted. Over the next 48 hours, the patient's white cell count went from 8.7 to 12.3 to 20.5 thousand. Temperature spiked to 38.8. General surgery was closely monitoring the patient. In the homebound teacher hours of 01/07/2018, the patient was found to be obtunded. Responsive only with sternal rub. He had apneic-like breathing and , who slept at the bedside, noted that he had been snoring all night long, but more heavier than usual. He was felt to have obstructive sleep apnea that has been undiagnosed and in combination of the apnea and the Dilaudid he received for pain management cause acute deterioration. His blood gas was 6.86, pCO2 of 178, pO2 of 55 and base excess -6.8 after 30 minutes on BiPAP and intubation with central line was planned urgently. At the same time, the patient was being evaluated as possible septic shock, he woke up. He was combative enough that he would need to be restrained for intubation or central line. Anesthesia opted to hold off on intubating him since he was now awake. Repeat blood gas was 7.27, pCO2 of 47, pO2 of 66, base excess -6.1. As the morning progressed, however, the patient continued to show signs of hypotension and hemodynamic instability. Lactic acid had been 1.4 on admission and was now 3. As such, the patient was taken to the operating room emergently thinking that the source of his sepsis and shock was his diverticulitis. Creatinine had been 1.1 on admission and was 3.4 by the time of discharge. Liver enzymes have been normal on admission and were now rising. AST was 29 on admission and was 402 on the morning of surgery. ALT was 27 on admission and 262 on the morning of surgery. Also noted during his stay was a rise in his troponins. In the postoperative setting, his initial troponin was 0.85. It went to 1.01 on the evening of surgery and on the morning of discharge on 01/08/2018, he was 0.89. That was treated with Lovenox and he was n.p.o. with an NG, unable to get aspirin and statin. It was felt that he may have had just demand ischemia from his sepsis and his shock and not a true DE. Also noted was hyperglycemia. Prior to surgery, glucose went all the way up to 407; however, the patient had a D5 drip and may have been drawn from that line. Subsequent glucoses were lower and he was 134 on the midnight before transfer. Glycosylated hemoglobin was 5.8%. In the immediate postoperative setting the patient did well. His blood pressure became stabilized, fever went down, and he was able to come off Levophed completely by 5 in the evening. However, as the evening progressed on 01/07/2018 into the homebound teacher hours of 01/08/2018, he became hypotensive again and use of Levophed went from 0 mcg to 8 mcg per minute, then, 10 mcg per minute to maintain his blood pressure. He remained stable on the ventilator with an FiO2 of 60%, rate set at 20. He is on SIMV, tidal volume 500, PEEP of 5, pressure support of 10. Some of his hypotension was evaluated in the context of being on a propofol drip to keep him sedated. He does require high doses of propofol to keep him asleep. is at the bedside, as are his parents. They have been here all day. Since he was now requiring Levophed again, and we are a critical access hospital that has limited services, we felt it would be prudent for him to be transferred to a higher level of care with more aggressive ICU intervention capability. I spoke to general surgery on-call at [facility]. The MICU preferred that surgery be on board. The general surgeon, Dr. Moisés Boswell accepted the patient in transfer graciously. The patient is transferred in guarded condition. PHYSICAL EXAMINATION VITAL SIGNS: Temperature is 37, pulse is 88, blood pressure is 106/58 on 10 mcg of Levophed. Respirations are 20. He is 98% saturated on mechanical ventilation. He is a short statured, morbidly obese thick-necked, white male. LUNGS: Coarse air sounds in the axilla and when I roll him over on either side at the bases. HEART: He has a regular rate and rhythm. Distant cardiac tones. ABDOMEN: The abdomen is hugely protuberant, obese. No bowel sounds. The wound is closed. No bleeding. No evidence of cellulitis in the abdominal wall pannus. EXTREMITIES: He is now developing edema in his arms and legs that is new as of today. Greater than 30 minutes was spent coordinating discharge. cc: Los Alcazar MD TD: 01/08/2018 04:09 MTDD
[2018-01-08] MEDS: PROPOFOL 1000 MG/100 ML 100 ML IV SCH (05:21)
[2018-01-08 05:46] VITALS: BP 133/69
[2018-01-08] MEDS ORDERED: PANTOPRAZOLE 40 MG VIAL IVP SCH (07:00)
--- NOTE | 2018-01-08 08:28 | OPERATIVE REPORT ---
DATE OF SERVICE: 01/07/2018 Physician: Pk Mcdermott MD PREOPERATIVE DIAGNOSIS: Acute abdomen. POSTOPERATIVE DIAGNOSIS: Perforated diverticulitis. PROCEDURE PERFORMED 1. Exploratory laparotomy. 2. Sigmoidectomy. 3. Sigmoid colostomy creation. PRIMARY SURGEON: Pk Mcdermott MD SECONDARY SURGEON: Ricco Bhatt MD DESCRIPTION OF PROCEDURE: The patient is a 42-year-old man who was admitted to the hospital yesterday morning with a diagnosis of micro-perforated sigmoid diverticulitis. He was initially stable with a normal white blood cell count. However, early this morning, he became unstable with an increased white blood cell count. Additionally, his abdominal pain had intensified and he was showing early signs of sepsis. Plans were made to explore the abdomen for presumed worsening of the diverticulitis. PROCEDURE IN DETAIL: The risks and benefits were explained to the patient's ; the patient was unable to give consent at the time of surgery. He was taken to the operating room and placed under general anesthesia and intubated. The abdomen was prepped and draped. A timeout was performed, and everyone in the room agreed with the procedure. We began by making a lower midline incision that we later extended to a few inches above the belly button. We carried this down into the peritoneal cavity. We took down some adhesions to the anterior abdominal wall from the sigmoid colon, then placed a Bookwalter retractor. We did not encounter any stool or laxmi purulence in the abdomen. We did have to free up some of the small bowel and omentum from adhesions to the sigmoid. The sigmoid itself was not terribly inflamed. We were able to identify the area of perforation that had been sealed off and had a small pocket of purulent fluid, just a few cubic centimeters. We then proceeded to resect the sigmoid by first mobilizing it along its length by taking down the white line of Toldt and its underlying attachments. We then used the curved stapler to transect the sigmoid at its proximal end. We used the LigaSure device to take down the mesentery right under the sigmoid to an area of firm attachment where the perforation was. There was an area on the posterior surface that felt very hard, possibly suggestive of neoplasm. We were able to bluntly separate this area from the retroperitoneum using finger dissection. We then used the curved stapler to take down the distal end of the sigmoid right at the peritoneal reflection of the rectosigmoid junction. This was past the area of perforation and hardening. Finally we used the LigaSure to remove this portion of the sigmoid just under the colon itself. We then sent this to Pathology. Next we inspected the resection bed, identified the ureter that was intact in its course, and did not identify any other abnormality. We mobilized the descending and transverse colon along most of its length, taking down also the splenic flexure. This allowed plenty of length for the colon to reach the skin of the anterior abdominal wall for colostomy. We also placed two tacking Prolene stitches on the rectal stump. We then explored the rest of the abdomen and did not find any other areas of purulence, bleeding, or other abnormality, so we created a ostomy site in the left upper quadrant, making a circular incision in the skin and carrying it down to the fascia. A cruciate incision was made to penetrate the fascia while preserving the rectus muscle, and the peritoneum was similarly opened. The descending colon was then brought through that opening and left on the skin. The fascia was closed using looped #1 PDS with overlying loose interrupted skin julián and packing. The ostomy was then matured with 3-0 Vicryl, and this terminated the procedure. Overall, the diverticulitis was not severe and we will test for another cause of his sudden deterioration. An arterial line in left radial artery, Ivan catheter, and a left subclavian triple lumen catheter were placed during and after the case, as well. The patient had episodic hypotension that responded to vasopressors; he was otherwise stable throughout the case. The instrument and lap count was correct. INSTRUMENT COUNTS: Correct. COMPLICATIONS: None. SPECIMEN: Sigmoid colon. ESTIMATED BLOOD LOSS: 100 mL PLAN: The plan is to take this patient to the ICU on the ventilator with hemodynamic support as needed. TD: 01/07/2018 15:10 CARLITOS
[2018-01-08] MEDS ORDERED: VANCOMYCIN INJ 1.75 GM in SODIUM CHLORIDE 0.9% 500 ML IV SCH (16:00)
== END 2018-01-08 06:15 | disposition short-term general hospital (02) | DRG 329 ==
LOC: ED 21:04 → MS2 23:04 → ICU 01-07 05:50
PROVIDERS: ADMIT Family Medicine Sports Medicine; ATTEND Specialist
PROC: 0D1M0Z4 Bypass Descending Colon to Cutaneous, Open Approach (ICD-10-PCS; 2018-01-07)
PROC: 5A1935Z Respiratory Ventilation, Less than 24 Consecutive Hours (ICD-10-PCS; 2018-01-07)
PROC: 02HV33Z Insertion of Infusion Device into Superior Vena Cava, Percutaneous Approach (ICD-10-PCS; 2018-01-07)
PROC: 03HC33Z Insertion of Infusion Device into Left Radial Artery, Percutaneous Approach (ICD-10-PCS; 2018-01-07)
PROC: 0DTN0ZZ Resection of Sigmoid Colon, Open Approach (ICD-10-PCS; principal; 2018-01-07 10:00)
DX: K57.20 Diverticulitis of large intestine with perforation and abscess without bleeding (principal); R65.21 Severe sepsis with septic shock; A41.9 Sepsis, unspecified organism; J96.01 Acute respiratory failure with hypoxia; J96.02 Acute respiratory failure with hypercapnia; I21.A1 Myocardial infarction type 2; N17.9 Acute kidney failure, unspecified; Z68.42 Body mass index [BMI] 45.0-49.9, adult; E87.2 Acidosis; R74.8 Abnormal levels of other serum enzymes; J45.909 Unspecified asthma, uncomplicated; T40.2X5A Adverse effect of other opioids, initial encounter; E66.01 Morbid (severe) obesity due to excess calories; Y92.230 Patient room in hospital as the place of occurrence of the external cause; I10 Essential (primary) hypertension; T50.906A Underdosing of unspecified drugs, medicaments and biological substances, initial encounter; Z91.128 Patient's intentional underdosing of medication regimen for other reason; F41.8 Other specified anxiety disorders; F90.9 Attention-deficit hyperactivity disorder, unspecified type; G47.33 Obstructive sleep apnea (adult) (pediatric); F43.10 Post-traumatic stress disorder, unspecified; M54.9 Dorsalgia, unspecified; G89.29 Other chronic pain; Z78.1 Physical restraint status; Z87.891 Personal history of nicotine dependence; Z79.899 Other long term (current) drug therapy; Z87.442 Personal history of urinary calculi
CPT/HCPCS: 36415; 36600; 71045; 74018; 74177; 80048; 80053; 80061; 81001; 81003; 82040; 82140; 82330; 82803; 83036; 83605; 83690; 83721; 83735; 84100; 84484; 85025; 85027; 85610; 87040; 87086; 87150; 93005; 94002; 94003; 94660; 96365; 96367; 96375; 96376; 99284

== ENCOUNTER 2018-02-23 11:54 | Emergency (ER) | payer MEDICAID ==
--- NOTE | 2018-02-23 12:36 | ED Physician Documentation ---
History of Present Illness - Stated complaint Stated Complaint: ABD PX/BLEEDING - Chief complaint Chief Complaint: General - History obtained from History obtained from: Patient - History of Present Illness Timing: Other (He had a partial colectomy and ostomy about 4 weeks ago for perforated diverticulitis. Has an odd piece of tissue in the ostomy that is bleeding x 2 days.) Review of Systems Ten Systems: 10 systems reviewed and negative Constitutional: denies: Fever, Chills GI: reports: Abdominal Pain (Mild Left yesterday), Bloody / black stool. denies: Nausea, Vomiting PD PAST MEDICAL HISTORY - Past Medical History Cardiovascular: Hypertension Respiratory: Asthma, Sleep apnea Neuro: None, Other Endocrine/Autoimmune: Type 2 diabetes GI: None : Kidney stones HEENT: None Psych: ADD/ADHD Musculoskeletal: Chronic back pain Derm: None - Past Surgical History Past Surgical History: Yes General: Other - Present Medications Home Medications: Ambulatory Orders Medication Instructions Recorded Confirmed Albuterol Sulf [Ventolin Hfa 1 - 2 puffs INH Q4HR PRN 01/06/18 01/06/18 Inhaler] Citalopram Hydrobromide 20 mg PO DAILY 01/06/18 01/06/18 [Citalopram HBr] Naproxen Sodium [Aleve] 220 mg PO DAILY PRN 01/06/18 01/06/18 lamoTRIgine [LaMICtal] 100 mg PO BID 01/06/18 01/06/18 - Allergies Allergies/Adverse Reactions: Allergies Allergy/AdvReac Type Severity Reaction Status Date / Time hydrocodone bitartrate * Allergy Intermediate Hallucinati Verified 10/02/14 16:07 [From Vicodin] ons - Social History Does the pt smoke?: No Smoking Status: Never smoker Does the pt drink ETOH?: No Does the pt have substance abuse?: No - Family History Family history: reports: Non contributory - Immunizations Immunizations are current?: Yes - POLST Patient has POLST: No PD ED PE NORMAL - Vitals Vital signs reviewed: Yes - General General: Alert and oriented X 3, No acute distress - HEENT HEENT: PERRL, EOMI - Neck Neck: Supple, no meningeal sign, No bony TTP - Cardiac Cardiac: RRR, No murmur - Respiratory Respiratory: No respiratory distress, Clear bilaterally - Abdomen Abdomen: Other (Left sided ostomy with a piece of tissue in it that is easily movable and is inflamed with evidence of recent bleeding a small amount of blood in the bag.) - Derm Derm: Normal color, Warm and dry - Neuro Neuro: Alert and oriented X 3, Normal speech - Psych Psych: Normal mood, Normal affect Results - Vitals Vitals: Vital Signs - 24 hr 02/23/18 12:15 Temperature 36.4 C L Heart Rate 73 Respiratory 18 Rate Blood Pressure 120/79 O2 Saturation 98 Oxygen O2 Source Room air - Labs Labs: Laboratory Tests 02/23/18 02/23/18 13:10 13:10 WBC 9.4 RBC 3.75 L Hgb 10.7 L Hct 30.6 L MCV 81.6 MCH 28.5 MCHC 34.9 RDW 16.5 H Plt Count 305 MPV 6.8 L Neut # (Auto) 5.8 Lymph # (Auto) 2.8 Kleberg # (Auto) 0.6 Eos # (Auto) 0.1 Baso # (Auto) 0.1 Absolute Nucleated RBC 0.00 Nucleated RBC % 0.0 Sodium 138 Potassium 3.3 L Chloride 100 L Carbon Dioxide 28 Anion Gap 10.0 BUN 14 Creatinine 1.3 H Estimated GFR (MDRD) 60 L Glucose 109 H Calcium 8.8 Total Bilirubin 0.4 AST 22 ALT 19 Alkaline Phosphatase 98 Total Protein 7.2 Albumin 3.7 Globulin 3.5 Albumin/Globulin Ratio 1.1 Lipase 47 PD MEDICAL DECISION MAKING - ED course ED course: Dr. Bhatt came in and saw the patient and revised the ostomy. Departure - Departure Disposition: 01 Home, Self Care Clinical Impression: Complication of ostomy Condition: Good Record reviewed to determine appropriate education?: Yes Instructions: Colostomy Stoma Care
[2018-02-23 13:23] LABS: BASOPHILS # (AUTO) 0.1 10^3/uL (0.0-0.1); BASOPHILS % (AUTO) 0.6 %; EOSINOPHILS # (AUTO) 0.1 10^3/uL (0.0-0.7); EOSINOPHILS % (AUTO) 0.8 %; HGB - HEMOGLOBIN 10.7 g/dL (14.0-18.0); LYMPHOCYTES # (AUTO) 2.8 10^3/uL (1.5-3.5); LYMPHOCYTES % (AUTO) 30.3 %; MEAN CORPUSCULAR HEMOGLOBIN 28.5 pg (27.0-31.0); MEAN CORPUSCULAR HGB CONC 34.9 g/dL (32.0-36.0); MEAN CORPUSCULAR VOLUME 81.6 fL (80.0-94.0); MEAN PLATELET VOLUME 6.8 fL (7.4-11.4); MONOCYTES # (AUTO) 0.6 10^3/uL (0.0-1.0); MONOCYTES % (AUTO) 6.8 %; NEUTROPHILS # (AUTO) 5.8 10^3/uL (1.5-6.6); NEUTROPHILS % (AUTO) 61.5 %; PLT - PLATELET COUNT 305 10^3/uL (130-450); RED BLOOD COUNT 3.75 10^6/uL (4.70-6.10); RED CELL DISTRIBUTION WIDTH 16.5 % (12.0-15.0); WHITE BLOOD COUNT 9.4 x10^3/uL (4.8-10.8)
[2018-02-23 13:36] LABS: ALBUMIN 3.7 g/dL (3.2-5.5); ALBUMIN/GLOBULIN RATIO 1.1 (1.0-2.2); BILIRUBIN,TOTAL 0.4 mg/dL (0.2-1.0); CALCIUM 8.8 mg/dL (8.5-10.3); CREATININE 1.3 mg/dL (0.6-1.2); TOTAL PROTEIN 7.2 g/dL (6.7-8.2)
[2018-02-23 14:13] VITALS: BP 123/78
== END 2018-02-23 14:12 | disposition home or self-care (01) ==
LOC: ED 11:54
DX: K94.09 Other complications of colostomy (principal); K94.01 Colostomy hemorrhage; Y83.3 Surgical operation with formation of external stoma as the cause of abnormal reaction of the patient, or of later complication, without mention of misadventure at the time of the procedure; I10 Essential (primary) hypertension; E11.9 Type 2 diabetes mellitus without complications
CPT/HCPCS: 36415; 80053; 83690; 85025; 99282; 99283

== ENCOUNTER 2018-04-20 15:38 | Outpatient (CLI) | payer MEDICAID ==
--- NOTE | 2018-04-21 11:21 | XRAY Report ---
Reason: LOBAR PNEUMONIA Procedure Date: 04/20/2018 Accession Number: [id number] / [id number] Procedure: XRN - Chest 2 View X-Ray CPT Code: 42329 FULL RESULT: EXAM: CHEST RADIOGRAPHY EXAM DATE: 04/20/2018 03:56 PM. CLINICAL HISTORY: Lobar pneumonia. COMPARISON: CHEST FOR LINE PLACEMENT 01/07/2018 8:38 PM. TECHNIQUE: 2 views. FINDINGS: Lungs/Pleura: There are subtle minimal linear densities in the left retrocardiac region, subsegmental atelectasis versus early airspace disease. No lobar opacities evident. No pleural effusion. No pneumothorax. Normal volumes. Mediastinum: Heart and mediastinal contours are unremarkable. Other: None. IMPRESSION: The radiograph is negative for lobar pneumonia. There are subtle linear opacities in the retrocardiac region on the left with differential diagnosis as described above. RADIA
== END 2018-04-20 15:39 | disposition home or self-care (01) ==
LOC: DI.N 15:38
PROVIDERS: ATTEND Nurse Practitioner Gerontology
DX: R91.8 Other nonspecific abnormal finding of lung field (principal)
CPT/HCPCS: 71046

== ENCOUNTER 2018-06-08 09:16 | Day surgery (SDC) | payer MEDICAID ==
[2018-06-08] MEDS ORDERED: LACTATED RINGERS 1,000 ML IV ONE (09:43)
[2018-06-08] MEDS ORDERED: fentaNYL 250 MCG/5 ML VIAL IVP ONE (09:50)
[2018-06-08] MEDS ORDERED: MIDAZOLAM 2 MG/2 ML VIAL IVP ONE (09:50)
[2018-06-08 10:35] LABS: BASOPHILS % (AUTO) 0.4 %; EOSINOPHILS # (AUTO) 0.1 10^3/uL (0.0-0.7); EOSINOPHILS % (AUTO) 1.9 %; HGB - HEMOGLOBIN 11.6 g/dL (14.0-18.0); LYMPHOCYTES % (AUTO) 27.3 %; MEAN CORPUSCULAR HGB CONC 33.4 g/dL (32.0-36.0); MEAN CORPUSCULAR VOLUME 77.8 fL (80.0-94.0); MEAN PLATELET VOLUME 7.3 fL (7.4-11.4); MONOCYTES # (AUTO) 0.5 10^3/uL (0.0-1.0); MONOCYTES % (AUTO) 6.2 %; NEUTROPHILS # (AUTO) 4.8 10^3/uL (1.5-6.6); NEUTROPHILS % (AUTO) 64.2 %; PLT - PLATELET COUNT 210 10^3/uL (130-450); RED BLOOD COUNT 4.44 10^6/uL (4.70-6.10); RED CELL DISTRIBUTION WIDTH 16.1 % (12.0-15.0); WHITE BLOOD COUNT 7.5 x10^3/uL (4.8-10.8)
[2018-06-08 10:45] LABS: CALCIUM 8.8 mg/dL (8.5-10.3)
[2018-06-08 10:56] VITALS: BP 94/63
== END 2018-06-08 09:17 | disposition home or self-care (01) ==
LOC: SDS 09:16
PROVIDERS: ATTEND Surgery
PROC: 0DBN8ZZ Excision of Sigmoid Colon, Via Natural or Artificial Opening Endoscopic (ICD-10-PCS; principal; 2018-06-08 10:30)
DX: Z01.818 Encounter for other preprocedural examination (principal); D12.5 Benign neoplasm of sigmoid colon; Z93.3 Colostomy status; Z87.19 Personal history of other diseases of the digestive system; E66.01 Morbid (severe) obesity due to excess calories; Z68.41 Body mass index [BMI] 40.0-44.9, adult; I13.0 Hypertensive heart and chronic kidney disease with heart failure and stage 1 through stage 4 chronic kidney disease, or unspecified chronic kidney disease; N18.2 Chronic kidney disease, stage 2 (mild); I50.9 Heart failure, unspecified; Z87.891 Personal history of nicotine dependence
CPT/HCPCS: 36415; 44389; 80048; 85025; J3010; J7120

== ENCOUNTER 2018-06-09 06:49 | Inpatient (IN) | payer MEDICAID ==
[2018-06-09] MEDS ORDERED: SODIUM CHLORIDE 0.9% IV SCH (07:00)
[2018-06-09] MEDS ORDERED: CEFOXITIN IV SCH (07:00)
[2018-06-09] MEDS ORDERED: LACTATED RINGERS 1,000 ML IV ONE ×4 (07:45→12:41)
--- NOTE | 2018-06-09 07:48 | ANESTHESIA ---
Pre-Anesthesia VS, & Labs - Diagnosis Colostomy - Procedure Colostomy closure Vital Signs: Temp Pulse Resp BP Pulse Ox 36.5 C 65 18 129/82 H 95 06/09/18 07:10 06/09/18 07:10 06/09/18 07:10 06/09/18 07:10 06/09/18 07:10 Height 5 ft 3 in Weight (kg) 113.9 kg Body Mass Index 41.8 - NPO >8 hours - Lab Results Lab results reviewed: Yes Home Medications and Allergies Home Medications: Ambulatory Orders Docusate Sodium 100 mg PO BID 06/01/18 Furosemide 80 mg PO BID 06/01/18 LORazepam [Ativan] 0.5 mg PO Q6H PRN 06/01/18 Lisinopril 20 mg PO DAILY 06/01/18 Metoprolol Tartrate 1.5 tab PO BID 06/01/18 Zolpidem Tartrate [Ambien] 5 - 10 mg PO QPM PRN 06/01/18 Active Medications Cefoxitin Sodium 3 gm/ Sodium (Chloride) 100 mls @ 200 mls/hr IV ONCE JENNIFER Stop: 06/09/18 10:00 Citalopram Hydrobromide [Citalopram HBr] 20 mg PO DAILY 01/06/18 lamoTRIgine [LaMICtal] 100 mg PO BID 01/06/18 Docusate Sodium 100 mg PO BID 06/01/18 Furosemide 80 mg PO BID 06/01/18 LORazepam [Ativan] 0.5 mg PO Q6H PRN 06/01/18 Lisinopril 20 mg PO DAILY 06/01/18 Metoprolol Tartrate 1.5 tab PO BID 06/01/18 Zolpidem Tartrate [Ambien] 5 - 10 mg PO QPM PRN 06/01/18 Allergies/Adverse Reactions: Allergies Allergy/AdvReac Type Severity Reaction Status Date / Time hydrocodone bitartrate * Allergy Intermediate Hallucinati Verified 10/02/14 16:07 [From Vicodin] ons varenicline [From Chantix] AdvReac Hallucinati Verified 06/09/18 07:13 ons Anes History & Medical History - Anesthetic History Anesthesia Complications: reports: No previous complications Family history of Anesthesia Complications: Denies Family history of Malignant Hyperthermia: Denies - Medical History Cardiovascular: reports: Hypertension Pulmonary: reports: Pneumonia, Sleep apnea Gastrointestinal: reports: Diverticulitis, Other Urinary: reports: Kidney stones, Other Neuro: reports: None, Other Musculoskeletal: reports: None Endocrine/Autoimmune: reports: None Blood Disorders: reports: None Skin: reports: None Smoking Status: Never smoker - Surgical History General: Bowel surgery Urologic: Testicular surgery Exam General: Alert, Oriented x3, Cooperative Dental: Dentures full Upper, Dentures full Lower Mouth Openin Fingerbreadth Neck Mobility: Normal Mallampati classification: II Thyromental Distance: 4-6 cm Respiratory: Lungs clear, Normal breath sounds, No respiratory distress Cardiovascular: Regular rate Neurological: Normal speech Mental/Cognitive Status: Alert/Oriented X3, Normal for patient Cognitive Status: Within normal limits Plan Anesthesia Type: General, Transverse Abdominis Plane (TAP) Block Regional Block: Per Surgeon's request for Post Op pain control Consent for Procedure(s) Verified and Reviewed: Yes Code Status: Attempt Resuscitation ASA classification: 2-Mild systemic disease Is this case an emergency?: No
[2018-06-09] MEDS ORDERED: BUPIVACAINE 0.5% PF 30 ML VIAL ONE (08:19)
[2018-06-09] MEDS ORDERED: LIDOCAINE-MPF 2% 5 ML VIAL IM ONE (11:35)
[2018-06-09] MEDS ORDERED: DEXAMETHASONE 4 MG/ML VIAL IVP ONE (11:35)
[2018-06-09] MEDS ORDERED: SODIUM CHLORIDE 0.9% 10 ML VIAL IV ONE (11:35)
[2018-06-09] MEDS ORDERED: ROCURONIUM 50 MG/5 ML VIAL IVP ONE (11:35)
[2018-06-09] MEDS ORDERED: ROPIVACAINE 0.2% PF 10 ML AMPULE EPI ONE (11:35)
[2018-06-09] MEDS ORDERED: PROPOFOL 1000 MG/100 ML IV ONE (11:35)
[2018-06-09] MEDS ORDERED: MIDAZOLAM 2 MG/2 ML VIAL IVP ONE (11:35)
[2018-06-09] MEDS ORDERED: fentaNYL 100 MCG/2 ML VIAL IVP ONE (11:35)
[2018-06-09] MEDS ORDERED: ACETAMINOPHEN 1,000 MG/100 ML 100 ML IV ONE (11:35)
[2018-06-09] MEDS ORDERED: ePHEDrine 50 MG/ML VIAL IVP ONE (11:35)
[2018-06-09] MEDS ORDERED: PHENYLEPHRINE 10 MG/ML VIAL IV ONE (11:35)
[2018-06-09] MEDS ORDERED: ONDANSETRON 4 MG/2 ML VIAL IVP ONE (11:35)
[2018-06-09] MEDS ORDERED: NALBUPHINE 10 MG/ML AMP IVP PRN (13:07)
[2018-06-09] MEDS ORDERED: ONDANSETRON 4 MG/2 ML VIAL IVP PRN (13:07)
[2018-06-09] MEDS ORDERED: fent/BUPIV 2 MCG/0.125% 250 ML EP PRN ×3 (13:07→15:49)
[2018-06-09] MEDS ORDERED: fent/BUPIV 2 MCG/0.125% 250 ML EP ONE (13:31)
--- NOTE | 2018-06-09 14:39 | OPERATIVE REPORT ---
Operative Report - General Admit Date: 06/09/18 Planned Procedure: Colostomy takedown Pre-Op Diagnosis: Colostomy Procedure Performed: Colostomy takedown Post Op Diagnosis: Colostomy - Procedure Note Primary Surgeon: Ricco Bhatt MD Secondary Surgeon: Tod Garcia MD Anesthesia Provider: Ofe Sow CRNA Anesthesia Technique: Epidural, General ET tube IV Fluids (mL): 2,100 Estimated Blood Loss (mL): 200 Urine Output (mL): 300 Complications: None. - Other Other Information/Narrative: OPERATIVE DESCRIPTION/REPORT: After verbal and written informed consent was obtained detailing the risks of infection, bleeding requiring transfusion with its risks, nerve injury, and , and after I met with the patient confirming the surgery and the site of the surgery, the patient was brought to the operative suite and placed supine on the operating table. Great care was taken to avoid pressure points to prevent pressure necrosis or nerve injury. Monitoring devices were applied along with TEDs and pneumatic compressive stockings (to prevent DVT). The patient received preoperative antibiotics for surgical prophylaxis. Ofe Sow CRNA sedated and anesthetized the patient for the entire procedure. An epidural catheter was placed. The patient was prepped and draped in the usual sterile manner. With the patient draped my initials were clearly visible. A "time in" then confirmed that the patient was identified with 3 identifiers (name, date and medical record number), the history and physical was in the chart, the signed consent confirming the procedure was in the chart, the patient was in the correct position, the aforementioned prophylactic measures were in place or given, we had the correct personnel and equipment to complete the procedure and that anesthesia, surgery and nursing were given an opportunity to express any concerns. With the agreement of everyone in the room, we proceeded with the operation. Prior to prepping and draping the patient, the colostomy was sewn shut. The patient was prepped and draped in the usual sterile manner. A midline incision was made mimicking the previous incision and this was taken down sharply to the fascia using a scalpel. Hemostasis was obtained using Bovie electrocautery. The fascia was incised as was the peritoneum gaining entry into the abdomen without difficulty. The intraloop adhesions as well as adhesions to the anterior abdominal wall were taken down sharply using Metzenbaum scissors as well as Bovie electrocautery. When the bowel was entirely freed and the colos ambrocio could be identified clearly attention was placed to taking down the colostomy. A transverse elliptical incision was then created surrounding the colostomy. This was taken down to the colon and then subsequently the fascial opening using a combination of Metzenbaum scissors and Bovie electrocautery. Once this was completed the colostomy was inverted through the opening in the fascia and the remaining adhesions were taken. A moist lap sponge was place in the opening that had been the colostomy. It was clear that additional length of colon would be needed to reach into the pelvis and as a result the incision was lengthened superiorly in order for me to visualize the transverse colon and splenic flexure. The colon was mobilized from the gastrocolic ligament as well as from the splenic flexure using serial application of the LigaSure. Once I was sure of the colon would reach into the pelvis without any tension, an automatic purse string contour sander was then placed across the distal colon where there was a clear demarcation and a 3-0 Prolene on a Noe needle was used to form the purse string. The anvil of a 31 mm EEA stapler was obtained and after the colostomy and compromised bowel was cut off, and the purse isiah removed, the anvil was placed into the open end of the colon and the 3-0 Prolene was tied tight around the post. The rectum was then mobilized using Bovie electrocautery as well as LigaSure and the two Prolenes that had been placed on the corners during the previous operation aided this. I then went below and after dilating the patients anus with water soluble lubricant and ultimately three fingers, inserted the 31 mm EEA stapler through the patients anus. The tip of this was guided by Dr. Garcia to the stapled edge of the rectum. With great care and under direct vision, the post with the spike was brought out just anterior to the previously placed staple line. The the post of the anvil was inserted over the spike until a click was heard. The stapler was then screwed down tight and 5 minutes were allowed to elapse for evacuation of blood from the potential anastomosis. While we are waiting for the blood to leave the area to Lembert sutures of 3-0 Vicryl were placed at the 3 and 6 o'clock position just in case there was a difficulty with the anastomosis. The stapler was fired thus creating the colocolostomy. Filling the abdomen with warm saline and concomitantly injecting air into the patients rectum tested this. The anastamosis was found to be airtight. I then changed my gown and gloves. The abdomen was copiously irrigated. The fascia at the colostomy site was closed using a running 0 PDS suture posteriorly and a running 1 PDS suture anteriorly. The midline fascia was then approximated using 0 looped PDS. 3 sutures were required to close the entire length. A Anayeli fish retractor was used to prevent injury to the bowel. The skin at the ostomy and at the midline was closed using skin julián. A silver impregnated dressing was placed over both wounds. At this point a time out was performed that confirmed that all the counts were correct, the procedure that was performed, the blood loss, the IV fluids administered, and the patients condition. Dressings were then applied. All surgical counts were reported as correct. Having tolerated the procedure well, the patient was subsequently extubated and taken to recovery room in good and stable condition. [employer] disclaimer: This document was created in part using voice recognition technology. Because of the inherent limitations of the system ([employer] user manual states that the licensee understands that speech recognition is a statistical process and that recognition errors are inherent in the process), occasional same sounding word substitutions and grammatical errors do occur and persist despite proofreading. Please read this document for context.
[2018-06-09] MEDS ORDERED: KETOROLAC 15 MG/ML VIAL ONE (15:03)
[2018-06-09] MEDS ORDERED: HYDROmorphone 0.5 MG/0.5 ML SYRINGE ONE (15:34)
[2018-06-09] MEDS ORDERED: fentaNYL 100 MCG/2 ML VIAL ONE (15:43)
[2018-06-09] MEDS ORDERED: SODIUM CHLORIDE 0.9% 10 ML ONE (15:43)
--- NOTE | 2018-06-09 15:48 | ANESTHESIA PROCEDURE NOTE ---
Anesthesia Epidural Template - Exam Epidural Medication Information: Epidural Medications Medication fentanyl/bupivacaine Continuous Infusion Rate (mL/ 6 hr) Demand Dose Setting 4 - Other Comments Other Comments: Patient reporting 7/10 pain in pacu. Evaluated epidural. Unable to determine a dermatome level with painful stimuli. Epidural catheter had backed out 1cm and now at 14cm. Patient given 0.5mg dilaudid IV for pain. Intraoperative, patient required no narcotics and had significant sympathectomy requiring pressors to maintain blood pressure. Epidural dosed with 100mcg fentanyl with 8ml PF NS and the drip was increased to 8ml/hr with 4ml every 10mins PCEA. Will continue to monitor.
[2018-06-09] MEDS ORDERED: cefOXitin 1 GM in SODIUM CHLORIDE 0.9% MINIBAG 100 ML IV SCH (18:30)
[2018-06-09] MEDS: NS W/20 MEQ KCL 1,000 ML IV SCH (19:23)
[2018-06-09] MEDS: SODIUM CHLORIDE FLUSH 0.9% 10 ML SYRINGE IVP SCH (20:19)
[2018-06-09] MEDS: METOPROLOL TARTRATE 50 MG TABLET PO SCH (20:32)
[2018-06-09] MEDS: lamoTRIgine 100 MG TABLET PO SCH (20:32)
[2018-06-09] MEDS: ACETAMINOPHEN 1,000 MG/100 ML 100 ML IV PRN (20:42)
[2018-06-10] MEDS: SODIUM CHLORIDE FLUSH 0.9% 10 ML SYRINGE IVP SCH ×3 (03:31→17:08)
[2018-06-10] MEDS: NS W/20 MEQ KCL 1,000 ML IV SCH ×2 (05:19→15:32)
[2018-06-10] MEDS: ACETAMINOPHEN 1,000 MG/100 ML 100 ML IV PRN (05:23)
[2018-06-10 06:17] LABS: HGB - HEMOGLOBIN 11.4 g/dL (14.0-18.0); LYMPHOCYTES # (AUTO) 1.4 10^3/uL (1.5-3.5); LYMPHOCYTES % (AUTO) 11.1 %; MEAN CORPUSCULAR HEMOGLOBIN 25.5 pg (27.0-31.0); MEAN CORPUSCULAR HGB CONC 32.4 g/dL (32.0-36.0); MEAN CORPUSCULAR VOLUME 78.8 fL (80.0-94.0); MEAN PLATELET VOLUME 7.9 fL (7.4-11.4); MONOCYTES # (AUTO) 0.7 10^3/uL (0.0-1.0); NEUTROPHILS # (AUTO) 10.4 10^3/uL (1.5-6.6); NEUTROPHILS % (AUTO) 82.9 %; PLT - PLATELET COUNT 262 10^3/uL (130-450); RED BLOOD COUNT 4.46 10^6/uL (4.70-6.10); RED CELL DISTRIBUTION WIDTH 16.5 % (12.0-15.0); WHITE BLOOD COUNT 12.6 x10^3/uL (4.8-10.8)
[2018-06-10 06:27] LABS: ALBUMIN 3.3 g/dL (3.2-5.5); BILIRUBIN,TOTAL 0.6 mg/dL (0.2-1.0); CALCIUM 8.2 mg/dL (8.5-10.3); CREATININE 1.1 mg/dL (0.6-1.2); TOTAL PROTEIN 6.5 g/dL (6.7-8.2)
[2018-06-10] MEDS: PANTOPRAZOLE 40 MG VIAL IVP SCH (06:47)
[2018-06-10] MEDS: SODIUM CHLORIDE FLUSH 0.9% 10 ML SYRINGE IVP PRN (06:47)
[2018-06-10] MEDS: ENOXAPARIN 40 MG/0.4 ML SYRINGE SUBQ SCH (09:21)
[2018-06-10] MEDS: CITALOPRAM HYDROBROMIDE 20 MG TABLET PO SCH (09:23)
[2018-06-10] MEDS: LISINOPRIL 20 MG TABLET PO SCH (09:23)
[2018-06-10] MEDS: lamoTRIgine 100 MG TABLET PO SCH ×2 (09:23→21:58)
[2018-06-10] MEDS: METOPROLOL TARTRATE 50 MG TABLET PO SCH ×2 (09:23→21:58)
[2018-06-10] MEDS ORDERED: fent/BUPIV 2 MCG/0.125% 250 ML EP PRN ×4 (09:58→16:11)
--- NOTE | 2018-06-10 15:54 | ANESTHESIA POST OP EVALUATION ---
Anesthesia Post Eval - Post Anesthesia Eval CV Function Including HR & BP: positive: Stable Pain Control: positive: Adequate Nausea & Vomiting: positive: Negative Mental Status: positive: Appropriate Anesthesia Complications: positive: None (POD #1, increased epidural rate twice today for complaints of pain, currently at 14cc hr and comfortable.)
--- NOTE | 2018-06-10 21:55 | PROVIDER PROGRESS NOTE ---
Subjective - General Admit Date: 06/09/18 Procedure Date: 06/09/18 Post Op Days: 1 Procedure Performed: Colostomy takedown - Review of Systems Wound/Incisions: positive: Dressing dry and intact General: positive: Appetite (Poor - nauseous.) HEENT: positive: No symptoms Pulmonary: positive: No symptoms Cardiovascular: positive: No symptoms Gastrointestinal: positive: Nausea, Abdominal pain, Other (No evidence of bowel function yet - still a bit early.) Genitourinary: positive: No symptoms (Ivan in place with epidural.) Musculoskeletal: positive: No symptoms Skin: positive: No symptoms Psychiatric: positive: No symptoms Objective - Patient Data Reviewed Vital Signs: Yes Vital Signs: Vital Signs x48h Temp Pulse Pulse Resp BP Pulse Ox 06/10/18 21:38 36.5 C 80 24 121/71 94 06/10/18 17:57 36.5 C 76 18 104/63 93 06/10/18 16:39 36.4 C L 71 14 98 06/10/18 15:47 36.4 C L 71 22 100/57 L 93 06/10/18 15:15 72 20 118/77 99 06/10/18 15:00 69 20 105/57 L 98 06/10/18 14:45 66 20 110/64 99 06/10/18 14:30 67 20 112/65 99 Weight: Weight 06/08/18 06/09/18 06/10/18 23:59 23:59 23:59 Weight (kg) 113.9 kg Intake & Output: Intake and Output Totals x24h 06/08/18 06/09/18 06/10/18 23:59 23:59 23:59 Intake Total 2931.667 2291.667 Output Total 875 1100 Balance 2056.667 1191.667 - Lab Results Lab Results: 06/10/18 05:35 06/10/18 05:35 Other Lab Results: Lab Results x24hrs 06/10/18 06/10/18 Range/Units 05:35 05:35 WBC 12.6 H (4.8-10.8) x10^3/uL RBC 4.46 L (4.70-6.10) 10^6/uL Hgb 11.4 L (14.0-18.0) g/dL Hct 35.1 L (42.0-52.0) % MCV 78.8 L (80.0-94.0) fL MCH 25.5 L (27.0-31.0) pg MCHC 32.4 (32.0-36.0) g/dL RDW 16.5 H (12.0-15.0) % Plt Count 262 (130-450) 10^3/uL MPV 7.9 (7.4-11.4) fL Neut # (Auto) 10.4 H (1.5-6.6) 10^3/uL Lymph # (Auto) 1.4 L (1.5-3.5) 10^3/uL Alexander # (Auto) 0.7 (0.0-1.0) 10^3/uL Eos # (Auto) 0.0 (0.0-0.7) 10^3/uL Baso # (Auto) 0.0 (0.0-0.1) 10^3/uL Absolute Nucleated RBC 0.01 x10^3/uL Nucleated RBC % 0.1 /100WBC Sodium 135 (135-145) mmol/L Potassium 4.5 (3.5-5.0) mmol/L Chloride 100 L (101-111) mmol/L Carbon Dioxide 24 (21-32) mmol/L Anion Gap 11.0 (6-13) BUN 12 (6-20) mg/dL Creatinine 1.1 (0.6-1.2) mg/dL Estimated GFR (MDRD) 73 L (>89) Glucose 117 H (70-100) mg/dL Calcium 8.2 L (8.5-10.3) mg/dL Total Bilirubin 0.6 (0.2-1.0) mg/dL AST 24 (10-42) IU/L ALT 22 (10-60) IU/L Alkaline Phosphatase 69 (42-121) IU/L Total Protein 6.5 L (6.7-8.2) g/dL Albumin 3.3 (3.2-5.5) g/dL Globulin 3.2 (2.1-4.2) g/dL Albumin/Globulin Ratio 1.0 (1.0-2.2) - Current Medications Current Medications: Current Medications Generic Name Dose Route Start Last Admin Trade Name Freq PRN Reason Stop Dose Admin Citalopram Hydrobromide 20 mg 06/10/18 09:00 06/10/18 09:23 Celexa PO 20 mg DAILY JENNIFER Administration Enoxaparin Sodium 40 mg 06/10/18 09:00 06/10/18 09:21 Lovenox SUBQ 40 mg DAILY JENNIFER Administration Acetaminophen 100 mls @ 400 mls/hr 06/09/18 14:48 06/10/18 05:38 Ofirmev IV 06/11/18 14:47 Infused Q6HR PRN Infusion PAIN Potassium Chloride/Sodium Chloride 1,000 mls @ 100 mls/hr 06/09/18 15:00 06/10/18 15:32 Normal Saline 0.9% W/20 Meq Kcl IV 100 mls/hr .Q10H JENNIFER Administration Lamotrigine 100 mg 06/09/18 21:00 06/10/18 09:23 Lamictal PO 100 mg BID JENNIFER Administration Lisinopril 20 mg 06/10/18 09:00 06/10/18 09:23 Zestril PO 20 mg DAILY JENNIFER Administration Metoprolol Tartrate 50 mg 06/09/18 21:00 06/10/18 09:23 Lopressor PO 50 mg BID JENNIFER Administration Pantoprazole Sodium 40 mg 06/10/18 07:00 06/10/18 06:47 Protonix IVP 40 mg QDAC JENNIFER Administration Sodium Chloride 10 ml 06/09/18 17:00 06/10/18 17:08 Normal Saline Flush 0.9% IVP Not Given 0100,0900,1700 JENNIFER Sodium Chloride 10 ml 06/09/18 14:48 06/10/18 06:47 Normal Saline Flush 0.9% IVP 10 ml PRN PRN Administration NEEDED PER PROVIDER ORDERS - Physical Exam Wound/Incisions: positive: Dressing dry and intact General Appearance: positive: No acute distress Eyes Bilateral: positive: No lid inflammation, Conjunctivae nml, No scleral icterus ENT: positive: No signs of dehydration Neck: positive: Trachea midline Respiratory: positive: Chest non-tender, Breath sounds nml Cardiovascular: positive: Regular rate & rhythm Abdomen: positive: Abnml bowel sounds (Decreased to absent.) Skin: positive: Color nml Extremities: positive: Non-tender, Nml appearance Neurologic/Psychiatric: positive: Oriented x3, Motor nml, Sensation nml, Mood/affect nml ABX Reporting Has patient been on IV antibiotics over the past 48 hours?: Yes Impression/Plan - Problem List Problem List: D1 s/p colostomy takedown 1) FEN Continue IVF and clear liquid diet until bowel function returns. 2) ID No sign of infection. Additional antibiotics not warranted. 3) DVT Prophylaxis in place with TEDs, Venodyne's, and Lovenox. 4) Ivan Out in AM. I am concerned he will have difficulty urinating with epidural in place. 5) Activity Will consult PT for help in ambulation. 6) Cardiac On all his medications except for Lasix. Per the he is only on 40 mg daily. We will consult hospitalist if necessary.
[2018-06-11] MEDS: NS W/20 MEQ KCL 1,000 ML IV SCH ×4 (01:10→21:33)
[2018-06-11] MEDS: SODIUM CHLORIDE FLUSH 0.9% 10 ML SYRINGE IVP SCH ×3 (01:10→16:46)
[2018-06-11 06:21] LABS: BASOPHILS % (AUTO) 0.2 %; EOSINOPHILS # (AUTO) 0.1 10^3/uL (0.0-0.7); EOSINOPHILS % (AUTO) 0.6 %; HGB - HEMOGLOBIN 11.1 g/dL (14.0-18.0); MEAN CORPUSCULAR HEMOGLOBIN 25.7 pg (27.0-31.0); MEAN CORPUSCULAR HGB CONC 32.2 g/dL (32.0-36.0); MEAN CORPUSCULAR VOLUME 79.9 fL (80.0-94.0); MEAN PLATELET VOLUME 7.7 fL (7.4-11.4); MONOCYTES # (AUTO) 0.6 10^3/uL (0.0-1.0); MONOCYTES % (AUTO) 5.7 %; NEUTROPHILS # (AUTO) 8.5 10^3/uL (1.5-6.6); NEUTROPHILS % (AUTO) 75.5 %; PLT - PLATELET COUNT 249 10^3/uL (130-450); RED CELL DISTRIBUTION WIDTH 16.6 % (12.0-15.0); WHITE BLOOD COUNT 11.3 x10^3/uL (4.8-10.8)
[2018-06-11 06:30] LABS: ALBUMIN 3.1 g/dL (3.2-5.5); ALBUMIN/GLOBULIN RATIO 0.8 (1.0-2.2); BILIRUBIN,TOTAL 0.5 mg/dL (0.2-1.0); CALCIUM 8.3 mg/dL (8.5-10.3); TOTAL PROTEIN 6.8 g/dL (6.7-8.2)
[2018-06-11] MEDS: PANTOPRAZOLE 40 MG VIAL IVP SCH (06:42)
[2018-06-11] MEDS: SODIUM CHLORIDE FLUSH 0.9% 10 ML SYRINGE IVP PRN (06:42)
[2018-06-11] MEDS: LISINOPRIL 20 MG TABLET PO SCH (10:20)
[2018-06-11] MEDS: CITALOPRAM HYDROBROMIDE 20 MG TABLET PO SCH (10:20)
[2018-06-11] MEDS: lamoTRIgine 100 MG TABLET PO SCH ×2 (10:20→21:33)
[2018-06-11] MEDS: ENOXAPARIN 40 MG/0.4 ML SYRINGE SUBQ SCH (10:20)
[2018-06-11] MEDS: METOPROLOL TARTRATE 50 MG TABLET PO SCH ×2 (10:20→21:32)
[2018-06-11] MEDS ORDERED: fentaNYL 100 MCG/2 ML VIAL ONE (10:40)
[2018-06-11] MEDS ORDERED: LIDOCAINE-PF 2% 10 ML AMP SUBQ ONE (10:40)
[2018-06-11] MEDS ORDERED: SODIUM CHLORIDE 0.9% 10 ML ONE (10:40)
--- NOTE | 2018-06-11 10:44 | ANESTHESIA POST OP EVALUATION ---
Anesthesia Post Eval - Other Details/Therapies Other Details/Therapies: Patient reports he has good pain control while resting but rates pain 8/10 with movement. Epidural drip rate increased to 12ml/hr with 8ml every 20 mins PCEA. Dosed epidural with 5ml 0f 2% lidocaine mixed with 100 mcg fentanyl and 3ml of PF NS. Epidural site is clear, catheter is at 13cm. Will hold tomorrow's dose of lovenox for catheter removal. OK to restart lovenox 4 hours after catheter removal. Patient reports improved pain control after bolus dose.
--- NOTE | 2018-06-11 12:08 | PROVIDER PROGRESS NOTE ---
Subjective - General Admit Date: 06/09/18 Procedure Date: 06/09/18 Post Op Days: 3 Procedure Performed: Colostomy takedown - Review of Systems Wound/Incisions: positive: Dressing dry and intact General: positive: Appetite (Poor - nauseous.) HEENT: positive: No symptoms Pulmonary: positive: No symptoms Cardiovascular: positive: No symptoms Gastrointestinal: positive: Abdominal pain (Decreased.), Other (No evidence of bowel function yet.) Genitourinary: positive: No symptoms (Ivan in place with epidural.) Musculoskeletal: positive: No symptoms Skin: positive: No symptoms Psychiatric: positive: No symptoms Objective - Patient Data Reviewed Vital Signs: Yes Vital Signs: Vital Signs x48h Temp Pulse Resp BP BP Pulse Ox 06/11/18 10:20 141/77 H 06/11/18 07:53 37.3 C 95 20 141/77 H 93 06/11/18 06:00 36.6 C 93 18 152/90 H 92 Weight: Weight 06/09/18 06/10/18 06/11/18 23:59 23:59 23:59 Weight (kg) 113.9 kg Intake & Output: Intake and Output Totals x24h 06/09/18 06/10/18 06/11/18 23:59 23:59 23:59 Intake Total 2931.667 2591.667 2433.333 Output Total 875 2500 925 Balance 2056.667 91.667 1508.333 - Lab Results Lab Results: 06/12/18 05:05 06/12/18 05:05 Other Lab Results: Lab Results x24hrs 06/11/18 06/11/18 Range/Units 05:50 05:50 WBC 11.3 H (4.8-10.8) x10^3/uL RBC 4.30 L (4.70-6.10) 10^6/uL Hgb 11.1 L (14.0-18.0) g/dL Hct 34.4 L (42.0-52.0) % MCV 79.9 L (80.0-94.0) fL MCH 25.7 L (27.0-31.0) pg MCHC 32.2 (32.0-36.0) g/dL RDW 16.6 H (12.0-15.0) % Plt Count 249 (130-450) 10^3/uL MPV 7.7 (7.4-11.4) fL Neut # (Auto) 8.5 H (1.5-6.6) 10^3/uL Lymph # (Auto) 2.0 (1.5-3.5) 10^3/uL [place] # (Auto) 0.6 (0.0-1.0) 10^3/uL Eos # (Auto) 0.1 (0.0-0.7) 10^3/uL Baso # (Auto) 0.0 (0.0-0.1) 10^3/uL Absolute Nucleated RBC 0.00 x10^3/uL Nucleated RBC % 0.0 /100WBC Sodium 138 (135-145) mmol/L Potassium 4.6 (3.5-5.0) mmol/L Chloride 105 (101-111) mmol/L Carbon Dioxide 26 (21-32) mmol/L Anion Gap 7.0 (6-13) BUN 8 (6-20) mg/dL Creatinine 1.0 (0.6-1.2) mg/dL Estimated GFR (MDRD) 81 L (>89) Glucose 105 H (70-100) mg/dL Calcium 8.3 L (8.5-10.3) mg/dL Total Bilirubin 0.5 (0.2-1.0) mg/dL AST 24 (10-42) IU/L ALT 18 (10-60) IU/L Alkaline Phosphatase 65 (42-121) IU/L Total Protein 6.8 (6.7-8.2) g/dL Albumin 3.1 L (3.2-5.5) g/dL Globulin 3.7 (2.1-4.2) g/dL Albumin/Globulin Ratio 0.8 L (1.0-2.2) - Current Medications Current Medications: Current Medications Generic Name Dose Route Start Last Admin Trade Name Freq PRN Reason Stop Dose Admin Citalopram Hydrobromide 20 mg 06/10/18 09:00 06/11/18 10:20 Celexa PO 20 mg DAILY JENNIFER Administration Acetaminophen 100 mls @ 400 mls/hr 06/09/18 14:48 06/10/18 05:38 Ofirmev IV 06/11/18 14:47 Infused Q6HR PRN Infusion PAIN Potassium Chloride/Sodium Chloride 1,000 mls @ 100 mls/hr 06/09/18 15:00 06/11/18 11:53 Normal Saline 0.9% W/20 Meq Kcl IV 100 mls/hr .Q10H JENNIFER Administration Lamotrigine 100 mg 06/09/18 21:00 06/11/18 10:20 Lamictal PO 100 mg BID JENNIFER Administration Lisinopril 20 mg 06/10/18 09:00 06/11/18 10:20 Zestril PO 20 mg DAILY JENNIFER Administration Metoprolol Tartrate 50 mg 06/09/18 21:00 06/11/18 10:20 Lopressor PO 50 mg BID JENNIFER Administration Ondansetron HCl 4 mg 06/09/18 13:07 06/11/18 03:28 Zofran Inj IVP 4 mg Q6HR PRN Administration Nausea / Vomiting Pantoprazole Sodium 40 mg 06/10/18 07:00 06/11/18 06:42 Protonix IVP 40 mg QDAC JENNIFER Administration Sodium Chloride 10 ml 06/09/18 17:00 06/11/18 10:21 Normal Saline Flush 0.9% IVP Not Given 0100,0900,1700 JENNIFER Sodium Chloride 10 ml 06/09/18 14:48 06/11/18 06:42 Normal Saline Flush 0.9% IVP 10 ml PRN PRN Administration NEEDED PER PROVIDER ORDERS - Physical Exam Wound/Incisions: positive: Dressing dry and intact General Appearance: positive: No acute distress Eyes Bilateral: positive: No lid inflammation, Conjunctivae nml, No scleral icterus ENT: positive: No signs of dehydration Neck: positive: Trachea midline Respiratory: positive: Chest non-tender, No respiratory distress, Breath sounds nml Cardiovascular: positive: Regular rate & rhythm Abdomen: positive: Tenderness (Minimal.), Abnml bowel sounds (Slightly decreased.) Skin: positive: Color nml Extremities: positive: Nml appearance Neurologic/Psychiatric: positive: Oriented x3, Motor nml, Sensation nml, Mood/affect nml ABX Reporting Has patient been on IV antibiotics over the past 48 hours?: Yes Impression/Plan - Problem List Problem List: D2 s/p colostomy takedown 1) FEN Continue IVF and clear liquid diet until bowel function returns. 2) ID No sign of infection. Additional antibiotics not warranted. 3) DVT Prophylaxis in place with TEDs, Venodyne's, and Lovenox. 4) Ivan Out - make sure patient can urinate. 5) Activity Need to increase ambulation. 6) Cardiac On all his medications except for Lasix. Per the he is only on 40 mg daily. We will consult hospitalist if necessary.
[2018-06-11] MEDS: fent/BUPIV 2 MCG/0.125% 250 ML EP PRN (14:49)
[2018-06-12] MEDS: SODIUM CHLORIDE FLUSH 0.9% 10 ML SYRINGE IVP SCH ×3 (01:18→18:25)
[2018-06-12] MEDS: fent/BUPIV 2 MCG/0.125% 250 ML EP PRN (03:56)
[2018-06-12 05:50] LABS: BASOPHILS % (AUTO) 0.3 %; EOSINOPHILS # (AUTO) 0.1 10^3/uL (0.0-0.7); EOSINOPHILS % (AUTO) 1.1 %; HGB - HEMOGLOBIN 10.3 g/dL (14.0-18.0); LYMPHOCYTES # (AUTO) 1.6 10^3/uL (1.5-3.5); LYMPHOCYTES % (AUTO) 16.1 %; MEAN CORPUSCULAR HEMOGLOBIN 26.1 pg (27.0-31.0); MEAN CORPUSCULAR HGB CONC 32.5 g/dL (32.0-36.0); MEAN CORPUSCULAR VOLUME 80.1 fL (80.0-94.0); MEAN PLATELET VOLUME 7.6 fL (7.4-11.4); MONOCYTES # (AUTO) 0.6 10^3/uL (0.0-1.0); MONOCYTES % (AUTO) 6.2 %; NEUTROPHILS # (AUTO) 7.4 10^3/uL (1.5-6.6); NEUTROPHILS % (AUTO) 76.3 %; PLT - PLATELET COUNT 235 10^3/uL (130-450); RED BLOOD COUNT 3.95 10^6/uL (4.70-6.10); RED CELL DISTRIBUTION WIDTH 16.4 % (12.0-15.0); WHITE BLOOD COUNT 9.6 x10^3/uL (4.8-10.8)
[2018-06-12 05:57] LABS: ALBUMIN/GLOBULIN RATIO 0.9 (1.0-2.2); BILIRUBIN,TOTAL 0.6 mg/dL (0.2-1.0); CALCIUM 8.2 mg/dL (8.5-10.3); TOTAL PROTEIN 6.3 g/dL (6.7-8.2)
[2018-06-12] MEDS: PANTOPRAZOLE 40 MG VIAL IVP SCH (06:44)
[2018-06-12] MEDS: NS W/20 MEQ KCL 1,000 ML IV SCH (07:19)
[2018-06-12] MEDS: METOPROLOL TARTRATE 50 MG TABLET PO SCH ×2 (09:04→20:30)
[2018-06-12] MEDS: CITALOPRAM HYDROBROMIDE 20 MG TABLET PO SCH (09:05)
[2018-06-12] MEDS: lamoTRIgine 100 MG TABLET PO SCH ×2 (09:05→20:30)
[2018-06-12] MEDS: LISINOPRIL 20 MG TABLET PO SCH (09:05)
--- NOTE | 2018-06-12 10:45 | ANESTHESIA POST OP EVALUATION ---
Anesthesia Post Eval - Post Anesthesia Eval CV Function Including HR & BP: positive: Stable Pain Control: positive: Adequate Nausea & Vomiting: positive: Negative Mental Status: positive: Appropriate Anesthesia Complications: positive: None (Epidural D/C at request of general surgery, patient had good pain management from it. Tip intact upon removal, site clear. Will reorder Lovenox to restart in 4 hrs time.)
[2018-06-12] MEDS ORDERED: HYDROmorphone 1 MG/ML CARPUJECT IVP PRN (10:47)
[2018-06-12] MEDS: oxyCODONE 5 MG TABLET PO PRN ×3 (11:41→19:52)
--- NOTE | 2018-06-12 14:53 | PROVIDER PROGRESS NOTE ---
Subjective - General Admit Date: 06/09/18 Procedure Date: 06/09/18 Post Op Days: 3 Procedure Performed: Colostomy takedown - Review of Systems Wound/Incisions: positive: Dressing dry and intact General: positive: Appetite (Poor - nauseous.) HEENT: positive: No symptoms Pulmonary: positive: No symptoms Cardiovascular: positive: No symptoms Gastrointestinal: positive: Abdominal pain (Incisional only.) Genitourinary: positive: No symptoms (Ivan in place with epidural.) Musculoskeletal: positive: No symptoms Skin: positive: No symptoms Psychiatric: positive: No symptoms Objective - Patient Data Reviewed Vital Signs: Yes Vital Signs: Vital Signs x48h Temp Pulse Resp BP BP Pulse Ox 06/12/18 13:35 36.9 C 87 18 124/59 L 93 06/12/18 09:04 127/68 06/12/18 07:25 37.2 C 86 18 127/68 95 Intake & Output: Intake and Output Totals x24h 06/10/18 06/11/18 06/12/18 23:59 23:59 23:59 Intake Total 2591.667 4800.000 1736 Output Total 2500 925 Balance 91.667 3875.000 1736 - Lab Results Lab Results: 06/12/18 05:05 06/12/18 05:05 Other Lab Results: Lab Results x24hrs 06/12/18 06/12/18 Range/Units 05:05 05:05 WBC 9.6 (4.8-10.8) x10^3/uL RBC 3.95 L (4.70-6.10) 10^6/uL Hgb 10.3 L (14.0-18.0) g/dL Hct 31.6 L (42.0-52.0) % MCV 80.1 (80.0-94.0) fL MCH 26.1 L (27.0-31.0) pg MCHC 32.5 (32.0-36.0) g/dL RDW 16.4 H (12.0-15.0) % Plt Count 235 (130-450) 10^3/uL MPV 7.6 (7.4-11.4) fL Neut # (Auto) 7.4 H (1.5-6.6) 10^3/uL Lymph # (Auto) 1.6 (1.5-3.5) 10^3/uL [place] # (Auto) 0.6 (0.0-1.0) 10^3/uL Eos # (Auto) 0.1 (0.0-0.7) 10^3/uL Baso # (Auto) 0.0 (0.0-0.1) 10^3/uL Absolute Nucleated RBC 0.00 x10^3/uL Nucleated RBC % 0.0 /100WBC Sodium 138 (135-145) mmol/L Potassium 4.2 (3.5-5.0) mmol/L Chloride 103 (101-111) mmol/L Carbon Dioxide 26 (21-32) mmol/L Anion Gap 9.0 (6-13) BUN 8 (6-20) mg/dL Creatinine 1.0 (0.6-1.2) mg/dL Estimated GFR (MDRD) 81 L (>89) Glucose 99 (70-100) mg/dL Calcium 8.2 L (8.5-10.3) mg/dL Total Bilirubin 0.6 (0.2-1.0) mg/dL AST 21 (10-42) IU/L ALT 16 (10-60) IU/L Alkaline Phosphatase 54 (42-121) IU/L Total Protein 6.3 L (6.7-8.2) g/dL Albumin 3.0 L (3.2-5.5) g/dL Globulin 3.3 (2.1-4.2) g/dL Albumin/Globulin Ratio 0.9 L (1.0-2.2) - Current Medications Current Medications: Current Medications Generic Name Dose Route Start Last Admin Trade Name Freq PRN Reason Stop Dose Admin Citalopram Hydrobromide 20 mg 06/10/18 09:00 06/12/18 09:05 Celexa PO 20 mg DAILY JENNIFER Administration Potassium Chloride/Sodium Chloride 1,000 mls @ 100 mls/hr 06/09/18 15:00 06/12/18 07:19 Normal Saline 0.9% W/20 Meq Kcl IV 100 mls/hr .Q10H JENNIFER Administration Lamotrigine 100 mg 06/09/18 21:00 06/12/18 09:05 Lamictal PO 100 mg BID JENNIFER Administration Lisinopril 20 mg 06/10/18 09:00 06/12/18 09:05 Zestril PO 20 mg DAILY JENNIFER Administration Metoprolol Tartrate 50 mg 06/09/18 21:00 06/12/18 09:04 Lopressor PO 50 mg BID JENNIFER Administration Ondansetron HCl 4 mg 06/09/18 13:07 06/11/18 03:28 Zofran Inj IVP 4 mg Q6HR PRN Administration Nausea / Vomiting Oxycodone HCl 5 mg 06/12/18 10:48 06/12/18 11:41 Roxicodone PO 5 mg Q4HR PRN Administration PAIN Pantoprazole Sodium 40 mg 06/10/18 07:00 06/12/18 06:44 Protonix IVP 40 mg QDAC JENNIFER Administration Sodium Chloride 10 ml 06/09/18 17:00 06/12/18 09:05 Normal Saline Flush 0.9% IVP Not Given 0100,0900,1700 JENNIFER Sodium Chloride 10 ml 06/09/18 14:48 06/11/18 06:42 Normal Saline Flush 0.9% IVP 10 ml PRN PRN Administration NEEDED PER PROVIDER ORDERS - Physical Exam Wound/Incisions: positive: Dressing dry and intact General Appearance: positive: No acute distress Eyes Bilateral: positive: No lid inflammation, Conjunctivae nml, No scleral icterus ENT: positive: No signs of dehydration Neck: positive: Trachea midline Respiratory: positive: Chest non-tender, No respiratory distress, Breath sounds nml Cardiovascular: positive: Regular rate & rhythm Abdomen: positive: Nml bowel sounds, Tenderness (Incisional.) Extremities: positive: Non-tender, Nml appearance Neurologic/Psychiatric: positive: Oriented x3, Motor nml, Sensation nml, Mood/affect nml Impression/Plan - Problem List Problem List: D3 s/p colostomy takedown 1) FEN Had a bowel movement with "two turds" and passed gas. TKO fluids and start general diet. 2) ID No sign of infection. Additional antibiotics not warranted. 3) DVT Prophylaxis in place with TEDs, Venodyne's, and Lovenox. 4) Activity Increase in anticipation of discharge. 5) Cardiac Will restart Lasix at 40 mg dialy per patient and 's instruction. 6) Pain Epidural out started oral pain medication with IV for breakthrough.
[2018-06-12] MEDS ORDERED: NS W/20 MEQ KCL 1,000 ML IV SCH (14:58)
[2018-06-12] MEDS: ENOXAPARIN 40 MG/0.4 ML SYRINGE SUBQ SCH (15:31)
[2018-06-13] MEDS: oxyCODONE 5 MG TABLET PO PRN ×3 (00:06→09:56)
[2018-06-13] MEDS: SODIUM CHLORIDE FLUSH 0.9% 10 ML SYRINGE IVP SCH ×2 (01:49→09:14)
[2018-06-13] MEDS: PANTOPRAZOLE 40 MG VIAL IVP SCH (06:05)
--- NOTE | 2018-06-13 07:44 | Discharge Plan ---
Discharge Plan Disposition: 01 Home, Self Care Condition: Good Prescriptions: HYDROcod/ACETAM 5/325 [[employer] 5/325] 1 - 2 ea PO Q4H PRN #30 tablet PRN Reason: Pain Diet: Regular Activity Restrictions: Activity as Tolerated Shower Restrictions: No Driving Restrictions: Yes (no driving) Weight Bearing: Full Weight Instruction Topics: Oxycodone tablets or capsules No Smoking: If you smoke, Please STOP! Call for help. Follow-up with: Dawna Wylie ARNP [Primary Care Provider] -
--- NOTE | 2018-06-13 07:49 | DISCHARGE SUMMARY ---
"Discharge Summary Admit Date: 06/09/18 Discharge Date: 06/13/18 Discharging Provider: sinan Code Status: Attempt Resuscitation Condition at Discharge: Good Discharge Disposition: 01 Home, Self Care - DIAGNOSES Admission Diagnoses: colostomy Discharge Diagnoses with Status of Each Condition: reversed - HPI History of Present Illness: 42 yo man who underwent a Cortez's Procedure a few months ago for perforated diverticulitis. Admitted now for reversal. - CONSULTS | PROCEDURES Procedures: Colostomy reversal - HOSPITAL COURSE Hospital Course: He underwent an uncomplicated colostomy takedown with an uncomplicated postop c ourse. - ALLERGIES Allergies/Adverse Reactions: Allergies Allergy/AdvReac Type Severity Reaction Status Date / Time hydrocodone bitartrate * Allergy Intermediate Hallucinati Verified 10/02/14 16:07 [From Vicodin] ons varenicline [From Chantix] AdvReac Hallucinati Verified 06/09/18 07:13 ons - MEDICATIONS Home Medications: Ambulatory Orders Medication Instructions Recorded Confirmed Citalopram Hydrobromide 20 mg PO DAILY 01/06/18 06/08/18 [Citalopram HBr] lamoTRIgine [LaMICtal] 100 mg PO BID 01/06/18 06/08/18 Docusate Sodium 100 mg PO BID 06/01/18 06/08/18 Furosemide 80 mg PO BID 06/01/18 06/08/18 LORazepam [Ativan] 0.5 mg PO Q6H PRN 06/01/18 06/08/18 Lisinopril 20 mg PO DAILY 06/01/18 06/08/18 Metoprolol Tartrate 1.5 tab PO BID 06/01/18 06/08/18 Zolpidem Tartrate [Ambien] 5 - 10 mg PO QPM PRN 06/01/18 06/08/18 HYDROcod/ACETAM 5/325 [[place] 5/325] 1 - 2 ea PO Q4H PRN #30 tablet 06/13/18 - PHYSICAL EXAM AT DISCHARGE General Appearance: positive: No acute distress Eyes Bilateral: positive: Normal inspection ENT: positive: ENT inspection nml Neck: positive: Nml inspection Respiratory: positive: Chest non-tender Abdomen: positive: Tenderness Back: positive: Nml inspection Skin: positive: Color nml Extremities: positive: Non-tender - LABS Result Diagrams: 06/12/18 05:05 06/12/18 05:05 - TIME SPENT Time Spent in Discharge (Minutes): 30"
[2018-06-13 07:50] VITALS: BP 150/68
[2018-06-13] MEDS ORDERED: FUROSEMIDE 40 MG TABLET PO SCH (09:00)
[2018-06-13] MEDS: LISINOPRIL 20 MG TABLET PO SCH (09:13)
[2018-06-13] MEDS: METOPROLOL TARTRATE 50 MG TABLET PO SCH (09:13)
[2018-06-13] MEDS: CITALOPRAM HYDROBROMIDE 20 MG TABLET PO SCH (09:13)
[2018-06-13] MEDS: ENOXAPARIN 40 MG/0.4 ML SYRINGE SUBQ SCH (09:13)
[2018-06-13] MEDS: lamoTRIgine 100 MG TABLET PO SCH (09:14)
== END 2018-06-13 10:53 | disposition home or self-care (01) | DRG 330 ==
LOC: MS2 06:49
PROVIDERS: ADMIT Surgery; ATTEND Surgery
PROC: 0DBM0ZZ Excision of Descending Colon, Open Approach (ICD-10-PCS; principal; 2018-06-09 08:30)
DX: Z43.3 Encounter for attention to colostomy (principal); I13.0 Hypertensive heart and chronic kidney disease with heart failure and stage 1 through stage 4 chronic kidney disease, or unspecified chronic kidney disease; Z68.41 Body mass index [BMI] 40.0-44.9, adult; G47.30 Sleep apnea, unspecified; F98.8 Other specified behavioral and emotional disorders with onset usually occurring in childhood and adolescence; F41.0 Panic disorder [episodic paroxysmal anxiety]; F32.9 Major depressive disorder, single episode, unspecified; N18.2 Chronic kidney disease, stage 2 (mild); I50.9 Heart failure, unspecified; J45.909 Unspecified asthma, uncomplicated; E66.01 Morbid (severe) obesity due to excess calories; Z87.891 Personal history of nicotine dependence; Z87.19 Personal history of other diseases of the digestive system; Z87.01 Personal history of pneumonia (recurrent)
CPT/HCPCS: 36415; 80053; 85025; 97116; 97161; 97530; A9270; J0131; J1170; J1650; J7120; J8499

== ENCOUNTER 2018-06-14 22:46 | Emergency (ER) | payer MEDICAID ==
[2018-06-14] MEDS ORDERED: IOVERSOL 320 100 ML VIAL IVP ONE ×3 (22:47→23:59)
[2018-06-14] MEDS ORDERED: SODIUM CHLORIDE 0.9% 1,000 ML IV ONE (23:18)
[2018-06-14] MEDS ORDERED: ONDANSETRON 4 MG/2 ML VIAL IVP STA (23:18)
[2018-06-14] MEDS ORDERED: HYDROmorphone 1 MG/ML CARPUJECT IVP STA (23:18)
--- NOTE | 2018-06-14 23:25 | ED Physician Documentation ---
PD HPI ABD PAIN - Stated complaint Stated Complaint: BACK/INCISION PAIN 2 DAYS POST OP - Chief complaint Chief Complaint: Wound - History obtained from History obtained from: Patient, Family - History of Present Illness Timing - onset: Last night Timing - duration: Days (1) Timing - details: Gradual onset, Still present Quality: Sharp, Pain Location: LLQ Radiation: Lower back Improved by: Laying still Worsened by: Moving, Position, Palpation Associated symptoms: Nausea, Dysuria. No: Vomiting, Diarrhea, Constipation Similar symptoms before: Diagnosis (perforated diverticula) Recently seen: Surgery - Additional information Additional information: 42-year-old man who has a history of a perforated diverticula back in December of last year requiring a Estrellita procedure and the patient developed some sepsis following that and was transferred to [facility] in [place]. He has recently returned here and had surgery for reversal of the colostomy and he had this procedure done 5 days ago. He had an uneventful postoperative recovery and was discharged yesterday. Yesterday evening he began to develop some pain in the left lower quadrant the pain is progressed throughout the day today. He was able to get up to go to [facility]lic[facility] this morning tonight he is having a hard time getting up out of bed by himself. He has been able to eat he has had a bowel movement he has not had fever he does have some urinary symptoms. Review of Systems Constitutional: denies: Fever Eyes: denies: Decreased vision Ears: denies: Ear pain Nose: denies: Rhinorrhea / runny nose, Congestion Throat: denies: Sore throat Cardiac: denies: Chest pain / pressure, Palpitations Respiratory: denies: Dyspnea, Cough GI: reports: Abdominal Pain, Nausea. denies: Vomiting, Constipation, Diarrhea : reports: Dysuria, Frequency Skin: reports: Lesions (a single spot on the right flank with skin abrasion.). denies: Rash Musculoskeletal: reports: Back pain. denies: Neck pain, Extremity pain PD PAST MEDICAL HISTORY - Past Medical History Cardiovascular: Hypertension Respiratory: Pneumonia, Sleep apnea Neuro: None, Other Endocrine/Autoimmune: None GI: Diverticulitis, Other : Kidney stones, Other HEENT: Chronic vision loss Psych: Depression, Anxiety, ADD/ADHD, Post traumatic stress disorder Musculoskeletal: None Derm: None - Past Surgical History Past Surgical History: Yes General: Bowel surgery - Present Medications Home Medications: Ambulatory Orders Medication Instructions Recorded Confirmed Citalopram Hydrobromide 20 mg PO DAILY 01/06/18 06/08/18 [Citalopram HBr] lamoTRIgine [LaMICtal] 100 mg PO BID 01/06/18 06/08/18 Docusate Sodium 100 mg PO BID 06/01/18 06/08/18 Furosemide 80 mg PO BID 06/01/18 06/08/18 LORazepam [Ativan] 0.5 mg PO Q6H PRN 06/01/18 06/08/18 Lisinopril 20 mg PO DAILY 06/01/18 06/08/18 Metoprolol Tartrate 1.5 tab PO BID 06/01/18 06/08/18 Zolpidem Tartrate [Ambien] 5 - 10 mg PO QPM PRN 06/01/18 06/08/18 HYDROcod/ACETAM 5/325 [[place] 5/325] 1 - 2 ea PO Q4H PRN #30 tablet 06/13/18 - Allergies Allergies/Adverse Reactions: Allergies Allergy/AdvReac Type Severity Reaction Status Date / Time hydrocodone bitartrate * Allergy Intermediate Hallucinati Verified 06/14/18 22:53 [From Vicodin] ons varenicline [From Chantix] AdvReac Hallucinati Verified 06/14/18 22:53 ons - Social History Does the pt smoke?: No Smoking Status: Never smoker Does the pt drink ETOH?: No Does the pt have substance abuse?: No - Immunizations Immunizations are current?: Yes - POLST Patient has POLST: No PD ED PE NORMAL - Vitals Vital signs reviewed: Yes (hypertensive ) - General General: Alert and oriented X 3, Well developed/nourished, Other (pale appearing male moves slowly ) - HEENT HEENT: Atraumatic, PERRL, EOMI - Neck Neck: Supple, no meningeal sign - Cardiac Cardiac: RRR, No murmur - Respiratory Respiratory: No respiratory distress, Clear bilaterally - Abdomen Abdomen: Soft, Other (The incision appears without inflamation or drainage and there is no specific tenderness over the incision itself. The site of the ostomy has no pain. There is pain to palpation to the left lower quadrant specifically ) - Back Back: No CVA TTP, No spinal TTP, Other (over the right flank there is a trianglular shaped portion of the skin that looks abraided without explanation of how this occurred. The size is aboutg 2cm. 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 ) Eye Opening: Spontaneous Motor: Obeys Commands Verbal: Oriented GCS Score: 15 - Psych Psych: Normal mood, Normal affect Results - Vitals Vitals: Vital Signs - 24 hr 06/14/18 06/14/18 06/15/18 22:50 23:05 00:41 Temperature 36.9 C 37.0 C Heart Rate 68 85 Respiratory 19 16 18 Rate Blood Pressure 141/73 H 139/88 H O2 Saturation 98 93 06/15/18 01:24 Temperature Heart Rate 80 Respiratory 16 Rate Blood Pressure 139/88 H O2 Saturation 90 L Oxygen O2 Source Room air - Labs Labs: Laboratory Tests 06/14/18 06/15/18 06/15/18 23:00 00:00 00:00 WBC 7.3 RBC 3.49 L Hgb 9.2 L Hct 27.1 L MCV 77.8 L MCH 26.4 L MCHC 34.0 RDW 16.4 H Plt Count 257 MPV 6.8 L Neut # (Auto) 5.1 Lymph # (Auto) 1.6 [place] # (Auto) 0.4 Eos # (Auto) 0.1 Baso # (Auto) 0.0 Absolute Nucleated RBC 0.00 Nucleated RBC % 0.0 Sodium 138 Potassium 3.5 Chloride 104 Carbon Dioxide 26 Anion Gap 8.0 BUN 9 Creatinine 0.9 Estimated GFR (MDRD) 92 Glucose 96 Lactic Acid Calcium 8.3 L Total Bilirubin < 0.2 L AST 14 ALT 14 Alkaline Phosphatase 54 Troponin I Total Protein 6.3 L Albumin 3.0 L Globulin 3.3 Albumin/Globulin Ratio 0.9 L Lipase 24 Urine Color YELLOW Urine Clarity CLEAR Urine pH 7.0 Ur Specific Roy 1.015 Urine Protein NEGATIVE Urine Glucose (UA) NEGATIVE Urine Ketones NEGATIVE Urine Occult Blood NEGATIVE Urine Nitrite NEGATIVE Urine Bilirubin NEGATIVE Urine Urobilinogen 0.2 (NORMAL) Ur Leukocyte Esterase NEGATIVE Ur Microscopic Review NOT INDICATED Urine Culture Comments NOT INDICATED 04/22/19 04/22/19 00:00 00:00 WBC RBC Hgb Hct MCV MCH MCHC RDW Plt Count MPV Neut # (Auto) Lymph # (Auto) [place] # (Auto) Eos # (Auto) Baso # (Auto) Absolute Nucleated RBC Nucleated RBC % Sodium Potassium Chloride Carbon Dioxide Anion Gap BUN Creatinine Estimated GFR (MDRD) Glucose Lactic Acid 0.8 Calcium Total Bilirubin AST ALT Alkaline Phosphatase Troponin I < 0.04 Total Protein Albumin Globulin Albumin/Globulin Ratio Lipase Urine Color Urine Clarity Urine pH Ur Specific Roy Urine Protein Urine Glucose (UA) Urine Ketones Urine Occult Blood Urine Nitrite Urine Bilirubin Urine Urobilinogen Ur Leukocyte Esterase Ur Microscopic Review Urine Culture Comments - Rads (name of study) CT abdomen/pel with Radiology: Prelim report reviewed (Impression: 1. Small amount of free fluid and anterior left lower quadrant mesenteric fat stranding postop, the latter suggesting ischemia/inflammation of the mesenteric fat. 2 Rectosigmoid anasto mosis with a short colon compatible with resection.), EMP read indepedently, See rad report PD MEDICAL DECISION MAKING - ED course Complexity details: reviewed old records, reviewed results, re-evaluated patient, considered differential, d/w patient, d/w family, d/w health analytics consultant (DR. Fowler: likely post operative pain 01:00. ) ED course: 42-year-old male 5 days postop from a colostomy takedown has left lower quadrant abdominal pain that is worse this evening then yesterday. He has some improvement with use of intravenous Dilaudid and his white blood cell count is normal lactate is normal CT scan shows some inflammation in the postoperative area consistent with postoperative changes. The patient did get out of the house today to go to [facility]lic[facility] and I suspect he may have overdone it. I discussed the findings with the patient and his they are comfortable with going back home he did have some improvement in his pain with use of the Dilaudid and he does have Percocet at home. The surgeon Dr. Mcdermott was consulted in the case and agrees with the management as an outpatient. He will be available for follow-up as needed Departure - Departure Disposition: 01 Home, Self Care Clinical Impression: Postoperative lower abdominal pain Condition: Stable Instructions: ED Post Op Pain Follow-Up: Dawna Wylie ARNP [Primary Care Provider] - Comments: Today it appears you may have overdone it, going to [facility]lic[facility] this morning, and my recommendation is to reduce your level of activity for several days. It is important to get out of bed and move around multiple times during the day. If you have progressive pain despite this or develop fever or new symptoms call the surgeon or follow up here.
[2018-06-14 23:43] LABS: BILIRUBIN,URINE NEGATIVE (NEGATIVE); GLUCOSE, URINE (UA) NEGATIVE (NEGATIVE); KETONES,URINE (UA) NEGATIVE (NEGATIVE); LEUKOCYTE ESTERASE, URINE NEGATIVE (NEGATIVE); NITRITE,URINE NEGATIVE (NEGATIVE); OCCULT BLOOD,URINE NEGATIVE (NEGATIVE); PROTEIN,URINE NEGATIVE (NEGATIVE); UROBILINOGEN,URINE 0.2 (NORMAL) E.U./dL (NORMAL)
[2018-06-14 23:44] LABS: CLARITY,URINE CLEAR (CLEAR)
[2018-06-15 00:11] LABS: BASOPHILS % (AUTO) 0.6 %; EOSINOPHILS # (AUTO) 0.1 10^3/uL (0.0-0.7); EOSINOPHILS % (AUTO) 1.9 %; HGB - HEMOGLOBIN 9.2 g/dL (14.0-18.0); LYMPHOCYTES # (AUTO) 1.6 10^3/uL (1.5-3.5); LYMPHOCYTES % (AUTO) 21.7 %; MEAN CORPUSCULAR HEMOGLOBIN 26.4 pg (27.0-31.0); MEAN CORPUSCULAR VOLUME 77.8 fL (80.0-94.0); MEAN PLATELET VOLUME 6.8 fL (7.4-11.4); MONOCYTES # (AUTO) 0.4 10^3/uL (0.0-1.0); MONOCYTES % (AUTO) 5.4 %; NEUTROPHILS # (AUTO) 5.1 10^3/uL (1.5-6.6); NEUTROPHILS % (AUTO) 70.4 %; PLT - PLATELET COUNT 257 10^3/uL (130-450); RED BLOOD COUNT 3.49 10^6/uL (4.70-6.10); RED CELL DISTRIBUTION WIDTH 16.4 % (12.0-15.0); WHITE BLOOD COUNT 7.3 x10^3/uL (4.8-10.8)
--- NOTE | 2018-06-15 00:11 | CT Report ---
Reason: LLQ pain Procedure Date: 06/14/2018 Accession Number: [id number] / [id number] Procedure: CT - Abdomen/Pelvis W CPT Code: FULL RESULT: EXAM: CT ABDOMEN AND PELVIS EXAM DATE: 06/14/2018 11:45 PM. CLINICAL HISTORY: Left lower quadrant pain. Colon resection with colostomy 5 days ago. COMPARISONS: ABDOMEN/PELVIS W/ 01/05/2018 10:16 PM. TECHNIQUE: Routine helical CT imaging was performed through the abdomen and pelvis. IV contrast: 90 cc of Optiray 320. Enteric contrast: No. Reconstructions: Coronal and sagittal. In accordance with CT protocol optimization, one or more of the following dose reduction techniques were utilized for this exam: automated exposure control, adjustment of mA and/or KV based on patient size, or use of iterative reconstructive technique. FINDINGS: Lung Bases: Dependent atelectasis. Liver: Normal. No masses. Gallbladder/Bile Ducts: Unremarkable. Spleen: Normal. Pancreas: Normal. Adrenal Glands: Normal. 3. Mild atelectasis in the lungs. Kidneys: Normal. No masses or hydronephrosis. Peritoneal Cavity/Bowel: Shortened colon with rectosigmoid anastomosis. A small amount of free fluid. Fat stranding of the anterior mesenteric fat in the left lower quadrant without fluid collection. No free air or adenopathy. No masses or acute inflammatory process. The appendix is well visualized and normal. Pelvic Organs: Normal. The bladder and visualized pelvic organs are within normal limits. Vasculature: No aneurysms or other significant abnormality. Bones: No significant abnormality. Other: Midline skin julián. Left lower quadrant fat stranding and skin julián. IMPRESSION: 1. Small amount of free fluid and anterior left lower quadrant mesenteric fat stranding postop, the latter suggesting ischemia/inflammation of mesenteric fat. 2. Rectosigmoid anastomosis with a short colon compatible with resection. RADIA
[2018-06-15 00:21] LABS: ALBUMIN/GLOBULIN RATIO 0.9 (1.0-2.2); ALKALINE PHOSPHATASE 54 IU/L (42-121); ALT ALANINE AMINOTRANSFERASE 14 IU/L (10-60); AST ASPARTATE AMINOTRANSFERASE 14 IU/L (10-42); BILIRUBIN,TOTAL < 0.2 mg/dL (0.2-1.0); BUN - BLOOD UREA NITROGEN 9 mg/dL (6-20); CALCIUM 8.3 mg/dL (8.5-10.3); CARBON DIOXIDE - CO2 26 mmol/L (21-32); CHLORIDE 104 mmol/L (101-111); CREATININE 0.9 mg/dL (0.6-1.2); GFR - MDRD 92 (>89); GLUCOSE 96 mg/dL (70-100); LIPASE 24 U/L (22-51); SODIUM 138 mmol/L (135-145); TOTAL PROTEIN 6.3 g/dL (6.7-8.2)
[2018-06-15] MEDS ORDERED: HYDROmorphone 1 MG/ML CARPUJECT IVP STA (00:36)
[2018-06-15 00:42] VITALS: BP 139/88
== END 2018-06-15 01:46 | disposition home or self-care (01) ==
LOC: ED 22:46
DX: G89.18 Other acute postprocedural pain (principal); I10 Essential (primary) hypertension; E78.00 Pure hypercholesterolemia, unspecified; Z93.3 Colostomy status
CPT/HCPCS: 36415; 74177; 80053; 81003; 83605; 83690; 84484; 85025; 87040; 96361; 96374; 96376; 99283; 99284; J1170; Q9967; 81001; 87086

== ENCOUNTER 2018-06-23 17:26 | Emergency (ER) | payer MEDICAID ==
--- NOTE | 2018-06-23 17:37 | ED Physician Documentation ---
PD HPI WOUND RECHECK - Stated complaint Stated Complaint: PX/POST JULIÁN - Chief complaint Chief Complaint: Abd Pain - Histroy obtained from History obtained from: Patient - History of Present Illness Location: Abdomen Timing - onset: How many days ago (He is noticed 53 days of increasing redness swelling and tenderness in the left abdomen around the surgical site. He is jus t over 2 weeks status post colostomy revision by 's office. He was having postoperative pains initially afterwards and was seen in the ER on postoperative day [address] scan done at that time that did not show any obvious obstruction. There was a small amount of free fluid near the site where it seemed reasonable postoperatively. He was prescribed more pain medicine. He is doing okay until 2 to 3 days ago when he noticed redness and swelling around the left prior ostomy closure site. The main midline incision is without any notable tenderness. There is slight redness around the edges. He is supposed to see Dr. Wu tomorrow in the office as a postop visit planned. He was concerned about the redness and tenderness however.) Associated symptoms: Redness, Swelling, Pain (left lower abd). No: Fever, Drainage Recently seen: Surgery (15 days ago with revision of a colostomy.) Review of Systems Constitutional: reports: Myalgias, Fatigue. denies: Fever, Chills Nose: denies: Rhinorrhea / runny nose, Congestion Throat: denies: Sore throat Cardiac: denies: Chest pain / pressure Respiratory: denies: Cough GI: reports: Abdominal Pain, Nausea. denies: Abdominal Swelling, Vomiting, Constipation, Diarrhea, Bloody / black stool : denies: Dysuria, Frequency Skin: reports: Rash (He is having redness around the left lower abdominal surgical wound along with swelling that he had not had postoperatively.) PD PAST MEDICAL HISTORY - Past Medical History Cardiovascular: Hypertension Respiratory: Pneumonia, Sleep apnea Neuro: None, Other Endocrine/Autoimmune: None GI: Diverticulitis, Other : Kidney stones, Other HEENT: Chronic vision loss Psych: Depression, Anxiety, ADD/ADHD, Post traumatic stress disorder Musculoskeletal: None Derm: None - Past Surgical History Past Surgical History: Yes General: Bowel surgery - Present Medications Home Medications: Ambulatory Orders Medication Instructions Recorded Confirmed Citalopram Hydrobromide 20 mg PO DAILY 01/06/18 06/08/18 [Citalopram HBr] lamoTRIgine [LaMICtal] 100 mg PO BID 01/06/18 06/08/18 Docusate Sodium 100 mg PO BID 06/01/18 06/08/18 Furosemide 80 mg PO BID 06/01/18 06/08/18 LORazepam [Ativan] 0.5 mg PO Q6H PRN 06/01/18 06/08/18 Lisinopril 20 mg PO DAILY 06/01/18 06/08/18 Metoprolol Tartrate 1.5 tab PO BID 06/01/18 06/08/18 Zolpidem Tartrate [Ambien] 5 - 10 mg PO QPM PRN 06/01/18 06/08/18 HYDROcod/ACETAM 5/325 [[place] 5/325] 1 - 2 ea PO Q4H PRN #30 tablet 06/13/18 Cephalexin [Keflex] 500 mg PO Q6H #28 capsule 06/23/18 Oxycodone HCl/Acetaminophen 1 each PO Q6H PRN #20 tablet 06/23/18 [Percocet 5-325 mg Tablet] Sulfamethox/Trimeth 800/160 1 each PO BID #14 tablet 06/23/18 [Bactrim Ds 800/160] - Allergies Allergies/Adverse Reactions: Allergies Allergy/AdvReac Type Severity Reaction Status Date / Time hydrocodone bitartrate * Allergy Intermediate Hallucinati Verified 06/14/18 22:53 [From Vicodin] ons varenicline [From Chantix] AdvReac Hallucinati Verified 06/23/18 17:32 ons - Social History Does the pt smoke?: No Smoking Status: Never smoker Does the pt drink ETOH?: No Does the pt have substance abuse?: No - Immunizations Immunizations are current?: Yes - POLST Patient has POLST: No PD ED PE NORMAL - Vitals Vital signs reviewed: Yes - General General: Alert and oriented X 3, Well developed/nourished, Other (appears in pain and has tenderness at Left lower surgical site and not much in midline scar site. ) - HEENT HEENT: Pharynx benign - Neck Neck: Supple, no meningeal sign, No adenopathy - Cardiac Cardiac: RRR, No murmur - Respiratory Respiratory: Clear bilaterally - Abdomen Abdomen: Normal bowel sounds, Soft, Non distended, No organomegaly, Other (Midline surgical scar still has julián in place. There is minimal redness at the surgical staple holes suggesting more irritation. There is no drainage. There is no surrounding redness. There is some dryness of the scabs over the area. The prior colostomy site in the left lower abdomen has still has julián in place. However there is surrounding redness and warmth about 2 to 3 cm in diameter. There is localized swelling and considerable tenderness. There is no obvious fluctuance felt. There is deeper tenderness however.) - Back Back: No CVA TTP - Derm Derm: Normal color, Warm and dry - Neuro Neuro: Alert and oriented X 3, No motor deficit, Normal speech Results - Vitals Vitals: Vital Signs - 24 hr 06/23/18 06/23/18 06/23/18 17:30 17:32 19:32 Temperature 36.2 C L Heart Rate 64 64 71 Respiratory 20 20 18 Rate Blood Pressure 148/89 H 148/89 H 157/78 H O2 Saturation 99 99 96 06/23/18 21:15 Temperature Heart Rate 58 L Respiratory 17 Rate Blood Pressure 129/79 O2 Saturation 97 Oxygen O2 Source Room air - Labs Labs: Laboratory Tests 06/23/18 06/23/18 18:10 18:10 WBC 9.8 RBC 4.53 L Hgb 11.7 L Hct 35.3 L MCV 78.0 L MCH 25.8 L MCHC 33.1 RDW 16.7 H Plt Count 354 MPV 7.6 Neut # (Auto) 5.9 Lymph # (Auto) 2.9 [place] # (Auto) 0.8 Eos # (Auto) 0.1 Baso # (Auto) 0.1 Absolute Nucleated RBC 0.00 Nucleated RBC % 0.0 Sodium 138 Potassium 4.3 Chloride 102 Carbon Dioxide 27 Anion Gap 9.0 BUN 19 Creatinine 1.3 H Estimated GFR (MDRD) 60 L Glucose 94 Calcium 9.3 Total Bilirubin 0.4 AST 21 ALT 18 Alkaline Phosphatase 68 Total Protein 8.0 Albumin 3.7 Globulin 4.3 H Albumin/Globulin Ratio 0.9 L Lipase 45 - Rads (name of study) abd CT Radiology: Prelim report reviewed (Small amount of free fluid in the left lower abdomen without any particular inflammation at the anastomosis site. There is no free air. The abdominal wall in the left lower abdomen shows a localized area of fluid collection about 3 cm diameter by 2 cm. There is considerable inflammation in the fatty tissue below the surgical wound. There is no air noted.), See rad report PD MEDICAL DECISION MAKING - ED course Complexity details: re-evaluated patient (The nurses remove the surgical julián. There is no dehiscence or drainage from either wound. There is some delay in time and getting the CT scan and results but they gave an opportunity for the IV antibiotics to be working. Given the fluid collection on CT scan that was deep about 3 cm or so below the skin, I contacted Dr. Bhatt, his surgeon and reviewed the results and asked him to come and see the patient for consideration of drainage of the fluid. The most concern would be that this is a pocket of abscess. 's office came in and evaluated the patient and reviewed the films and talked with the patient and opted not to attempt to drainage or opening of the wound at this time. He will be seeing the patient tomorrow in the office and will give the antibiotics and opportunity to work from now into tomorrow. Here in the department the patient states his redness seems to be improving already in the several hours he has been here since the antibiotics.), considered differential (Consider her most likely a postoperative wound infection as the left lower wound is red swollen and tender assisting with infection. The midline wound has slight rounded red spots at the julián consider with inflammation. We will give the patient some IV pain medication anti-inflammatories and antibiotics. Concern would be for a deeper abscess and a CT scan was done. The results of this showed a localized area of fluid in the soft tissue. There is some inflammation apparent but that would be not unreasonable postoperatively and the closure of the colostomy.), d/w patient Departure - Departure Disposition: 01 Home, Self Care Clinical Impression: Wound infection after surgery Condition: Stable Record reviewed to determine appropriate education?: Yes Follow-Up: Ricco Bhatt MD [Provider Admit Priv/Credential] - Prescriptions: Cephalexin [Keflex] 500 mg PO Q6H #28 capsule Oxycodone HCl/Acetaminophen [Percocet 5-325 mg Tablet] 1 each PO Q6H PRN #20 tablet PRN Reason: pain Sulfamethox/Trimeth 800/160 [Bactrim Ds 800/160] 1 each PO BID #14 tablet Comments: Follow-up with Dr. Canela as in the clinic as planned. Cephalexin and trimethoprim sulfa antibiotics as directed for the infection. Continue pain medicines as needed. Discharge Date/Time: 06/23/18 21:46
[2018-06-23] MEDS ORDERED: ONDANSETRON 4 MG/2 ML VIAL IVP STA (17:56)
[2018-06-23] MEDS ORDERED: SODIUM CHLORIDE 0.9% 1,000 ML IV ONE (17:56)
[2018-06-23] MEDS ORDERED: MORPHINE 10 MG/ML VIAL IVP STA (17:56)
[2018-06-23] MEDS ORDERED: ceFAZolin 2 GM/50 ML 2 GM/50 ML BAG IV STA (17:58)
[2018-06-23] MEDS ORDERED: IOVERSOL 320 100 ML VIAL IVP ONE ×3 (18:15→19:50)
[2018-06-23 18:31] LABS: BASOPHILS # (AUTO) 0.1 10^3/uL (0.0-0.1); BASOPHILS % (AUTO) 0.6 %; EOSINOPHILS # (AUTO) 0.1 10^3/uL (0.0-0.7); EOSINOPHILS % (AUTO) 1.4 %; HGB - HEMOGLOBIN 11.7 g/dL (14.0-18.0); LYMPHOCYTES # (AUTO) 2.9 10^3/uL (1.5-3.5); LYMPHOCYTES % (AUTO) 29.2 %; MEAN CORPUSCULAR HEMOGLOBIN 25.8 pg (27.0-31.0); MEAN CORPUSCULAR HGB CONC 33.1 g/dL (32.0-36.0); MEAN PLATELET VOLUME 7.6 fL (7.4-11.4); MONOCYTES # (AUTO) 0.8 10^3/uL (0.0-1.0); MONOCYTES % (AUTO) 7.9 %; NEUTROPHILS # (AUTO) 5.9 10^3/uL (1.5-6.6); NEUTROPHILS % (AUTO) 60.9 %; PLT - PLATELET COUNT 354 10^3/uL (130-450); RED BLOOD COUNT 4.53 10^6/uL (4.70-6.10); RED CELL DISTRIBUTION WIDTH 16.7 % (12.0-15.0); WHITE BLOOD COUNT 9.8 x10^3/uL (4.8-10.8)
[2018-06-23 18:39] LABS: ALBUMIN 3.7 g/dL (3.2-5.5); ALBUMIN/GLOBULIN RATIO 0.9 (1.0-2.2); BILIRUBIN,TOTAL 0.4 mg/dL (0.2-1.0); CALCIUM 9.3 mg/dL (8.5-10.3); CREATININE 1.3 mg/dL (0.6-1.2)
[2018-06-23] MEDS ORDERED: BACITRACIN OINT TOP ONE (19:12)
--- NOTE | 2018-06-23 20:04 | CT Report ---
Reason: post op wound redness/swelling left abd wall Procedure Date: 06/23/2018 Accession Number: [id number] / [id number] Procedure: CT - Abdomen/Pelvis W CPT Code: FULL RESULT: EXAM: CT ABDOMEN AND PELVIS EXAM DATE: 06/23/2018 07:24 PM. CLINICAL HISTORY: Post op wound redness/swelling left abd wall. COMPARISONS: ABDOMEN/PELVIS W/ 06/14/2018 11:45 PM. TECHNIQUE: Routine helical CT imaging was performed through the abdomen and pelvis. IV contrast: CE. Enteric contrast: No. Reconstructions: Coronal and sagittal. In accordance with CT protocol optimization, one or more of the following dose reduction techniques were utilized for this exam: automated exposure control, adjustment of mA and/or KV based on patient size, or use of iterative reconstructive technique. FINDINGS: Lung Bases: There is mild left base atelectasis. Liver: Normal. No masses. Gallbladder/Bile Ducts: Unremarkable. Spleen: There is mild splenomegaly. Pancreas: Normal. Adrenal Glands: Normal. Kidneys: Normal. No masses or hydronephrosis. Peritoneal Cavity/Bowel: There is mild anterior peritoneal fat necrosis. Patient has undergone partial colectomy. No evidence of small bowel obstruction. The appendix is normal. There is a small amount of left lower quadrant free fluid. No evidence of drainable intra-abdominal fluid collection. Pelvic Organs: No acute pelvic organ abnormalities are seen. Vasculature: No acute vascular abnormalities are seen. Bones: No significant abnormality. Other: There is a small amount of focal fluid measuring approximately 3 x 2 x 1.5 cm within the left anterior abdominal wall. There is mild associated fat stranding. IMPRESSION: 1. Interval removal of surgical julián. Deep to the surgical site within the left abdominal wall, there is mild skin thickening and subcutaneous fat stranding, with a small focus of fluid density measuring approximately 3 x 2 x 1.5 cm. 2. Patient has undergone partial colectomy. There is anterior peritoneal mesenteric fat stranding consistent with developing postoperative fat necrosis. 3. There is a small amount of free fluid within the left lower quadrant. There is no evidence of drainable intra-abdominal abscess. No dilated or thick-walled bowel is seen. No evidence of intraperitoneal free air. RADIA
[2018-06-23] MEDS ORDERED: SULFAMETH/TRIMETH DS 800/160 MG TABLET PO STA (20:30)
[2018-06-23] MEDS ORDERED: HYDROmorphone 1 MG/ML CARPUJECT IVP STA (20:58)
[2018-06-23] MEDS ORDERED: KETOROLAC 15 MG/ML VIAL IVP STA (20:59)
[2018-06-23 21:15] VITALS: BP 129/79
== END 2018-06-23 21:46 | disposition home or self-care (01) ==
LOC: ED 17:26
DX: T81.49XA Infection following a procedure, other surgical site, initial encounter (principal)
CPT/HCPCS: 36415; 74177; 80053; 83690; 85025; 96365; 96375; 99283; A9270; J0690; J1170; Q9967

== ENCOUNTER 2018-09-12 17:07 | Emergency (ER) | payer MEDICAID ==
--- NOTE | 2018-09-12 17:45 | ED Physician Documentation ---
History of Present Illness - Stated complaint Stated Complaint: PX IN ABD - Chief complaint Chief Complaint: Abd Pain - History obtained from History obtained from: Patient - Additonal information Additional information: Patient is a 43-year-old male with history of diverticulitis causing colostomy, which has been taken down now presenting withRight-sided abdominal pain for nearly the past day. Patient does report nausea without vomiting. He denies urinary changes, but reports decreased bowel movements with last bowel movement yesterday. Patient also denies fever. No other improving or worsening factors noted. Review of Systems Constitutional: denies: Fever GI: reports: Abdominal Pain, Nausea, Constipation. denies: Vomiting : denies: Dysuria PD PAST MEDICAL HISTORY - Past Medical History Past Medical History: No Cardiovascular: Hypertension Respiratory: Pneumonia, Sleep apnea Neuro: None, Other Endocrine/Autoimmune: None GI: Diverticulitis, Other : Kidney stones HEENT: Chronic vision loss Psych: Depression, Anxiety, ADD/ADHD, Post traumatic stress disorder Musculoskeletal: None Derm: None - Past Surgical History Past Surgical History: Yes General: Bowel surgery - Present Medications Home Medications: Ambulatory Orders Medication Instructions Recorded Confirmed Citalopram Hydrobromide 20 mg PO DAILY 01/06/18 06/08/18 [Citalopram HBr] lamoTRIgine [LaMICtal] 100 mg PO BID 01/06/18 06/08/18 Docusate Sodium 100 mg PO BID 06/01/18 06/08/18 Furosemide 80 mg PO BID 06/01/18 06/08/18 LORazepam [Ativan] 0.5 mg PO Q6H PRN 06/01/18 06/08/18 Lisinopril 20 mg PO DAILY 06/01/18 06/08/18 Metoprolol Tartrate 1.5 tab PO BID 06/01/18 06/08/18 Zolpidem Tartrate [Ambien] 5 - 10 mg PO QPM PRN 06/01/18 06/08/18 HYDROcod/ACETAM 5/325 [[place] 5/325] 1 - 2 ea PO Q4H PRN #30 tablet 06/13/18 Cephalexin [Keflex] 500 mg PO Q6H #28 capsule 06/23/18 Oxycodone HCl/Acetaminophen 1 each PO Q6H PRN #20 tablet 06/23/18 [Percocet 5-325 mg Tablet] Sulfamethox/Trimeth 800/160 1 each PO BID #14 tablet 06/23/18 [Bactrim Ds 800/160] - Allergies Allergies/Adverse Reactions: Allergies Allergy/AdvReac Type Severity Reaction Status Date / Time hydrocodone bitartrate * Allergy Intermediate Hallucinati Verified 09/12/18 17:12 [From Vicodin] ons varenicline [From Chantix] AdvReac Hallucinati Verified 09/12/18 17:12 ons - Social History Does the pt smoke?: No Smoking Status: Never smoker Does the pt drink ETOH?: No Does the pt have substance abuse?: No - Immunizations Immunizations are current?: Yes - POLST Patient has POLST: No PD ED PE NORMAL - Vitals Vital signs reviewed: Yes - General General: Alert and oriented X 3, No acute distress, Well developed/nourished - HEENT HEENT: Atraumatic, Moist mucous membranes - Neck Neck: Supple, no meningeal sign - Cardiac Cardiac: RRR, No murmur - Respiratory Respiratory: No respiratory distress, Clear bilaterally - Abdomen Abdomen: Normal bowel sounds, Soft, Non distended. No: Non tender (Tender throughout but worse in the right lower quadrant. No guarding.) - Derm Derm: Normal color, Warm and dry, No rash - Extremities Extremities: No deformity, No tenderness to palpate - Neuro Neuro: Alert and oriented X 3, No motor deficit, No sensory deficit - Psych Psych: Normal mood, Normal affect Results - Vitals Vitals: Vital Signs - 24 hr 09/12/18 09/12/18 17:08 19:28 Temperature 36.0 C L 36.7 C Heart Rate 87 72 Respiratory 18 18 Rate Blood Pressure 149/93 H 117/79 O2 Saturation 98 97 Oxygen O2 Source Room air - Labs Labs: Laboratory Tests 09/12/18 09/12/18 09/12/18 17:35 17:35 19:18 WBC 8.7 RBC 4.93 Hgb 12.3 L Hct 38.8 L MCV 78.7 L MCH 24.9 L MCHC 31.7 L RDW 15.8 H Plt Count 286 MPV 10.0 Neut # (Auto) 5.7 Lymph # (Auto) 2.3 [place] # (Auto) 0.6 Eos # (Auto) 0.1 Baso # (Auto) 0.0 Absolute Nucleated RBC 0.00 Nucleated RBC % 0.0 Sodium 140 Potassium 3.9 Chloride 105 Carbon Dioxide 24 Anion Gap 11.0 BUN 14 Creatinine 1.2 Estimated GFR (MDRD) 65 L Glucose 121 H Calcium 9.3 Total Bilirubin 0.2 AST 23 ALT 24 Alkaline Phosphatase 74 Total Protein 7.6 Albumin 3.7 Globulin 3.9 Albumin/Globulin Ratio 0.9 L Lipase 29 Urine Color YELLOW Urine Clarity CLEAR Urine pH 6.5 Ur Specific [place] 1.010 Urine Protein NEGATIVE Urine Glucose (UA) NEGATIVE Urine Ketones NEGATIVE Urine Occult Blood NEGATIVE Urine Nitrite NEGATIVE Urine Bilirubin NEGATIVE Urine Urobilinogen 0.2 (NORMAL) Ur Leukocyte Esterase NEGATIVE Ur Microscopic Review NOT INDICATED Urine Culture Comments NOT INDICATED PD MEDICAL DECISION MAKING - ED course Complexity details: reviewed results, re-evaluated patient, considered differential, d/w patient, d/w family, d/w energy consultant ED course: Patient presenting with generalized right-sided abdominal pain.Patient started on IV fluids, as well as nausea and pain medication. Considering gallbladder disease, pancreatitis, appendicitis although no specific Albarran sign or McBurney's point tenderness present. Lower suspicion for GERD, PUD, gastritis, diverticulitis, small bowel obstruction, renal disease, UTI, but considered. Screening lab work returned relatively unremarkable including no significant leukocytosis, acute kidney injury, electrolyte disturbance. Urinalysis did not reflect presence of blood or infection. CT abdomen/pelvis was also relatively unremarkable except for incidental finding of mesenteric fat necrosis on the left side, likely from his prior surgeries. Contacted general surgery about this incidental finding who reported that as there is no abscess or other complication there is no particular intervention at this time and likely this tissue would be reabsorbed. Discussed results and recommendations with patient including incidental finding and general surgery consult. Also described supportive cares, diet and hydration recommendations, return precautions, appropriate follow-up. Patient voiced understanding and is comfortable with discharge plan. Departure - Departure Disposition: 01 Home, Self Care Clinical Impression: Abdominal pain Qualifiers: Abdominal location: right lower quadrant Qualified Code(s): R10.31 - Right lower quadrant pain Condition: Good Instructions: ED Abdominal Pain Unkn Cause Follow-Up: Dawna Wylie ARNP [Primary Care Provider] - Within 3 Days Comments: Recommend ibuprofen/Tylenol as needed for pain relief. Recommend hydration with Powerade/Gatorade, bland diet advancing as tolerated. Please follow-up with primary care physician in next 2 to 3 days and return to ED sooner if experience worsening symptoms or you have other concerns.
[2018-09-12 17:46] LABS: BASOPHILS % (AUTO) 0.2 %; EOSINOPHILS # (AUTO) 0.1 10^3/uL (0.0-0.7); EOSINOPHILS % (AUTO) 1.3 %; HGB - HEMOGLOBIN 12.3 g/dL (14.0-18.0); LYMPHOCYTES # (AUTO) 2.3 10^3/uL (1.5-3.5); LYMPHOCYTES % (AUTO) 25.9 %; MEAN CORPUSCULAR HEMOGLOBIN 24.9 pg (27.0-31.0); MEAN CORPUSCULAR HGB CONC 31.7 g/dL (32.0-36.0); MEAN CORPUSCULAR VOLUME 78.7 fL (80.0-94.0); MONOCYTES # (AUTO) 0.6 10^3/uL (0.0-1.0); MONOCYTES % (AUTO) 7.2 %; NEUTROPHILS # (AUTO) 5.7 10^3/uL (1.5-6.6); NEUTROPHILS % (AUTO) 65.2 %; PLT - PLATELET COUNT 286 10^3/uL (130-450); RED BLOOD COUNT 4.93 10^6/uL (4.70-6.10); RED CELL DISTRIBUTION WIDTH 15.8 % (12.0-15.0); WHITE BLOOD COUNT 8.7 x10^3/uL (4.8-10.8)
[2018-09-12] MEDS ORDERED: SODIUM CHLORIDE 0.9% 1,000 ML IV ONE (17:51)
[2018-09-12] MEDS ORDERED: ONDANSETRON 4 MG/2 ML VIAL IVP STA (17:51)
[2018-09-12] MEDS ORDERED: fentaNYL 100 MCG/2 ML VIAL IVP STA (17:52)
[2018-09-12 17:59] LABS: ALBUMIN 3.7 g/dL (3.2-5.5); ALBUMIN/GLOBULIN RATIO 0.9 (1.0-2.2); BILIRUBIN,TOTAL 0.2 mg/dL (0.2-1.0); CALCIUM 9.3 mg/dL (8.5-10.3); CREATININE 1.2 mg/dL (0.6-1.2); TOTAL PROTEIN 7.6 g/dL (6.7-8.2)
[2018-09-12] MEDS ORDERED: IOVERSOL 320 100 ML VIAL IVP ONE ×2 (18:48→18:57)
--- NOTE | 2018-09-12 19:30 | CT Report ---
Reason: Hx diverticulitis, s/p colostomy takedown, right p Procedure Date: 09/12/2018 Accession Number: [id number] / [id number] Procedure: CT - Abdomen/Pelvis W CPT Code: FULL RESULT: EXAM: CT ABDOMEN AND PELVIS EXAM DATE: 09/12/2018 06:56 PM. CLINICAL HISTORY: Hx diverticulitis, s/p colostomy takedown. COMPARISONS: ABDOMEN/PELVIS W/ 06/23/2018 7:20 PM. TECHNIQUE: Routine helical CT imaging was performed through the abdomen and pelvis. IV contrast: OPTI 320 90 mL. Enteric contrast: No. Reconstructions: Coronal and sagittal. In accordance with CT protocol optimization, one or more of the following dose reduction techniques were utilized for this exam: automated exposure control, adjustment of mA and/or KV based on patient size, or use of iterative reconstructive technique. FINDINGS: Lung Bases: Patchy opacity in the posterior left lung base, which likely represents atelectasis. Liver: The liver is low attenuating, which may represent fatty infiltration. Gallbladder/Bile Ducts: The gallbladder is partially contracted. Spleen: Normal. Pancreas: Normal. Adrenal Glands: Normal. Kidneys: No hydronephrosis or nephrolithiasis. Peritoneal Cavity/Bowel: The patient is status post left hemicolectomy. Surgical anastomosis near the rectosigmoid junction. Nonobstructive bowel gas pattern. The appendix is well visualized and normal. There is focal inflammation to the anterior left lower abdominal quadrant mesenteric fat, which may represent fat necrosis. Postoperative changes from previous left lower quadrant ostomy. Postoperative changes to the anterior abdominal wall. Pelvic Organs: Unremarkable. Vasculature: Minimal atherosclerosis of the abdominal aorta. No evidence of aneurysm. Bones: No acute abnormality. Other: None. IMPRESSION: Nonobstructive bowel gas pattern. Normal appendix. Postoperative changes from left hemicolectomy. Probable focal mesenteric fat necrosis in the anterior left lower abdominal quadrant. No drainable fluid collections or abscess. Low attenuating in appearance of the liver, which may represent steatosis. RADIA
[2018-09-12 20:10] LABS: BILIRUBIN,URINE NEGATIVE (NEGATIVE); GLUCOSE, URINE (UA) NEGATIVE (NEGATIVE); KETONES,URINE (UA) NEGATIVE (NEGATIVE); LEUKOCYTE ESTERASE, URINE NEGATIVE (NEGATIVE); NITRITE,URINE NEGATIVE (NEGATIVE); OCCULT BLOOD,URINE NEGATIVE (NEGATIVE); PH,URINE 6.5 PH (5.0-7.5); PROTEIN,URINE NEGATIVE (NEGATIVE); UROBILINOGEN,URINE 0.2 (NORMAL) E.U./dL (NORMAL)
[2018-09-12 20:14] LABS: CLARITY,URINE CLEAR (CLEAR)
[2018-09-12 21:12] VITALS: BP 120/88
== END 2018-09-12 21:12 | disposition home or self-care (01) ==
LOC: ED 17:07
DX: R10.31 Right lower quadrant pain (principal); I10 Essential (primary) hypertension
CPT/HCPCS: 36415; 74177; 80053; 81003; 83690; 85025; 96360; 96361; 99283; 99284; Q9967; 81001; 87086

== ENCOUNTER 2019-01-22 12:28 | Emergency (ER) | payer MEDICAID ==
[2019-01-22 12:46] VITALS: BP 131/68
[2019-01-22 13:03] LABS: BILIRUBIN,URINE NEGATIVE (NEGATIVE); GLUCOSE, URINE (UA) NEGATIVE (NEGATIVE); KETONES,URINE (UA) NEGATIVE (NEGATIVE); LEUKOCYTE ESTERASE, URINE NEGATIVE (NEGATIVE); NITRITE,URINE NEGATIVE (NEGATIVE); OCCULT BLOOD,URINE NEGATIVE (NEGATIVE); PROTEIN,URINE NEGATIVE (NEGATIVE); UROBILINOGEN,URINE 0.2 (NORMAL) E.U./dL (NORMAL)
[2019-01-22 13:06] LABS: CLARITY,URINE CLEAR (CLEAR)
== END 2019-01-22 13:08 | disposition left against medical advice (07) ==
LOC: ED 12:28
DX: Z53.21 Procedure and treatment not carried out due to patient leaving prior to being seen by health care provider (principal)
CPT/HCPCS: 81001; 81003; 87086

== ENCOUNTER 2019-01-26 19:31 | Outpatient (CLI) | payer MEDICAID ==
--- NOTE | 2019-01-26 22:39 | Ultrasound Report ---
Reason: ABD PAIN Procedure Date: 01/26/2019 Accession Number: [id number] / [id number] Procedure: US - Abdomen Complete CPT Code: Final Report FULL RESULT: EXAM: ABDOMEN ULTRASOUND EXAM DATE: 01/26/2019 09:52 PM. CLINICAL HISTORY: Abdominal pain. COMPARISON: None. TECHNIQUE: Real-time scanning was performed with static images obtained. FINDINGS: Technically difficult exam due to body habitus. Liver: Diffuse increased echogenicity of the liver. No definite masses. 17.9 cm. Main portal vein flow: Hepatopetal. Gallbladder: Normal. No stones, wall thickening, or sonographic Albarran's sign. Biliary System: Common bile duct measures 4 mm. No intrahepatic or extrahepatic ductal dilatation. Pancreas: Obscured by overlying bowel gas. Kidneys: Right: 10.5 cm longitudinally. Normal. No contour-deforming mass, stones, or hydronephrosis. Left: 10.7 cm longitudinally. Normal. No contour-deforming mass, stones, or hydronephrosis. Spleen: Borderline splenomegaly. 12.7 x 5.6 x 10 cm. Aorta and Inferior Vena Cava: Abdominal aorta unremarkable. IVC not well visualized. Other: None. IMPRESSION: 1. Technically difficult exam due to body habitus and large amount of bowel gas. 2. No acute finding sonographically. 3. Diffuse increased echogenicity of the liver likely secondary to hepatic steatosis. 4. Borderline splenomegaly. RADIA
== END 2019-01-26 19:32 | disposition home or self-care (01) ==
LOC: DI 19:31
PROVIDERS: ATTEND Nurse Practitioner Gerontology
DX: R10.9 Unspecified abdominal pain (principal)
CPT/HCPCS: 76700

== ENCOUNTER 2019-10-19 08:16 | Outpatient (CLI) | payer MEDICAID ==
[2019-10-19 11:40] LABS: BASOPHILS % (AUTO) 0.2 %; EOSINOPHILS # (AUTO) 0.1 10^3/uL (0.0-0.7); EOSINOPHILS % (AUTO) 1.4 %; HGB - HEMOGLOBIN 15.2 g/dL (14.0-18.0); LYMPHOCYTES # (AUTO) 3.3 10^3/uL (1.5-3.5); LYMPHOCYTES % (AUTO) 39.4 %; MEAN CORPUSCULAR VOLUME 85.1 fL (80.0-94.0); MEAN PLATELET VOLUME 10.7 fL (7.4-11.4); MONOCYTES # (AUTO) 0.5 10^3/uL (0.0-1.0); NEUTROPHILS # (AUTO) 4.4 10^3/uL (1.5-6.6); NEUTROPHILS % (AUTO) 52.6 %; PLT - PLATELET COUNT 228 10^3/uL (130-450); RED BLOOD COUNT 5.42 10^6/uL (4.70-6.10); RED CELL DISTRIBUTION WIDTH 13.8 % (12.0-15.0); WHITE BLOOD COUNT 8.3 x10^3/uL (4.8-10.8)
[2019-10-19 12:06] LABS: ALBUMIN/GLOBULIN RATIO 1.2 (1.0-2.2); ALKALINE PHOSPHATASE 69 IU/L (42-121); ALT ALANINE AMINOTRANSFERASE 34 IU/L (10-60); AST ASPARTATE AMINOTRANSFERASE 28 IU/L (10-42); BILIRUBIN,TOTAL 0.5 mg/dL (0.2-1.0); BUN - BLOOD UREA NITROGEN 15 mg/dL (6-20); CALCIUM 9.1 mg/dL (8.5-10.3); CARBON DIOXIDE - CO2 25 mmol/L (21-32); CHLORIDE 102 mmol/L (101-111); CHOL/HDL RATIO 3.9 (<5.0); CHOLESTEROL 141 mg/dL; CREATININE 1.1 mg/dL (0.6-1.2); GLUCOSE 98 mg/dL (70-100); HDL CHOLESTEROL 36 mg/dL; LDL CHOLESTEROL,CALCULATED 82 mg/dL; LDL/HDL RATIO 2.3 (<3.6); SODIUM 136 mmol/L (135-145); TOTAL PROTEIN 7.4 g/dL (6.7-8.2); VLDL CHOLESTEROL 23 mg/dL
[2019-10-19 13:53] LABS: HEMOGLOBIN A1c% 5.8 % (4.27-6.07)
== END 2019-10-19 23:59 | disposition home or self-care (01) ==
LOC: LAB.WCP 08:16
PROVIDERS: ATTEND Family Medicine
DX: I10 Essential (primary) hypertension (principal); E78.5 Hyperlipidemia, unspecified; R73.9 Hyperglycemia, unspecified
CPT/HCPCS: 36415; 80050; 80061; 83036; 83721

== ENCOUNTER 2020-02-04 06:21 | Emergency (ER) | payer MEDICAID ==
[2020-02-04] MEDS ORDERED: SODIUM CHLORIDE 0.9% 1,000 ML IV STA (06:48)
[2020-02-04] MEDS ORDERED: KETOROLAC 30 MG/ML VIAL IVP STA (06:48)
[2020-02-04 06:52] LABS: BASOPHILS # (AUTO) 0.1 10^3/uL (0.0-0.1); BASOPHILS % (AUTO) 0.5 %; EOSINOPHILS # (AUTO) 0.2 10^3/uL (0.0-0.7); EOSINOPHILS % (AUTO) 1.9 %; HGB - HEMOGLOBIN 14.7 g/dL (14.0-18.0); LYMPHOCYTES # (AUTO) 3.1 10^3/uL (1.5-3.5); LYMPHOCYTES % (AUTO) 31.2 %; MEAN CORPUSCULAR HEMOGLOBIN 27.5 pg (27.0-31.0); MEAN CORPUSCULAR HGB CONC 32.2 g/dL (32.0-36.0); MEAN CORPUSCULAR VOLUME 85.6 fL (80.0-94.0); MEAN PLATELET VOLUME 9.9 fL (7.4-11.4); MONOCYTES # (AUTO) 0.6 10^3/uL (0.0-1.0); MONOCYTES % (AUTO) 6.4 %; NEUTROPHILS # (AUTO) 5.9 10^3/uL (1.5-6.6); NEUTROPHILS % (AUTO) 59.7 %; PLT - PLATELET COUNT 202 10^3/uL (130-450); RED BLOOD COUNT 5.34 10^6/uL (4.70-6.10); RED CELL DISTRIBUTION WIDTH 14.3 % (12.0-15.0); WHITE BLOOD COUNT 9.9 x10^3/uL (4.8-10.8)
[2020-02-04 06:53] LABS: BILIRUBIN,URINE NEGATIVE (NEGATIVE); GLUCOSE, URINE (UA) NEGATIVE (NEGATIVE); KETONES,URINE (UA) NEGATIVE (NEGATIVE); LEUKOCYTE ESTERASE, URINE NEGATIVE (NEGATIVE); NITRITE,URINE NEGATIVE (NEGATIVE); OCCULT BLOOD,URINE NEGATIVE (NEGATIVE); PROTEIN,URINE NEGATIVE (NEGATIVE); UROBILINOGEN,URINE 0.2 (NORMAL) E.U./dL (NORMAL)
[2020-02-04 06:56] LABS: CLARITY,URINE CLEAR (CLEAR)
--- NOTE | 2020-02-04 07:00 | ED Physician Documentation ---
PD HPI ABD PAIN - Stated complaint Stated Complaint: BACK PX - Chief complaint Chief Complaint: Abd Pain - History obtained from History obtained from: Patient - History of Present Illness Timing - onset: Enter time (0500), Today Timing - duration: Minutes Timing - details: Abrupt onset, Still present Pain level max: 7 Pain level now: 7 Quality: Sharp, Pain Location: RUQ Radiation: Right flank Improved by: Other (nothing) Worsened by: Other (nothing) Associated symptoms: No: Fever, Nausea, Vomiting Similar symptoms before: Diagnosis (kidney stone) Recently seen: Not recently seen - Additional information Additional information: 44-year-old male with a history of diverticulitis and a history of kidney stones awoke this morning at 5:00 with acute right flank pain similar to what he has had with kidney stone previously. He had no modifying factors and comes to the emergency department for treatment. He has a 7 out of 10 pain.He has not had any vomiting. Review of Systems Constitutional: denies: Fever, Chills Ears: denies: Ear pain Nose: denies: Congestion Throat: denies: Sore throat Cardiac: denies: Chest pain / pressure, Palpitations Respiratory: denies: Dyspnea, Cough GI: reports: Abdominal Pain. denies: Nausea, Vomiting, Constipation, Diarrhea : denies: Dysuria, Frequency Skin: denies: Rash Musculoskeletal: reports: Back pain. denies: Neck pain, Extremity pain Neurologic: denies: Generalized weakness, Focal weakness, Numbness PD PAST MEDICAL HISTORY - Past Medical History Past Medical History: Yes Cardiovascular: Hypertension Respiratory: Pneumonia, Sleep apnea Neuro: None, Other Endocrine/Autoimmune: None GI: Diverticulitis, Other : Kidney stones HEENT: Chronic vision loss Psych: Depression, Anxiety, ADD/ADHD, Post traumatic stress disorder Musculoskeletal: None Derm: None - Past Surgical History Past Surgical History: Yes General: Bowel surgery - Present Medications Home Medications: Ambulatory Orders Medication Instructions Recorded Confirmed Citalopram Hydrobromide 20 mg PO DAILY 01/06/18 02/04/20 [Citalopram HBr] lamoTRIgine [LaMICtal] 100 mg PO BID 01/06/18 02/04/20 LORazepam [Ativan] 0.5 mg PO Q6H PRN 06/01/18 02/04/20 Metoprolol Tartrate 1.5 tab PO BID 06/01/18 02/04/20 lisinopriL [Lisinopril] 20 mg PO DAILY 06/01/18 02/04/20 - Allergies Allergies/Adverse Reactions: Allergies Allergy/AdvReac Type Severity Reaction Status Date / Time hydrocodone bitartrate * Allergy Intermediate Hallucinati Verified 02/04/20 06:32 [From Vicodin] ons varenicline [From Chantix] AdvReac Hallucinati Verified 02/04/20 06:32 ons - Social History Does the pt smoke?: No Smoking Status: Never smoker Does the pt drink ETOH?: No Does the pt have substance abuse?: No - Immunizations Immunizations are current?: Yes - POLST Patient has POLST: No PD ED PE NORMAL - Vitals Vital signs reviewed: Yes (hypertensive ) - General General: Alert and oriented X 3, No acute distress, Well developed/nourished - HEENT HEENT: Atraumatic, PERRL, EOMI - Neck Neck: Supple, no meningeal sign - Cardiac Cardiac: RRR, No murmur - Respiratory Respiratory: No respiratory distress, Clear bilaterally - Abdomen Abdomen: Normal bowel sounds, Soft, Non tender, Non distended, No organomegaly - Back Back: No CVA TTP, No spinal TTP - Derm Derm: Normal color, Warm and dry, No rash - Extremities Extremities: No deformity, No edema - Neuro Neuro: Alert and oriented X 3, half section ironer 2-12 intact, No motor deficit, No sensory deficit, Normal speech Eye Opening: Spontaneous Motor: Obeys Commands Verbal: Oriented GCS Score: 15 - Psych Psych: Normal mood, Normal affect Results - Vitals Vitals: Vital Signs - 24 hr 02/04/20 02/04/20 06:25 06:31 Temperature 36.3 C L 36.3 C L Heart Rate 81 81 Respiratory 16 16 Rate Blood Pressure 146/83 H 146/83 H O2 Saturation 100 100 Oxygen O2 Source Room air - Labs Labs: Laboratory Tests 02/04/20 02/04/20 02/04/20 06:30 06:46 06:46 WBC 9.9 RBC 5.34 Hgb 14.7 Hct 45.7 MCV 85.6 MCH 27.5 MCHC 32.2 RDW 14.3 Plt Count 202 MPV 9.9 Neut # (Auto) 5.9 Lymph # (Auto) 3.1 [place] # (Auto) 0.6 Eos # (Auto) 0.2 Baso # (Auto) 0.1 Absolute Nucleated RBC 0.00 Nucleated RBC % 0.0 Sodium 139 Potassium 4.2 Chloride 101 Carbon Dioxide 26 Anion Gap 12.0 BUN 18 Creatinine 1.0 Estimated GFR (MDRD) 80 L Glucose 110 H Calcium 9.1 Total Bilirubin 0.8 AST 33 ALT 48 Alkaline Phosphatase 72 Total Protein 8.0 Albumin 4.1 Globulin 3.9 Albumin/Globulin Ratio 1.1 Lipase 34 Urine Color YELLOW Urine Clarity CLEAR Urine pH 6.0 Ur Specific [place] >=1.030 H Urine Protein NEGATIVE Urine Glucose (UA) NEGATIVE Urine Ketones NEGATIVE Urine Occult Blood NEGATIVE Urine Nitrite NEGATIVE Urine Bilirubin NEGATIVE Urine Urobilinogen 0.2 (NORMAL) Ur Leukocyte Esterase NEGATIVE Ur Microscopic Review NOT INDICATED Urine Culture Comments NOT INDICATED Procedures - Bedside sono Bedside sono by EMP: With use bedside ultrasound the right kidney is imaged there is no significant hydronephrosis and the kidney is sonographically nontender PD MEDICAL DECISION MAKING - ED course Complexity details: reviewed old records, reviewed results, re-evaluated patient, considered differential, d/w patient ED course: 44-year-old male with a history of kidney stones presents today with what he feels like is similar to what he had before with kidney stone and no stone is found on CT examination. He has some improvement in his pain with use of Toradol intravenously is given a liter of saline and diagnosed with flank pain. Departure - Departure Disposition: 01 Home, Self Care Clinical Impression: Flank pain Constipation Qualifiers: Constipation type: unspecified constipation type Qualified Code(s): K59.00 - Constipation, unspecified Condition: Stable Instructions: ED Flank Pain Uncertain Cause, ED Constipation Follow-Up: DANNY ROBERTS MD [Primary Care Provider] -
[2020-02-04 07:07] LABS: ALBUMIN 4.1 g/dL (3.2-5.5); ALBUMIN/GLOBULIN RATIO 1.1 (1.0-2.2); BILIRUBIN,TOTAL 0.8 mg/dL (0.2-1.0); CALCIUM 9.1 mg/dL (8.5-10.3)
[2020-02-04 07:33] VITALS: BP 133/79
--- NOTE | 2020-02-04 08:33 | CT Report ---
PROCEDURE: Abdomen/Pelvis WO INDICATIONS: R flank pain TECHNIQUE: Noncontrast 5 mm thick sections acquired from the diaphragms to the symphysis. 5 mm coronal and sagi ttal reformats were then performed. For radiation dose reduction, the following was used: automated exposure control, adjustment of mA and/or kV according to patient size. COMPARISON: None. FINDINGS: Image quality: Excellent. ABDOMEN: Lung bases: Lung bases are clear. Heart size is normal. Solid organs: Spleen unremarkable. Hepatic steatosis is present with focal fatty sparing in the gallb ladder fossa. Gallbladder unremarkable Pancreas is normal in contours. No adrenal nodules. Kidney s are normal in size, without hydronephrosis or nephrolithiasis. Peritoneum and bowel: Unenhanced bowel loops demonstrate normal wall thickness and caliber. No free fluid or air. Surgical anastomosis seen in the region of the sigmoid colon. Normal appearance of th e appendix. Nodes and vessels: No retroperitoneal or mesenteric adenopathy by size criteria. Aorta and inferior vena cava are normal in caliber. Scattered vascular calcifications are present in the aorta. Small fat-containing periumbilical hernia. Presumed postsurgical changes from laparoscopy involving t he anterior abdominal wall PELVIS: Genitourinary: Bladder wall thickness is normal. Miscellaneous: No inguinal hernias or adenopathy. Bones: No suspicious bony lesions. No vertebral body compression fractures. IMPRESSION: No acute abnormality. No urolithiasis. No evidence of urinary obstruction. Postsurgical changes as described. Findings are concordant with the preliminary study interpretation provided at the time of the study. Additional chronic and incidental findings as above. Reviewed by: Garfield Anders MD on 02/04/2020 8:32 AM PST Approved by: Garfield Anders MD on 02/04/2020 8:32 AM PST Station ID: [id number]
== END 2020-02-04 07:46 | disposition home or self-care (01) ==
LOC: ED 06:21
DX: R10.11 Right upper quadrant pain (principal); K59.00 Constipation, unspecified; I10 Essential (primary) hypertension
CPT/HCPCS: 36415; 74176; 80053; 81001; 81003; 83690; 85025; 87086; 96361; 96374; 99284

== ENCOUNTER 2020-02-25 03:41 | Emergency (ER) | payer MEDICAID ==
--- NOTE | 2020-02-25 03:46 | ED Physician Documentation ---
PD HPI CHEST PAIN - Stated complaint Stated Complaint: CHEST PRESSURE/COUGH - History obtained from History obtained from: Patient - History of Present Illness Timing - onset: Last night Timing - details: Abrupt onset Pain level now: 0 Quality: Aching Location: Other (generalized) Associated symptoms: No: Shortness of air Recently seen: Not recently seen - Additional information Additional information: c/o chills, myalgias, nonproductive cough, generalized chest aching, generalized headache, fatigue. symptoms started last night. Patient recently received COVID- 19 vaccination. He says he received vaccinations on 02/15 as well as 02/22. Patient says he mistakenly reported that he had received the first vaccination on 02/04 and it was only after he received the second vaccination (on 02/22) that it was realized his first vaccination had actually been administered on 02/15 (and not 02/04). Review of Systems Constitutional: reports: Fever, Chills, Myalgias, Fatigue Throat: denies: Sore throat Cardiac: reports: Chest pain / pressure Respiratory: reports: Cough. denies: Dyspnea Neurologic: reports: Headache PD PAST MEDICAL HISTORY - Past Medical History Cardiovascular: Hypertension Respiratory: Pneumonia, Sleep apnea Neuro: None, Other Endocrine/Autoimmune: None GI: Diverticulitis, Other : Kidney stones HEENT: Chronic vision loss Psych: Depression, Anxiety, ADD/ADHD, Post traumatic stress disorder Musculoskeletal: None Derm: None - Past Surgical History Past Surgical History: Yes General: Bowel surgery - Present Medications Home Medications: Ambulatory Orders Medication Instructions Recorded Confirmed Citalopram Hydrobromide 20 mg PO DAILY 01/06/18 02/25/20 [Citalopram HBr] lamoTRIgine [LaMICtal] 100 mg PO BID 01/06/18 02/25/20 LORazepam [Ativan] 0.5 mg PO Q6H PRN 06/01/18 02/25/20 Metoprolol Tartrate 1.5 tab PO BID 06/01/18 02/25/20 lisinopriL [Lisinopril] 20 mg PO DAILY 06/01/18 02/25/20 - Allergies Allergies/Adverse Reactions: Allergies Allergy/AdvReac Type Severity Reaction Status Date / Time hydrocodone bitartrate * Allergy Intermediate Hallucinati Verified 02/25/20 03:58 [From Vicodin] ons varenicline [From Chantix] AdvReac Hallucinati Verified 02/25/20 03:58 ons - Social History Does the pt smoke?: No Smoking Status: Never smoker Does the pt drink ETOH?: No Does the pt have substance abuse?: No - Immunizations Immunizations are current?: Yes - POLST Patient has POLST: No PD ED PE NORMAL - Vitals Vital signs reviewed: Yes - General General: Alert and oriented X 3, No acute distress, Well developed/nourished - HEENT HEENT: Moist mucous membranes - Neck Neck: Supple, no meningeal sign - Cardiac Cardiac: RRR, No murmur - Respiratory Respiratory: No respiratory distress, Clear bilaterally - Neuro Neuro: Alert and oriented X 3 Eye Opening: Spontaneous Motor: Obeys Commands Verbal: Oriented GCS Score: 15 Results - Vitals Vitals: Vital Signs - 24 hr 02/25/20 02/25/20 02/25/20 03:45 05:00 05:47 Temperature 37.9 C 38.1 C H 37.8 C Heart Rate 93 102 H 92 Respiratory 17 20 20 Rate Blood Pressure 120/64 147/74 H 145/72 H O2 Saturation 98 100 98 Oxygen O2 Source Room air - Labs Labs: Laboratory Tests 02/25/20 02/25/20 02/25/20 04:05 04:05 04:10 WBC 7.4 RBC 5.21 Hgb 14.5 Hct 44.5 MCV 85.4 MCH 27.8 MCHC 32.6 RDW 14.2 Plt Count 186 MPV 10.3 Neut # (Auto) 5.9 Lymph # (Auto) 1.0 L [place] # (Auto) 0.4 Eos # (Auto) 0.1 Baso # (Auto) 0.0 Absolute Nucleated RBC 0.00 Nucleated RBC % 0.0 Sodium 138 Potassium 4.3 Chloride 100 L Carbon Dioxide 26 Anion Gap 12.0 BUN 18 Creatinine 1.2 Estimated GFR (MDRD) 65 L Glucose 169 H Calcium 9.0 Nasal Adenovirus (PCR) NOT DETECTED Nasal B. parapertussis DNA (PCR) NOT DETECTED Nasal Coronavir 229E PCR NOT DETECTED Nasal Coronavir HKU1 PCR NOT DETECTED Nasal Coronavir NL63 PCR NOT DETECTED Nasal Coronavir OC43 PCR NOT DETECTED Nasal Enterovir/Rhinovir PCR NOT DETECTED Nasal Influenza B PCR NOT DETECTED Nasal Influenza A PCR NOT DETECTED Nasal Parainfluen 1 PCR NOT DETECTED Nasal Parainfluen 2 PCR NOT DETECTED Nasal Parainfluen 3 PCR NOT DETECTED Nasal Parainfluen 4 PCR NOT DETECTED Nasal RSV (PCR) NOT DETECTED Nasal B.pertussis DNA PCR NOT DETECTED Nasal C.pneumoniae (PCR) NOT DETECTED Ras Human Metapneumo PCR NOT DETECTED Nasal M.pneumoniae (PCR) NOT DETECTED Nasal SARS-CoV-2 (PCR) NOT DETECTED - Rads (name of study) chest xray Radiology: Prelim report reviewed, See rad report PD MEDICAL DECISION MAKING - ED course Complexity details: reviewed results, re-evaluated patient, considered differential, d/w patient Departure - Departure Disposition: 01 Home, Self Care Clinical Impression: Febrile illness Condition: Good Instructions: ED Fever Unconf Cause Follow-Up: DANNY ROBERTS MD [Primary Care Provider] - Within 3 Days Forms: Activity restrictions Discharge Date/Time: 02/25/20 05:47
[2020-02-25] MEDS ORDERED: ACETAMINOPHEN 325 MG TABLET PO STA (04:14)
[2020-02-25 04:18] LABS: BASOPHILS % (AUTO) 0.3 %; EOSINOPHILS # (AUTO) 0.1 10^3/uL (0.0-0.7); EOSINOPHILS % (AUTO) 1.1 %; HGB - HEMOGLOBIN 14.5 g/dL (14.0-18.0); MEAN CORPUSCULAR HEMOGLOBIN 27.8 pg (27.0-31.0); MEAN CORPUSCULAR HGB CONC 32.6 g/dL (32.0-36.0); MEAN CORPUSCULAR VOLUME 85.4 fL (80.0-94.0); MEAN PLATELET VOLUME 10.3 fL (7.4-11.4); MONOCYTES # (AUTO) 0.4 10^3/uL (0.0-1.0); MONOCYTES % (AUTO) 5.7 %; NEUTROPHILS # (AUTO) 5.9 10^3/uL (1.5-6.6); NEUTROPHILS % (AUTO) 78.6 %; PLT - PLATELET COUNT 186 10^3/uL (130-450); RED BLOOD COUNT 5.21 10^6/uL (4.70-6.10); RED CELL DISTRIBUTION WIDTH 14.2 % (12.0-15.0); WHITE BLOOD COUNT 7.4 x10^3/uL (4.8-10.8)
[2020-02-25 04:24] LABS: CREATININE 1.2 mg/dL (0.6-1.2)
[2020-02-25 05:06] LABS: C. PNEUMONIAE- RESP PCR PANEL NOT DETECTED
[2020-02-25 05:48] VITALS: BP 145/72
--- NOTE | 2020-02-25 09:01 | XRAY Report ---
PROCEDURE: Chest 1 View X-Ray INDICATIONS: chest pain TECHNIQUE: One view of the chest was acquired. COMPARISON: 04/20/2018, 07/06/2013 FINDINGS: Surgical changes and devices: None. Lungs and pleura: No pleural effusions or pneumothorax. Lungs are clear. Mediastinum: Mediastinal contours appear normal. Heart size is normal. Bones and chest wall: No suspicious bony lesions. Overlying soft tissues appear unremarkable. IMPRESSION: Portable chest study within normal limits. Note: No significant discrepancy from the preliminary report. Reviewed by: Denis Santos MD on 02/25/2020 8:00 AM [facility] Approved by: Denis Santos MD on 02/25/2020 8:00 AM [facility] Station ID: [id number]
== END 2020-02-25 05:47 | disposition home or self-care (01) ==
LOC: ED 03:41
DX: R50.9 Fever, unspecified (principal); I10 Essential (primary) hypertension; Z20.828 Contact with and (suspected) exposure to other viral communicable diseases
CPT/HCPCS: 0202U; 36415; 71045; 80048; 85025; 93005; 99282; 99284; A9270

== ENCOUNTER 2020-08-11 05:54 | Emergency (ER) | payer OTHER, MEDICAID ==
[2020-08-11 06:05] VITALS: BP 144/83
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
[2020-08-11] MEDS ORDERED: IBUPROFEN 600 MG TABLET PO STA (06:26)
== END 2020-08-11 06:43 | disposition home or self-care (01) ==
LOC: ED 05:54
DX: S00.83XA Contusion of other part of head, initial encounter (principal); S01.512A Laceration without foreign body of oral cavity, initial encounter; Y04.2XXA Assault by strike against or bumped into by another person, initial encounter; Y92.238 Other place in hospital as the place of occurrence of the external cause; Y99.0 Civilian activity done for income or pay; I10 Essential (primary) hypertension
CPT/HCPCS: 99282; A9270

== ENCOUNTER 2020-08-29 09:41 | Outpatient (CLI) | payer MEDICAID ==
[2020-08-29 10:33] VITALS: BP 144/92
--- NOTE | 2020-08-29 10:33 | SLEEP CARE CONSULTATION ---
Information from patient questionnaire entered by Vannessa Tobin. I have reviewed and concur with the information entered by Vannessa Tobin. This document represents the service I personally performed and the decisions made by me, Madeline Moe ARNP. History of Present Illness Service Date and Time: 08/29/2020 0941 Reason for Visit: New patient, Previously diagnosed sleep apnea (moderate - AHI - 20.0), sleep apnea on CPAP therapy, Re-establish care (last seen 2015) Chief Complaint: reports: Snoring, Excessive daytime sleepiness Date of Onset: forever Usual bedtime: 10 am, sometimes 1 am Time it takes to fall asleep: 30 minutes Snores at night: Yes Observed to quit breathing while asleep: Yes Sleeps alone due to snoring: No Number of times waking at night: unsure Reasons for waking at night: reports: Bathroom Toss, Turn, or Twitch while sleeping: Yes Usually gets out of bed at: 8: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 He returns today because his encouraged him to do so. He has not been consistently using his CPAP. - Parasomnia Symptoms Ever been unable to move upon waking from sleep: No Walks in sleep: No Talks in sleep: No Ever acted out dreams in sleep: No Ever felt weak in the knees when startled or emotional: No Bothered by creepy, crawly, restless sensations in legs: No Problems with memory or concentration: Yes CPAP Compliance Data - Data Reviewed with Patient Average duration of nightly device use: 1 hr 30 min Compliance rate %: 23.3 Current pressure setting (cmH2O): 8 Humidity settin Average residual AHI: 6.6 Average large leak: 0 Compliance data discussion: He DME supplier was [employer]. He had not got any supplies for 2.5 to 3 years. He uses a full face mask. He has not been able to change it out for years. He has noted some particulates in the hose of his machine. He has also had a chemical "taste" on his mouth a few times. He has been using a [employer] that was last updated in 2014. Subjective Missed days of use due to: reports: other (fatigue when coming home and goes to sleep without CPAP) Patient concerns: reports: mask discomfort, air blowing in eyes (occasional), mask leak noise, condensation in mask/hose (in the mask). denies: aerophagia, nasal congestion, dry mouth, nose, throat, epistaxis, other Observed to snore while using device: Yes Current pressure setting perceived as: too low On therapy, patient: reports: sleeping better, awakening more refreshed, more rested overall. 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 Patient is and lives in [place]. Have you smoked in the past 12 months: No Quit date: 7 years ago Alcohol use: No Caffeine use: Yes Caffeine amount and frequency: 4 drinks daily Family History Family history of sleep disordered breathing: No Allergies and Home Medications Drug allergies reviewed: Yes (hydrocodone, varenicline) Home medication list reviewed: Yes Allergy and home medication list: Phentermine Lisinopril Metoprolol Lamictal Ativan Citalopram Review of Systems Weight gain over past 5 years: 60 Cardiovascular: reports: high blood pressure Gastrointestinal: denies: heartburn Neurological: denies: headaches Psychiatric: reports: Attention Deficit Hyperactivity, anxiety, depression, mood disorder Ear/Nose/Throat: reports: wisdom teeth removed Physical Exam Blood Pressure: 144/92 Cuff size: wrist Heart Rate: 83 O2 Saturation: 98 Height: 5 ft 3 in Weight: 275 lb Body Mass Index: 48.6 BMI Classification: Morbidly Obese Impression and Plan 1. Obstructive Sleep Apnea-Hypopnea Syndrome, moderate, with poor treatment compliance and fair apnea control with elevated residual AHI. On CPAP therapy, the patient has better sleep quality and is more rested overall. Patient has not been consistently using his device but does want to continue its use. I informed him of the [employer] recall and he told me that there was some black particulates as well as a chemical taste that he noticed in his mouth over the last several months. He was advised to discontinue use of this device. He also states he has had times where the machine just shut off, so it is also malfunctioning. He does need a new machine as well as a new DME company. I will write a prescription to transfer to a new DME and to update his machine and supplies. He was notified that he does need to get his compliance up to be able to obtain the supplies and machine. He voiced understanding and agreement with this plan of care. I also advised him to go on to the [employer] website to register his machine. He voiced understanding and stated that he would. For the last month and a half the patient has been taking a medication to try to lose weight. I encouraged him to continue his efforts to lose weight as this will reduce apneas as well as improve his overall health. He voiced understanding. Patient's apnea severity and rationale for treatment to reduce apnea, improve sleep quality and reduce cardiovascular and cerebrovascular events was reviewed. I also reviewed the benefit of consistent device use of CPAP for hypertension and attention deficit. * Transfer DME * Update machine and supplies * Patient to register his machine on [employer] website * Patient advised not to use machine due to particulates he has noted in tubing * Change auto CPAP pressure to 9 cmH2O * Notify me if snoring with mask or feeling that the pressure is too much or too little * Continue to try to lose weight * Call this office if any problems using CPAP * Return for follow up one month after updating machine, or sooner if concerns arise Counseling Topics: Spare mask, Weight loss health impact Visit Type: In Office Time Spent with Patient (minutes): 35 Provider Statement: I spent 100% of the Face to Face Visit with the patient with greater than 50% spent counseling the patient and coordination of care.
== END 2020-08-29 09:42 | disposition home or self-care (01) ==
LOC: SC 09:41
PROVIDERS: ATTEND Nurse Practitioner Family
DX: G47.33 Obstructive sleep apnea (adult) (pediatric) (principal); E66.01 Morbid (severe) obesity due to excess calories; Z68.42 Body mass index [BMI] 45.0-49.9, adult
CPT/HCPCS: 99203; 99212

== ENCOUNTER 2020-11-06 03:27 | Emergency (ER) | payer MEDICAID ==
[2020-11-06 03:49] LABS: BASOPHILS % (AUTO) 0.4 %; EOSINOPHILS # (AUTO) 0.1 10^3/uL (0.0-0.7); EOSINOPHILS % (AUTO) 1.3 %; HGB - HEMOGLOBIN 14.5 g/dL (14.0-18.0); LYMPHOCYTES # (AUTO) 2.7 10^3/uL (1.5-3.5); LYMPHOCYTES % (AUTO) 29.6 %; MEAN CORPUSCULAR VOLUME 85.1 fL (80.0-94.0); MEAN PLATELET VOLUME 10.1 fL (7.4-11.4); MONOCYTES # (AUTO) 0.6 10^3/uL (0.0-1.0); MONOCYTES % (AUTO) 6.4 %; NEUTROPHILS # (AUTO) 5.7 10^3/uL (1.5-6.6); PLT - PLATELET COUNT 208 10^3/uL (130-450); RED BLOOD COUNT 5.17 10^6/uL (4.70-6.10); RED CELL DISTRIBUTION WIDTH 13.8 % (12.0-15.0); WHITE BLOOD COUNT 9.2 x10^3/uL (4.8-10.8)
[2020-11-06 04:02] LABS: ALBUMIN 3.9 g/dL (3.2-5.5); ALBUMIN/GLOBULIN RATIO 1.1 (1.0-2.2); BILIRUBIN,TOTAL 0.4 mg/dL (0.2-1.0); CALCIUM 8.9 mg/dL (8.5-10.3); POTASSIUM 3.9 mmol/L (3.5-5.0); TOTAL PROTEIN 7.5 g/dL (6.7-8.2)
--- NOTE | 2020-11-06 04:41 | ED Physician Documentation ---
PD HPI CHEST PAIN - Stated complaint Stated Complaint: HEART PALPITATIONS - Chief complaint Chief Complaint: Cardiac - History obtained from History obtained from: Patient - History of Present Illness Timing - onset: Enter time (02:00), Today Timing - details: Abrupt onset Pain level max: 2 Pain level now: 0 Quality: Pain Location: Left neck Radiation: Left upper extremity (left shoulder and left upper anterior chest) Improved by: Nothing Worsened by: Other (no exacerbating factors) Associated symptoms: No: Shortness of air Similar symptoms before: Has not had sx before Recently seen: Not recently seen - Additional information Additional information: c/o left neck pain that radiates to left shoulder and left upper anterior chest. Onset approximately 2 AM. Denies dyspnea. Had clean cardiac angiogram approximately 12 years ago. Review of Systems Cardiac: reports: Chest pain / pressure, Palpitations. denies: Pedal edema Respiratory: reports: Reviewed and negative GI: reports: Reviewed and negative Musculoskeletal: denies: Extremity swelling PD PAST MEDICAL HISTORY - Past Medical History Past Medical History: Yes Cardiovascular: Hypertension Respiratory: Pneumonia, Sleep apnea Neuro: None, Other Endocrine/Autoimmune: None GI: Diverticulitis, Other : Kidney stones HEENT: Chronic vision loss Psych: Depression, Anxiety, ADD/ADHD, Post traumatic stress disorder Musculoskeletal: None Derm: None - Past Surgical History Past Surgical History: Yes General: Bowel surgery - Present Medications Home Medications: Ambulatory Orders Medication Instructions Recorded Confirmed Citalopram Hydrobromide 20 mg PO DAILY 01/06/18 11/06/20 [Citalopram HBr] lamoTRIgine [LaMICtal] 100 mg PO BID 01/06/18 11/06/20 LORazepam [Ativan] 0.5 mg PO Q6H PRN 06/01/18 11/06/20 Metoprolol Tartrate 1.5 tab PO BID 06/01/18 11/06/20 lisinopriL [Lisinopril] 20 mg PO DAILY 06/01/18 11/06/20 - Allergies Allergies/Adverse Reactions: Allergies Allergy/AdvReac Type Severity Reaction Status Date / Time hydrocodone bitartrate * Allergy Intermediate Hallucinati Verified 11/06/20 03:40 [From Vicodin] ons varenicline [From Chantix] AdvReac Hallucinati Verified 11/06/20 03:40 ons - Social History Does the pt smoke?: No Smoking Status: Never smoker Does the pt drink ETOH?: No Does the pt have substance abuse?: No - Immunizations Immunizations are current?: Yes - POLST Patient has POLST: No PD ED PE NORMAL - Vitals Vital signs reviewed: Yes - General General: Alert and oriented X 3, No acute distress, Well developed/nourished - Cardiac Cardiac: RRR, No murmur, No gallop, No rub - Respiratory Respiratory: No respiratory distress, Clear bilaterally - Abdomen Abdomen: Soft, Non tender - Extremities Extremities: No edema Results - Vitals Vitals: Oxygen O2 Source Room air - EKG (time done) No standard instances Rate: Rate (enter#) (83) Rhythm: NSR [place]: Normal Intervals: Normal [place] QRS: Normal Ischemia: Normal ST segments - Labs Labs: Laboratory Tests 11/06/20 11/06/20 11/06/20 03:43 03:43 03:43 WBC 9.2 RBC 5.17 Hgb 14.5 Hct 44.0 MCV 85.1 MCH 28.0 MCHC 33.0 RDW 13.8 Plt Count 208 MPV 10.1 Neut # (Auto) 5.7 Lymph # (Auto) 2.7 [place] # (Auto) 0.6 Eos # (Auto) 0.1 Baso # (Auto) 0.0 Absolute Nucleated RBC 0.00 Nucleated RBC % 0.0 Sodium 137 Potassium 3.9 Chloride 101 Carbon Dioxide 27 Anion Gap 9.0 BUN 16 Creatinine 1.0 Estimated GFR (MDRD) 80 L Glucose 114 H Calcium 8.9 Total Bilirubin 0.4 AST 24 ALT 32 Alkaline Phosphatase 63 Troponin I High Sens 3.2 Total Protein 7.5 Albumin 3.9 Globulin 3.6 Albumin/Globulin Ratio 1.1 Lipase 45 - Rads (name of study) chest xray Radiology: Prelim report reviewed, See rad report PD MEDICAL DECISION MAKING - ED course Complexity details: reviewed results, re-evaluated patient, considered differential, d/w patient Departure - Departure Disposition: 01 Home, Self Care Clinical Impression: Chest pain Qualifiers: Chest pain type: unspecified Qualified Code(s): R07.9 - Chest pain, unspecified Condition: Good Instructions: ED Chest Pain Atypical Unkn Cause Follow-Up: Pk Baldwin MD [Primary Care Provider] - Discharge Date/Time: 11/06/20 05:27
[2020-11-06 05:07] VITALS: BP 135/97
--- NOTE | 2020-11-06 08:57 | XRAY Report ---
PROCEDURE: Chest 1 View X-Ray INDICATIONS: Chest pain TECHNIQUE: One view of the chest was acquired. COMPARISON: Chest x-ray 02/25/2020 FINDINGS: Surgical changes and devices: None. Lungs and pleura: No pleural effusions or pneumothorax. Lungs are clear. Mediastinum: Mediastinal contours appear normal. Heart size is enlarged. Bones and chest wall: No suspicious bony lesions. Overlying soft tissues appear unremarkable. IMPRESSION: No acute pulmonary process. Reviewed by: Rubi Damico MD on 11/06/2020 8:55 AM PDT Approved by: Rubi Damico MD on 11/06/2020 8:55 AM PDT Station ID: [id number]
== END 2020-11-06 05:27 | disposition home or self-care (01) ==
LOC: ED 03:27
DX: R07.9 Chest pain, unspecified (principal)
CPT/HCPCS: 36415; 80053; 83690; 84484; 85025; 93005; 99283; 99284

== ENCOUNTER 2021-04-16 07:49 | Outpatient (CLI) | payer MEDICAID ==
[2021-04-16 12:08] LABS: BASOPHILS % (AUTO) 0.6 %; EOSINOPHILS # (AUTO) 0.1 10^3/uL (0.0-0.7); EOSINOPHILS % (AUTO) 1.6 %; HCT - HEMATOCRIT 45.7 % (42.0-52.0); HGB - HEMOGLOBIN 15.3 g/dL (14.0-18.0); LYMPHOCYTES # (AUTO) 2.5 10^3/uL (1.5-3.5); LYMPHOCYTES % (AUTO) 35.3 %; MEAN CORPUSCULAR HGB CONC 33.5 g/dL (32.0-36.0); MEAN CORPUSCULAR VOLUME 83.5 fL (80.0-94.0); MEAN PLATELET VOLUME 10.7 fL (7.4-11.4); MONOCYTES # (AUTO) 0.4 10^3/uL (0.0-1.0); MONOCYTES % (AUTO) 5.8 %; NEUTROPHILS % (AUTO) 56.4 %; PLT - PLATELET COUNT 208 10^3/uL (130-450); RED BLOOD COUNT 5.47 10^6/uL (4.70-6.10); RED CELL DISTRIBUTION WIDTH 13.9 % (12.0-15.0); WHITE BLOOD COUNT 7.1 x10^3/uL (4.8-10.8)
[2021-04-16 12:23] LABS: ESTIMATED AVERAGE GLUCOSE 126 mg/dL (70-100)
[2021-04-16 12:30] LABS: ALBUMIN 3.9 g/dL (3.2-5.5); ALBUMIN/GLOBULIN RATIO 1.1 (1.0-2.2); ALKALINE PHOSPHATASE 66 IU/L (42-121); ALT ALANINE AMINOTRANSFERASE 31 IU/L (10-60); AST ASPARTATE AMINOTRANSFERASE 22 IU/L (10-42); BILIRUBIN,TOTAL 0.6 mg/dL (0.2-1.0); BUN - BLOOD UREA NITROGEN 19 mg/dL (6-20); CARBON DIOXIDE - CO2 27 mmol/L (21-32); CHLORIDE 99 mmol/L (101-111); CHOL/HDL RATIO 3.6 (<5.0); CHOLESTEROL 152 mg/dL; CREATININE 1.1 mg/dL (0.6-1.2); GFR - MDRD 72 (>89); GLUCOSE 106 mg/dL (70-100); HDL CHOLESTEROL 42 mg/dL; LDL CHOLESTEROL,CALCULATED 91 mg/dL; LDL/HDL RATIO 2.2 (<3.6); POTASSIUM 4.4 mmol/L (3.5-5.0); SODIUM 135 mmol/L (135-145); TOTAL PROTEIN 7.6 g/dL (6.7-8.2); TRIGLYCERIDES 97 mg/dL; VLDL CHOLESTEROL 19 mg/dL
[2021-04-16 12:32] LABS: CREATININE,URINE 233.6 mg/dL; MICROALBUM/CREATININE RATIO,UR 2.6 ug/mg (<30.0); MICROALBUMIN,URINE 0.6 mg/dL (0-300.0)
[2021-04-16 12:40] LABS: THYROID STIMULATING HORMONE 2.22 uIU/mL (0.34-5.60)
[2021-04-16 12:46] LABS: PROLACTIN 13.67 ng/mL
[2021-04-16 13:09] LABS: LUTEINIZING HORMONE 4.42 mIU/mL
== END 2021-04-16 07:50 | disposition home or self-care (01) ==
LOC: LAB.N 07:49
PROVIDERS: ATTEND Internal Medicine
DX: I10 Essential (primary) hypertension (principal); E66.01 Morbid (severe) obesity due to excess calories; R73.03 Prediabetes; R53.83 Other fatigue; R53.81 Other malaise
CPT/HCPCS: 36415; 80050; 80061; 81599; 82043; 82533; 82570; 83002; 83036; 83721; 84146; 84305; 84403

== ENCOUNTER 2021-10-22 02:21 | Emergency (ER) | payer MEDICAID ==
--- NOTE | 2021-10-22 03:14 | ED Physician Documentation ---
PD HPI CHEST PAIN - Stated complaint Stated Complaint: sharp pain left shoulder - Chief complaint Chief Complaint: Ext Problem - History obtained from History obtained from: Patient - History of Present Illness Timing - onset: Enter time (01:50) Timing - onset during: Sleep (woke patient from sleep) Timing - details: Abrupt onset Quality: Pain Location: Left shoulder/arm Radiation: Left upper extremity (proximal anterolateral aspect of left upper arm) Improved by: Nothing Worsened by: Other (no exacerbating factors) Associated symptoms: No: Shortness of air, Nausea, Vomiting Similar symptoms before: Has not had sx before Recently seen: Not recently seen Review of Systems Cardiac: reports: Reviewed and negative Respiratory: reports: Reviewed and negative GI: reports: Reviewed and negative Musculoskeletal: reports: Joint pain (left shoulder pain). denies: Extremity swelling, Joint swelling Neurologic: denies: Focal weakness, Numbness PD PAST MEDICAL HISTORY - Past Medical History Past Medical History: Yes Cardiovascular: Hypertension Respiratory: Pneumonia, Sleep apnea Neuro: None, Other Endocrine/Autoimmune: None GI: Diverticulitis, Other : Kidney stones HEENT: Chronic vision loss Psych: Depression, Anxiety, ADD/ADHD, Post traumatic stress disorder Musculoskeletal: None Derm: None - Past Surgical History Past Surgical History: Yes General: Bowel surgery - Present Medications Home Medications: Ambulatory Orders Medication Instructions Recorded Confirmed Citalopram Hydrobromide 20 mg PO DAILY 01/06/18 10/22/21 [Citalopram HBr] lamoTRIgine [LaMICtal] 100 mg PO BID 01/06/18 10/22/21 LORazepam [Ativan] 0.5 mg PO Q6H PRN 06/01/18 10/22/21 Metoprolol Tartrate 1.5 tab PO BID 06/01/18 10/22/21 lisinopriL [Lisinopril] 20 mg PO DAILY 06/01/18 10/22/21 - Allergies Allergies/Adverse Reactions: Allergies Allergy/AdvReac Type Severity Reaction Status Date / Time hydrocodone bitartrate * Allergy Intermediate Hallucinati Verified 10/22/21 02:30 [From Vicodin] ons varenicline [From Chantix] AdvReac Hallucinati Verified 10/22/21 02:30 ons - Social History Does the pt smoke?: No Smoking Status: Never smoker Does the pt drink ETOH?: No Does the pt have substance abuse?: No - Immunizations Immunizations are current?: Yes - POLST Patient has POLST: No PD ED PE NORMAL - Vitals Vital signs reviewed: Yes - General General: Alert and oriented X 3, No acute distress, Well developed/nourished - Cardiac Cardiac: RRR, No murmur - Respiratory Respiratory: No respiratory distress, Clear bilaterally Results - Vitals Vitals: Oxygen O2 Source Room air - EKG (time done) No standard instances Rate: Rate (enter#) (77) Rhythm: NSR [place]: Normal Intervals: Normal [place] QRS: Normal Ischemia: Normal ST segments - Labs Labs: Laboratory Tests 10/22/21 04:32 Troponin I High Sens 3.4 PD MEDICAL DECISION MAKING - ED course Complexity details: considered differential, d/w patient Departure - Departure Disposition: 01 Home, Self Care Clinical Impression: Pain of upper extremity Qualifiers: Laterality: left Qualified Code(s): M79.602 - Pain in left arm Condition: Good Instructions: ED Shoulder Pain [facility]O Follow-Up: Pk Baldwin MD [Primary Care Provider] - Within 1 week Comments: Your EKG has no concerning findings and your cardiac blood tests (troponin) is normal. The cause of your symptoms is unclear at this time. Follow up with your primary care provider if your symptoms persist. Discharge Date/Time: 10/22/21 05:37
[2021-10-22] MEDS ORDERED: KETOROLAC 30 MG/ML VIAL IM STA (04:26)
[2021-10-22 05:38] VITALS: BP 128/65
== END 2021-10-22 05:37 | disposition home or self-care (01) ==
LOC: ED 02:21
DX: M25.512 Pain in left shoulder (principal); I10 Essential (primary) hypertension
CPT/HCPCS: 36415; 84484; 93005; 96372; 99282; 99283

== ENCOUNTER 2021-10-28 07:06 | Outpatient (CLI) | payer MEDICAID ==
[2021-10-28 07:28] LABS: BASOPHILS # (AUTO) 0.1 10^3/uL (0.0-0.1); BASOPHILS % (AUTO) 0.6 %; EOSINOPHILS # (AUTO) 0.1 10^3/uL (0.0-0.7); EOSINOPHILS % (AUTO) 1.3 %; HCT - HEMATOCRIT 44.4 % (42.0-52.0); LYMPHOCYTES # (AUTO) 2.5 10^3/uL (1.5-3.5); LYMPHOCYTES % (AUTO) 30.2 %; MEAN CORPUSCULAR HEMOGLOBIN 27.8 pg (27.0-31.0); MEAN CORPUSCULAR HGB CONC 33.8 g/dL (32.0-36.0); MEAN CORPUSCULAR VOLUME 82.4 fL (80.0-94.0); MONOCYTES # (AUTO) 0.4 10^3/uL (0.0-1.0); NEUTROPHILS # (AUTO) 5.1 10^3/uL (1.5-6.6); NEUTROPHILS % (AUTO) 62.5 %; PLT - PLATELET COUNT 201 10^3/uL (130-450); RED BLOOD COUNT 5.39 10^6/uL (4.70-6.10); RED CELL DISTRIBUTION WIDTH 14.5 % (12.0-15.0); WHITE BLOOD COUNT 8.2 x10^3/uL (4.8-10.8)
[2021-10-28 07:40] LABS: ALBUMIN 3.7 g/dL (3.2-5.5); ALBUMIN/GLOBULIN RATIO 1.1 (1.0-2.2); ALKALINE PHOSPHATASE 57 IU/L (42-121); ALT ALANINE AMINOTRANSFERASE 41 IU/L (10-60); AST ASPARTATE AMINOTRANSFERASE 29 IU/L (10-42); BILIRUBIN,TOTAL 0.7 mg/dL (0.2-1.0); BUN - BLOOD UREA NITROGEN 17 mg/dL (6-20); CALCIUM 8.9 mg/dL (8.5-10.3); CARBON DIOXIDE - CO2 24 mmol/L (21-32); CHLORIDE 103 mmol/L (101-111); CHOL/HDL RATIO 3.7 (<5.0); CHOLESTEROL 142 mg/dL; GFR - MDRD 80 (>89); GLUCOSE 123 mg/dL (70-100); HDL CHOLESTEROL 38 mg/dL; LDL CHOLESTEROL,CALCULATED 85 mg/dL; LDL/HDL RATIO 2.2 (<3.6); POTASSIUM 3.8 mmol/L (3.5-5.0); SODIUM 137 mmol/L (135-145); TOTAL PROTEIN 7.1 g/dL (6.7-8.2); TRIGLYCERIDES 97 mg/dL; VLDL CHOLESTEROL 19 mg/dL
[2021-10-28 09:53] LABS: MICROALBUM/CREATININE RATIO,UR 2.9 ug/mg (<30.0); MICROALBUMIN,URINE 0.9 mg/dL (0-300.0)
[2021-10-28 10:51] LABS: ESTIMATED AVERAGE GLUCOSE 131 mg/dL (70-100); HEMOGLOBIN A1c% 6.2 % (4.27-6.07)
== END 2021-10-28 07:07 | disposition home or self-care (01) ==
LOC: LAB 07:06
PROVIDERS: ATTEND Internal Medicine
DX: E29.1 Testicular hypofunction (principal); R73.03 Prediabetes
CPT/HCPCS: 36415; 80053; 80061; 82043; 82570; 83036; 83721; 84153; 84403; 85025

== ENCOUNTER 2021-11-07 06:00 | Outpatient (CLI) | payer MEDICAID | END 2021-11-07 06:01 | disposition home or self-care (01) | LOC: LAB 06:00 | PROVIDERS: ATTEND Family Medicine | DX: E29.1 Testicular hypofunction (principal) | CPT/HCPCS: 36415; 84403 ==

== ENCOUNTER 2022-04-28 07:04 | Outpatient (CLI) | payer MEDICAID ==
[2022-04-28 07:35] LABS: BASOPHILS % (AUTO) 0.5 %; EOSINOPHILS # (AUTO) 0.1 10^3/uL (0.0-0.7); EOSINOPHILS % (AUTO) 1.5 %; HCT - HEMATOCRIT 45.5 % (42.0-52.0); LYMPHOCYTES # (AUTO) 2.1 10^3/uL (1.5-3.5); LYMPHOCYTES % (AUTO) 28.6 %; MEAN CORPUSCULAR HEMOGLOBIN 27.2 pg (27.0-31.0); MEAN CORPUSCULAR VOLUME 82.4 fL (80.0-94.0); MEAN PLATELET VOLUME 10.2 fL (7.4-11.4); MONOCYTES # (AUTO) 0.4 10^3/uL (0.0-1.0); NEUTROPHILS # (AUTO) 4.7 10^3/uL (1.5-6.6); NEUTROPHILS % (AUTO) 63.1 %; PLT - PLATELET COUNT 197 10^3/uL (130-450); RED BLOOD COUNT 5.52 10^6/uL (4.70-6.10); RED CELL DISTRIBUTION WIDTH 14.3 % (12.0-15.0); WHITE BLOOD COUNT 7.4 x10^3/uL (4.8-10.8)
[2022-04-28 08:02] LABS: ALBUMIN 3.8 g/dL (3.2-5.5); ALBUMIN/GLOBULIN RATIO 1.1 (1.0-2.2); ALKALINE PHOSPHATASE 55 IU/L (42-121); ALT ALANINE AMINOTRANSFERASE 34 IU/L (10-60); AST ASPARTATE AMINOTRANSFERASE 27 IU/L (10-42); BILIRUBIN,TOTAL 0.8 mg/dL (0.2-1.0); BUN - BLOOD UREA NITROGEN 19 mg/dL (6-20); CARBON DIOXIDE - CO2 27 mmol/L (21-32); CHLORIDE 101 mmol/L (101-111); CHOL/HDL RATIO 3.8 (<5.0); CHOLESTEROL 143 mg/dL; CREATININE 1.2 mg/dL (0.6-1.2); GFR - MDRD 65 (>89); GLUCOSE 108 mg/dL (70-100); HDL CHOLESTEROL 38 mg/dL; LDL CHOLESTEROL,CALCULATED 86 mg/dL; LDL/HDL RATIO 2.3 (<3.6); POTASSIUM 4.4 mmol/L (3.5-5.0); SODIUM 136 mmol/L (135-145); TOTAL PROTEIN 7.4 g/dL (6.7-8.2); TRIGLYCERIDES 95 mg/dL; VLDL CHOLESTEROL 19 mg/dL
[2022-04-28 08:05] LABS: THYROID STIMULATING HORMONE 1.98 uIU/mL (0.34-5.60)
[2022-04-28 08:55] LABS: CREATININE,URINE 258.6 mg/dL; MICROALBUM/CREATININE RATIO,UR 2.7 ug/mg (<30.0); MICROALBUMIN,URINE 0.7 mg/dL (0-300.0)
[2022-04-28 09:13] LABS: ESTIMATED AVERAGE GLUCOSE 134 mg/dL (70-100); HEMOGLOBIN A1c% 6.3 % (4.27-6.07)
== END 2022-04-28 07:05 | disposition home or self-care (01) ==
LOC: LAB 07:04
PROVIDERS: ATTEND Internal Medicine
DX: I10 Essential (primary) hypertension (principal); E78.5 Hyperlipidemia, unspecified; R73.03 Prediabetes; Z13.29 Encounter for screening for other suspected endocrine disorder
CPT/HCPCS: 36415; 80050; 80061; 82043; 82570; 83036; 83721

== ENCOUNTER 2022-05-15 23:54 | Emergency (ER) | payer MEDICAID ==
[2022-05-16 00:10] VITALS: BP 126/80
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
== END 2022-05-16 00:40 | disposition home or self-care (01) ==
LOC: ED 23:54
DX: S51.851A Open bite of right forearm, initial encounter (principal); W50.3XXA Accidental bite by another person, initial encounter; Y93.F9 Activity, other caregiving; Y92.538 Other ambulatory health services establishments as the place of occurrence of the external cause; Y99.0 Civilian activity done for income or pay
CPT/HCPCS: 1040M; 99281; 99282

== ENCOUNTER 2022-07-24 08:29 | Outpatient (CLI) | payer MEDICAID, OTHER ==
[2022-07-24 12:07] LABS: BASOPHILS % (AUTO) 0.6 %; EOSINOPHILS # (AUTO) 0.1 10^3/uL (0.0-0.7); EOSINOPHILS % (AUTO) 1.7 %; HCT - HEMATOCRIT 44.7 % (42.0-52.0); HGB - HEMOGLOBIN 14.6 g/dL (14.0-18.0); LYMPHOCYTES # (AUTO) 2.3 10^3/uL (1.5-3.5); LYMPHOCYTES % (AUTO) 31.8 %; MEAN CORPUSCULAR HEMOGLOBIN 27.9 pg (27.0-31.0); MEAN CORPUSCULAR HGB CONC 32.7 g/dL (32.0-36.0); MEAN CORPUSCULAR VOLUME 85.3 fL (80.0-94.0); MEAN PLATELET VOLUME 10.9 fL (7.4-11.4); MONOCYTES # (AUTO) 0.4 10^3/uL (0.0-1.0); MONOCYTES % (AUTO) 4.8 %; NEUTROPHILS # (AUTO) 4.4 10^3/uL (1.5-6.6); NEUTROPHILS % (AUTO) 60.8 %; PLT - PLATELET COUNT 199 10^3/uL (130-450); RED BLOOD COUNT 5.24 10^6/uL (4.70-6.10); RED CELL DISTRIBUTION WIDTH 13.7 % (12.0-15.0); WHITE BLOOD COUNT 7.3 x10^3/uL (4.8-10.8)
[2022-07-24 13:02] LABS: ALBUMIN 3.5 g/dL (3.2-5.5); BILIRUBIN,TOTAL 0.7 mg/dL (0.2-1.0); CALCIUM 8.5 mg/dL (8.5-10.3); CREATININE 1.1 mg/dL (0.6-1.2); POTASSIUM 3.8 mmol/L (3.5-5.0)
== END 2022-07-24 08:30 | disposition home or self-care (01) ==
LOC: LAB.N 08:29
PROVIDERS: ATTEND Family Medicine
DX: R19.7 Diarrhea, unspecified (principal); R10.31 Right lower quadrant pain
CPT/HCPCS: 36415; 80053; 83993; 85025; 87045; 87046; 87329; 87427; 87493

== ENCOUNTER 2022-08-10 09:05 | Outpatient (CLI) | payer MEDICAID ==
[2022-08-10 09:33] LABS: CREATININE,URINE 224.4 mg/dL; MICROALBUM/CREATININE RATIO,UR 2.7 ug/mg (<30.0); MICROALBUMIN,URINE 0.6 mg/dL (0-300.0)
[2022-08-10 09:40] LABS: ALBUMIN 3.6 g/dL (3.2-5.5); ALKALINE PHOSPHATASE 64 IU/L (42-121); ALT ALANINE AMINOTRANSFERASE 41 IU/L (10-60); AST ASPARTATE AMINOTRANSFERASE 32 IU/L (10-42); BILIRUBIN,TOTAL 0.8 mg/dL (0.2-1.0); BUN - BLOOD UREA NITROGEN 18 mg/dL (6-20); CALCIUM 8.8 mg/dL (8.5-10.3); CARBON DIOXIDE - CO2 26 mmol/L (21-32); CHLORIDE 105 mmol/L (101-111); CHOL/HDL RATIO 3.7 (<5.0); CHOLESTEROL 142 mg/dL; GFR - MDRD 80 (>89); GLUCOSE 132 mg/dL (70-100); HDL CHOLESTEROL 38 mg/dL; LDL CHOLESTEROL,CALCULATED 65 mg/dL; LDL/HDL RATIO 1.7 (<3.6); POTASSIUM 4.3 mmol/L (3.5-5.0); SODIUM 138 mmol/L (135-145); TOTAL PROTEIN 7.2 g/dL (6.7-8.2); TRIGLYCERIDES 193 mg/dL; VLDL CHOLESTEROL 39 mg/dL
[2022-08-10 09:52] LABS: THYROID STIMULATING HORMONE 1.51 uIU/mL (0.34-5.60)
[2022-08-10 11:41] LABS: ESTIMATED AVERAGE GLUCOSE 128 mg/dL (70-100); HEMOGLOBIN A1c% 6.1 % (4.27-6.07)
== END 2022-08-10 09:06 | disposition home or self-care (01) ==
LOC: LAB 09:05
PROVIDERS: ATTEND Internal Medicine
DX: E78.5 Hyperlipidemia, unspecified (principal); R73.03 Prediabetes; F41.8 Other specified anxiety disorders
CPT/HCPCS: 36415; 80053; 80061; 82043; 82570; 83036; 83721; 84443

== ENCOUNTER 2022-10-31 21:28 | Outpatient (CLI) | payer SELFPAY | END 2022-10-31 23:59 | disposition critical access hospital (66) | LOC: EMS 21:28 | DX: R44.3 Hallucinations, unspecified (principal); R45.1 Restlessness and agitation; T41.295A Adverse effect of other general anesthetics, initial encounter | CPT/HCPCS: A0425; A0429 ==

== ENCOUNTER 2022-10-31 21:45 | Emergency (ER) | payer MEDICAID, OTHER ==
[2022-10-31 22:36] VITALS: BP 115/74; O2SAT 95
--- NOTE | 2022-10-31 22:46 | ED Physician Documentation ---
PD HPI MHE - Stated complaint Stated Complaint: HALLUCINATIONS - Chief complaint Chief Complaint: MHE - History obtained from History obtained from: Patient - Additional information Additional information: 47-year-old man with history of depression and anxiety presents after taking a first dose of 300 mg ketamine today that was prescribed by his doctor. Patient states that he was feeling extremely anxious and having visual hallucinations but now feels better in the emergency department. He states that he feels calm has no complaints at this time. PD PAST MEDICAL HISTORY - Past Medical History Cardiovascular: Hypertension Respiratory: Pneumonia, Sleep apnea Neuro: None, Other Endocrine/Autoimmune: None GI: Diverticulitis, Other : Kidney stones HEENT: Chronic vision loss Psych: Depression, Anxiety, ADD/ADHD, Post traumatic stress disorder Musculoskeletal: None Derm: None - Past Surgical History Past Surgical History: Yes General: Bowel surgery - Present Medications Home Medications: Ambulatory Orders Medication Instructions Recorded Confirmed Citalopram Hydrobromide 20 mg PO DAILY 01/06/18 05/16/22 [Citalopram HBr] lamoTRIgine [LaMICtal] 100 mg PO BID 01/06/18 05/16/22 LORazepam [Ativan] 0.5 mg PO Q6H PRN 06/01/18 05/16/22 Metoprolol Tartrate 1.5 tab PO BID 06/01/18 05/16/22 lisinopriL [Lisinopril] 20 mg PO DAILY 06/01/18 05/16/22 Acetaminophen [Tylenol] 650 mg PO Q6H PRN #30 tablet 12/02/21 05/16/22 Ibuprofen [Motrin] 800 mg PO Q8H PRN #30 tablet 12/02/21 05/16/22 methocarbamoL [Robaxin] 500 mg PO Q6H PRN #20 tablet 12/02/21 05/16/22 - Allergies Allergies/Adverse Reactions: Allergies Allergy/AdvReac Type Severity Reaction Status Date / Time hydrocodone bitartrate * Allergy Intermediate Hallucinati Verified 10/31/22 21:57 [From Vicodin] ons [email or web address] [From Chantix] AdvReac Hallucinati Verified 10/31/22 21:57 ons - Social History Does the pt smoke?: No Smoking Status: Never smoker Does the pt drink ETOH?: No Does the pt have substance abuse?: No - Immunizations Immunizations are current?: Yes - POLST Patient has POLST: No PD ED PE NORMAL - Vitals Vital signs reviewed: Yes - General General: Alert and oriented X 3, No acute distress, Well developed/nourished - HEENT HEENT: Atraumatic, PERRL, EOMI - Neck Neck: Supple, no meningeal sign - Cardiac Cardiac: RRR - Respiratory Respiratory: No respiratory distress, Clear bilaterally - Abdomen Abdomen: Non tender, Non distended - Neuro Neuro: Alert and oriented X 3, 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 Denies SI/HI. Does state that he is having mild intermittent visual hallucinations but that they are not bothersome.) Results - Vitals Vitals: Vital Signs - 24 hr 10/31/22 10/31/22 10/31/22 21:53 21:59 22:27 Temperature 36.3 C L Heart Rate 88 79 Respiratory 21 0 L 16 Rate Blood Pressure 153/96 H 115/74 O2 Saturation 98 95 Oxygen O2 Source Room air PD Medical Decision Making - ED course ED course: 47-year-old man presents with visual hallucinations after taking his first dose of 300 mg ketamine for depression and anxiety. Patient is well-appearing and denies issues. He states that he feels calm and is having pleasant visual hallucinations. Partner at bedside states that she feels comfortable taking him home. Return precautions given. Plan to follow-up with primary care provider. Departure - Departure Disposition: 01 Home, Self Care Clinical Impression: Hallucinations Condition: Good Instructions: ED Stress React Comments: You were seen in the emergency department for hallucinations after taking ketamine. Your exam is normal now and you may return home since you're feeling better. Please follow-up with your primary care provider and return to the emergency department if you have any new or worsening symptoms or other concerns.
== END 2022-10-31 22:49 | disposition home or self-care (01) ==
LOC: EDUNIT# → ED 21:45
DX: R44.1 Visual hallucinations (principal); I10 Essential (primary) hypertension
CPT/HCPCS: 99282; 99284

== ENCOUNTER 2023-04-06 05:51 | Outpatient (CLI) | payer MEDICAID, OTHER ==
[2023-04-06 06:43] LABS: CALCIUM 9.3 mg/dL (8.5-10.3); POTASSIUM 4.1 mmol/L (3.5-4.5)
[2023-04-06 08:39] LABS: ESTIMATED AVERAGE GLUCOSE 114 mg/dL (70-100); HEMOGLOBIN A1c% 5.6 % (4.27-6.07)
== END 2023-04-06 05:52 | disposition home or self-care (01) ==
LOC: LAB 05:51
PROVIDERS: ATTEND Internal Medicine
DX: R73.03 Prediabetes (principal)
CPT/HCPCS: 36415; 80048; 83036

== ENCOUNTER 2023-06-13 06:02 | Day surgery (SDC) | payer OTHER, MEDICAID ==
[2023-06-13] MEDS: LACTATED RINGERS 1,000 ML IV ONE (06:27)
[2023-06-13] MEDS ORDERED: PROPOFOL 500 MG/50 ML 500 MG/50 ML VIAL ONE (06:56)
[2023-06-13] MEDS ORDERED: MIDAZOLAM 2 MG/2 ML VIAL ONE (06:56)
[2023-06-13] MEDS ORDERED: LIDOCAINE-PF 2% 10 ML AMP SUBQ ONE (06:56)
--- NOTE | 2023-06-13 07:07 | ANESTHESIA ---
Pre-Anesthesia VS, & Labs - Diagnosis screening, hx polyps - Procedure colonoscopy Vital Signs: Temp Pulse Resp BP Pulse Ox O2 Flow Rate 36.1 C L 85 19 128/91 H 97 06/13/23 06:44 06/13/23 06:44 06/13/23 06:44 06/13/23 06:44 06/13/23 06:44 Height: 5 ft 3 in Weight (kg): 119.9 kg Body Mass Index: 46.7 BMI Classification: Morbidly Obese - NPO >8 hours - Lab Results Current Lab Results: Laboratory Tests 06/13/23 06:48: POC Whole Bld Glucose 88 Lab results reviewed: Yes Home Medications and Allergies Home Medications: Ambulatory Orders Metoprolol Succinate [Toprol Xl] 50 mg PO DAILY 06/05/23 Sildenafil Citrate [Sildenafil] 20 mg PO DAILY PRN 06/05/23 metFORMIN [Glucophage] 850 mg PO BID 06/05/23 Citalopram Hydrobromide [Citalopram HBr] 20 mg PO DAILY 01/06/18 lamoTRIgine [LaMICtal] 50 - 100 mg PO BID 01/06/18 lisinopriL [Lisinopril] 20 mg PO DAILY 06/01/18 Metoprolol Succinate [Toprol Xl] 50 mg PO DAILY 06/05/23 Sildenafil Citrate [Sildenafil] 20 mg PO DAILY PRN 06/05/23 metFORMIN [Glucophage] 850 mg PO BID 06/05/23 Allergies/Adverse Reactions: Allergies Allergy/AdvReac Type Severity Reaction Status Date / Time hydrocodone Allergy Hallucinati Verified 06/13/23 06:55 ons pineapple Allergy Anaphylaxis Verified 06/05/23 12:42 [email or web address] [From Chantix] AdvReac Hallucinati Verified 10/31/22 21:57 ons Anes History & Medical History - Anesthetic History Anesthesia Complications: reports: No previous complications Family history of Anesthesia Complications: Denies Family history of Malignant Hyperthermia: Denies - Medical History Cardiovascular: reports: Hypertension Pulmonary: reports: Pneumonia, Sleep apnea Gastrointestinal: reports: Diverticulitis, Other Urinary: reports: Kidney stones Neuro: reports: None, Other Musculoskeletal: reports: None Endocrine/Autoimmune: reports: Other Blood Disorders: reports: None Skin: reports: None Smoking Status: Never smoker - Surgical History General: reports: Bowel surgery, Colonoscopy Cardiothoracic: reports: Other Urologic: reports: Testicular surgery Exam General: Alert, Oriented x3, Cooperative Dental: Dentures full Upper, Dentures full Lower Mouth Openin Fingerbreadth Neck Mobility: Normal Mallampati classification: II Thyromental Distance: 4-6 cm Respiratory: Lungs clear, Normal breath sounds, No respiratory distress Cardiovascular: Regular rate Neurological: Normal speech Mental/Cognitive Status: Alert/Oriented X3, Normal for patient Cognitive Status: Within normal limits Plan Anesthesia Type: General Consent for Procedure(s) Verified and Reviewed: Yes Code Status: Attempt Resuscitation ASA classification: 2-Mild systemic disease Is this case an emergency?: No
[2023-06-13] MEDS: LACTATED RINGERS 500 ML IV ONE ×2 (07:59→08:48)
[2023-06-13 08:26] VITALS: BP 137/94; O2SAT 96
--- NOTE | 2023-06-13 09:33 | ANESTHESIA POST OP EVALUATION ---
Anesthesia Post Eval - Post Anesthesia Eval Vitals: Last Vital Signs Temp 35.9 C L 06/13/23 08:18 Pulse 68 06/13/23 08:18 Resp 16 06/13/23 08:18 BP 137/94 H 06/13/23 08:18 Pulse Ox 96 06/13/23 08:18 O2 Flow Rate CV Function Including HR & BP: Stable Pain Control: Satisfactory Nausea & Vomiting: Negative Mental Status: Baseline Respiratory Status: Airway Patent Hydration Status: Satisfactory Anesthesia Complications: None
== END 2023-06-13 06:03 | disposition home or self-care (01) ==
LOC: SDS 06:02
PROVIDERS: ATTEND Surgery
DX: Z12.11 Encounter for screening for malignant neoplasm of colon (principal); Z86.010 Personal history of colon polyps; E66.01 Morbid (severe) obesity due to excess calories; Z68.42 Body mass index [BMI] 45.0-49.9, adult; G47.30 Sleep apnea, unspecified; I13.0 Hypertensive heart and chronic kidney disease with heart failure and stage 1 through stage 4 chronic kidney disease, or unspecified chronic kidney disease; N18.2 Chronic kidney disease, stage 2 (mild); I50.9 Heart failure, unspecified; F41.9 Anxiety disorder, unspecified; F32.A Depression, unspecified
CPT/HCPCS: 45378; J7120